=== PATIENT | male | born 1950 | race Caucasian/White ===

== ENCOUNTER 2018-07-21 13:22 | Observation (INO) | payer MEDICARE ==
[2018-07-21 13:52] LABS: Basophils % (A) 0 %; Eosinophils # (A) 0.2 k/uL (0-0.7); Eosinophils % (A) 3 %; HGB 13.8 gm/dL (13.0-17.5); Lymphocytes # (A) 1.4 k/uL (1.0-4.8); Lymphocytes % (A) 16 %; MCH 29.2 pg (25.0-35.0); MCHC 33.7 g/dL (31.0-37.0); MCV 86.7 fL (80.0-100.0); Mean Platelet Volume 6.7; Monocytes # (A) 0.5 k/uL (0-1.0); Monocytes % (A) 5 %; Neutrophils # (A) 6.8 k/uL (1.3-7.7); Neutrophils % (A) 75 %; Platelet Count 204 k/uL (150-450); RBC 4.74 m/uL (4.30-5.90); WBC 9.1 k/uL (3.8-10.6)
--- NOTE | 2018-07-21 13:52 | ED ---
General Adult HPI - General Chief complaint: Chest Pain Stated complaint: chest pain Time Seen by Provider: 07/21/18 13:29 Source: patient, RN notes reviewed, old records reviewed Mode of arrival: wheelchair Limitations: no limitations - History of Present Illness Initial comments: 68-year-old male presenting for evaluation of chest tightness. Patient states that over the past several weeks he's had progressive chest tightness which is relieved with nitroglycerin and rest. He has a history of coronary artery disease status post stenting. He was a previous smoker, is not currently smoking. He states that he took 2 nitroglycerin prior to arrival and has no complaints of chest pain or tightness at the time of my evaluation. No vomiting. He did have some associated diaphoresis with this tightness prior to arrival. He follows regularly with cardiology. Currently on aspirin and Plavix. - Related Data Home Medications Medication Instructions Recorded Confirmed Isosorbide Mononitrate ER [Imdur] 30 mg PO DAILY 04/29/15 07/21/18 Metoprolol Succinate (ER) [Toprol 100 mg PO QAM 04/29/15 07/21/18 XL] amLODIPine [Norvasc] 5 mg PO BID 04/29/15 07/21/18 Vit C/E/Zn/Coppr/Lutein/Zeaxan 1 cap PO BID 05/03/15 07/21/18 [Preservision Areds 2 Softgel] Quinapril HCl [Accupril] 20 mg PO BID 07/21/18 07/21/18 Simvastatin 80 mg PO HS 07/21/18 07/21/18 Previous Rx's Medication Instructions Recorded Aspirin 325 mg PO HS #30 tab 05/01/15 Clopidogrel [Plavix] 75 mg PO DAILY #90 tab 05/01/15 Nitroglycerin Sl Tabs [Nitrostat] 0.4 mg SUBLINGUAL Q5M PRN #25 tab 05/01/15 Allergies Allergy/AdvReac Type Severity Reaction Status Date / Time No Known Allergies Allergy Verified 07/21/18 13:50 Review of Systems ROS Statement: Those systems with pertinent positive or pertinent negative responses have been documented in the HPI. ROS Other: All systems not noted in ROS Statement are negative. Past Medical History Past Medical History: Cancer, Chest Pain / Angina, Eye Disorder, GERD/Reflux, Hyperlipidemia, Hypertension Additional Past Medical History / Comment(s): 05/01/15 Pt admitted to floor s/p PCI with stent. Other HX: R LUNG CANCER with surgery 2010, MACULAR DEGENERATION bilaterally, R eye retinal bleed, History of Any Multi-Drug Resistant Organisms: None Reported Past Surgical History: Heart Catheterization, Heart Catheterization With Stent Additional Past Surgical History / Comment(s): 05/01/15 PCI with stent to mid RCA radial approach. Other surgical history; 2010 RIGHT UPPER LOBECTOMY- RIGHT, 2010 AORTIC ANEURYSM REPAIR-STENT, PTCA x 3 vessels -NO STENTs in 1990, 02/19 bilateral cartaract removal with lens implants. Past Anesthesia/Blood Transfusion Reactions: No Reported Reaction Date of Last Stent Placement:: 05/01/15 Past Psychological History: No Psychological Hx Reported Smoking Status: Former smoker Past Alcohol Use History: Occasional Past Drug Use History: Unable to Obtain - Past Family History Mother Family Medical History: Cancer, Myocardial Infarction ([place]) Additional Family Medical History / Comment(s): BREAST CANCER. Mother at age 78 yrs of a [place] Father Family Medical History: Cancer, Prostate Disorder Additional Family Medical History / Comment(s): Father had prostate problems- possibly cancer of prostate and/or colon. He at age 65 yrs. General Exam Limitations: no limitations General appearance: alert, in no apparent distress Head exam: Present: atraumatic, normocephalic Eye exam: Present: normal appearance, PERRL Neck exam: Present: normal inspection, tenderness Respiratory exam: Present: normal lung sounds bilaterally. Absent: respiratory distress Cardiovascular Exam: Present: regular rate, normal rhythm GI/Abdominal exam: Present: soft. Absent: distended, tenderness, guarding Extremities exam: Present: normal inspection, normal capillary refill. Absent: pedal edema, calf tenderness Back exam: Present: normal inspection Neurological exam: Present: alert, oriented X3, CN II-XII intact. Absent: motor sensory deficit Psychiatric exam: Present: normal affect, normal mood Skin exam: Present: warm, dry, intact. Absent: cyanosis, diaphoretic Course Vital Signs 07/21/18 07/21/18 07/21/18 13:26 13:36 13:40 Temperature 97.9 F Pulse Rate 89 80 Respiratory 18 18 16 Rate Blood Pressure 157/92 151/100 O2 Sat by Pulse 98 95 Oximetry 07/21/18 07/21/18 07/21/18 13:50 14:00 14:10 Temperature Pulse Rate 77 81 84 Respiratory 14 18 18 Rate Blood Pressure 145/94 145/94 157/95 O2 Sat by Pulse 96 97 95 Oximetry EKG Findings - EKG Comments: EKG Findings:: EKG: Normal sinus rhythm, LVH, rate of 80, CA interval 166, QRS mormon 92, QTC [address] segment elevation Medical Decision Making - Medical Decision Making 68-year-old male presenting with chief complaint of chest pain. Pain relieved by nitroglycerin. Pain is typical in nature. Patient has history of previous CAD with stenting. He has no pain at the time my evaluation. EKG negative for ST segment elevation. Chest x-ray negative for acute cardiopulmonary disease. Patient has normal CBC, normal CMP, initial troponin is negative. Patient is given aspirin, started on heparin. He will be admitted for serial cardiac enzymes, telemetry, and cardiology consultation. Case is discussed with the admitting physician. - Lab Data Result diagrams: 07/21/18 13:30 07/21/18 13:30 Lab Results 07/21/18 07/21/18 07/21/18 Range/Units 13:30 13:30 13:30 WBC 9.1 (3.8-10.6) k/uL RBC 4.74 (4.30-5.90) m/uL Hgb 13.8 (13.0-17.5) gm/dL Hct 41.0 (39.0-53.0) % MCV 86.7 (80.0-100.0) fL MCH 29.2 (25.0-35.0) pg MCHC 33.7 (31.0-37.0) g/dL RDW 14.0 (11.5-15.5) % Plt Count 204 (150-450) k/uL Neutrophils % 75 % Lymphocytes % 16 % Monocytes % 5 % Eosinophils % 3 % Basophils % 0 % Neutrophils # 6.8 (1.3-7.7) k/uL Lymphocytes # 1.4 (1.0-4.8) k/uL Monocytes # 0.5 (0-1.0) k/uL Eosinophils # 0.2 (0-0.7) k/uL Basophils # 0.0 (0-0.2) k/uL PT 9.4 (9.0-12.0) sec INR 0.9 (<1.2) APTT 26.7 (22.0-30.0) sec Sodium 140 (137-145) mmol/L Potassium 4.2 (3.5-5.1) mmol/L Chloride 106 (98-107) mmol/L Carbon Dioxide 27 (22-30) mmol/L Anion Gap 7 mmol/L BUN 13 (9-20) mg/dL Creatinine 0.66 (0.66-1.25) mg/dL Est GFR (CKD-EPI)AfAm >90 (>60 ml/min/1.73 sqM) Est GFR (CKD-EPI)NonAf >90 (>60 ml/min/1.73 sqM) Glucose 94 (74-99) mg/dL Calcium 9.3 (8.4-10.2) mg/dL Magnesium 2.1 (1.6-2.3) mg/dL Total Bilirubin 0.8 (0.2-1.3) mg/dL AST 31 (17-59) U/L ALT 36 (21-72) U/L Alkaline Phosphatase 133 H (38-126) U/L Troponin I (0.000-0.034) ng/mL Total Protein 7.4 (6.3-8.2) g/dL Albumin 4.5 (3.5-5.0) g/dL 07/21/18 Range/Units 13:30 WBC (3.8-10.6) k/uL RBC (4.30-5.90) m/uL Hgb (13.0-17.5) gm/dL Hct (39.0-53.0) % MCV (80.0-100.0) fL MCH (25.0-35.0) pg MCHC (31.0-37.0) g/dL RDW (11.5-15.5) % Plt Count (150-450) k/uL Neutrophils % % Lymphocytes % % Monocytes % % Eosinophils % % Basophils % % Neutrophils # (1.3-7.7) k/uL Lymphocytes # (1.0-4.8) k/uL Monocytes # (0-1.0) k/uL Eosinophils # (0-0.7) k/uL Basophils # (0-0.2) k/uL PT (9.0-12.0) sec INR (<1.2) APTT (22.0-30.0) sec Sodium (137-145) mmol/L Potassium (3.5-5.1) mmol/L Chloride (98-107) mmol/L Carbon Dioxide (22-30) mmol/L Anion Gap mmol/L BUN (9-20) mg/dL Creatinine (0.66-1.25) mg/dL Est GFR (CKD-EPI)AfAm (>60 ml/min/1.73 sqM) Est GFR (CKD-EPI)NonAf (>60 ml/min/1.73 sqM) Glucose (74-99) mg/dL Calcium (8.4-10.2) mg/dL Magnesium (1.6-2.3) mg/dL Total Bilirubin (0.2-1.3) mg/dL AST (17-59) U/L ALT (21-72) U/L Alkaline Phosphatase (38-126) U/L Troponin I <0.012 (0.000-0.034) ng/mL Total Protein (6.3-8.2) g/dL Albumin (3.5-5.0) g/dL Critical Care Time Critical Care Time: Yes Total Critical Care Time: 35 Disposition Clinical Impression: Unstable angina pectoris, Chest pain Disposition: ADMITTED IP TO THIS [facility] Condition: Stable Is patient prescribed a controlled substance at d/c from ED?: No Referrals: Omar Luque MD [Primary Care Provider] - 1-2 days Decision to Admit Reason: Admit from EC Decision Date: 07/21/18 Decision Time: 14:51
--- NOTE | 2018-07-21 13:59 | XR ---
EXAMINATION TYPE: XR chest 2V DATE OF EXAM: 07/21/2018 COMPARISON: NONE HISTORY: Chest pain, coronary artery disease TECHNIQUE: Frontal and lateral views of the chest are obtained. FINDINGS: There is no focal air space opacity, pleural effusion, or pneumothorax seen. The cardiac silhouette size is within normal limits. The osseous structures are intact. There are overlying car diac leads. Aorta is dense. Surgical clips are present likely over the right hilar region. IMPRESSION: No acute cardiopulmonary process. Postop changes.
[2018-07-21 14:01] LABS: INR 0.9 (<1.2); Partial Thromboplastin Time 26.7 sec (22.0-30.0); Prothrombin Time 9.4 sec (9.0-12.0)
[2018-07-21 14:16] LABS: ALT 36 U/L (21-72); AST 31 U/L (17-59); Albumin 4.5 g/dL (3.5-5.0); Alkaline Phosphatase 133 U/L (38-126); Anion Gap 7 mmol/L; Blood Urea Nitrogen 13 mg/dL (9-20); Calcium 9.3 mg/dL (8.4-10.2); Carbon Dioxide 27 mmol/L (22-30); Chloride 106 mmol/L (98-107); Glucose 94 mg/dL (74-99); Magnesium 2.1 mg/dL (1.6-2.3); Potassium 4.2 mmol/L (3.5-5.1); Sodium 140 mmol/L (137-145); Total Bilirubin 0.8 mg/dL (0.2-1.3); Total Protein 7.4 g/dL (6.3-8.2)
[2018-07-21] MEDS ORDERED: ASPIRIN 325 MG TAB PO STA (14:39)
[2018-07-21] MEDS ORDERED: NITROGLYCERIN SL TABS 0.4 MG TAB SUBLINGUAL PRN ×2 (14:40→20:27)
[2018-07-21] MEDS ORDERED: HEPARIN SODIUM,PORCINE 5,000 UNIT/ML 1 ML VIAL IV PRN (14:44)
[2018-07-21] MEDS ORDERED: ACETAMINOPHEN TAB 325 MG TAB PO PRN (14:44)
[2018-07-21] MEDS ORDERED: NALOXONE 0.4 MG/ML 1 ML VIAL IV PRN (14:44)
[2018-07-21] MEDS ORDERED: HEPARIN SODIUM,PORCINE 5,000 UNIT/ML 1 ML VIAL IV ONE (14:44)
[2018-07-21] MEDS ORDERED: HEPARIN SOD,PORK IN 0.45% NACL 25,000 UNIT in 0.45% NACL 1 250ML.BAG IV SCH (14:45)
[2018-07-21] MEDS: ASPIRIN 325 MG TAB PO SCH (21:14)
[2018-07-21] MEDS: ATORVASTATIN 40 MG TAB PO SCH (21:35)
[2018-07-21] MEDS: amLODIPine 5 MG TAB PO SCH (21:35)
[2018-07-21] MEDS: VIT A,C & E-LUTEIN-MINERALS 1 EACH TAB PO SCH (21:36)
[2018-07-21] MEDS: LISINOPRIL 20 MG TAB PO SCH (21:36)
[2018-07-22 04:21] LABS: Basophils % (A) 1 %; Eosinophils # (A) 0.3 k/uL (0-0.7); Eosinophils % (A) 4 %; HCT 40.2 % (39.0-53.0); HGB 13.2 gm/dL (13.0-17.5); Lymphocytes # (A) 1.8 k/uL (1.0-4.8); Lymphocytes % (A) 26 %; MCHC 32.8 g/dL (31.0-37.0); MCV 88.4 fL (80.0-100.0); Mean Platelet Volume 6.7; Monocytes # (A) 0.5 k/uL (0-1.0); Monocytes % (A) 7 %; Neutrophils # (A) 4.2 k/uL (1.3-7.7); Neutrophils % (A) 61 %; Platelet Count 191 k/uL (150-450); RBC 4.55 m/uL (4.30-5.90); RDW 14.1 % (11.5-15.5); WBC 6.9 k/uL (3.8-10.6)
--- NOTE | 2018-07-22 10:12 | P.CRDCN ---
History of Present Illness History of present illness: This is a pleasant 68-year-old male past medical history significant for coronary artery disease status post balloon angioplasty and stent placement to the RCA, hypertension, dyslipidemia, abdominal aortic aneurysm status post endograft repair, obesity and former nicotine dependence. He follows in the office with Dr. Thompson. We've been asked to see him in consultation secondary to chest discomfort. He states for the previous 2 weeks he has been feeling discomfort in his chest. At first started about 2 weeks ago Wednesday while he was golfing he had to walk the course which is abnormal for him he typically will use a cart while he was finishing his 18-hole round of golf he started feeling a tightness in his chest. He stopped be was doing sat down on the tightness subsided. Again the following Wednesday while he was golfing he had a similar type episode while walking in 18-hole round of golf. This time he took one sublingual nitroglycerin and his symptoms subsided. Then again last night again while golfing and walking the course he made at this time only through 9 holes and he started having an intense tightness in the midsternal region that was radiating to the left shoulder and a little bit into the back. This time he became mildly short of breath, lightheaded and extremely flushed feeling. He took one sublingual nitroglycerin and the symptoms eased up but did not entirely go away. He walks to his car sat down and continued to have chest discomfort. He took a second nitroglycerin and his symptoms began eased but did not completely go away. He felt as though his chest pain was significant enough to where he did not finish his round of golf. He took a third nitroglycerin and came to the hospital. Upon arrival to the emergency department his chest discomfort had subsided. He is seen and examined resting comfortably in bed in no acute distress. He has had no further symptoms of chest discomfort however he states he has not come up out of bed. EKG upon arrival reveals sinus mechanism with no acute ST or T-wave abnormalities noted. Repeat EKG this morning is the same. Chest x-ray is negative for an acute cardiopulmonary process. Laboratory data reviewed, WBC 6.9, hemoglobin 13.2, platelets 191, cardiac enzymes negative 3, sodium 140, potassium 4.2, creatinine 0.66, GFR greater than 90, magnesium 2.1. Current cardiac medications include Toprol 100 mg daily, Plavix 75 mg daily, Imdur 30 mg daily, quinapril 20 mg twice a day, amlodipine 5 mg twice a day, aspirin 325 mg daily and simvastatin 80 mg daily. Most recent cardiac catheterization 2015 revealed 70-80% calcification in mid- RCA, LAD with 30-40% stenosis throughout, circumflex proximal 40-50% narrowing, dilated OM with 50% proximal stenosis, beyond the OM another narrowing of the distal circumflex 60-70%. He underwent successful stent placement to the RCA at that time. Most recent echocardiogram obtained in the office May 2017 reveals preserved LV systolic function with ejection fraction 50%, mild concentric left ventricular hypertrophy, hypokinesia of the inferior wall at the base, mildly dilated RV, mild-mod AR and mild TR. At the time of my exam: CONSTITUTIONAL: Denies fever. Denies chills. EYES: Denies blurred vision. Denies vision changes. Denies eye pain. EARS, NOSE, MOUTH & THROAT: Denies headache. Denies sore throat. Denies ear pain. CARDIOVASCULAR: Denies chest pain. Denies shortness of breath. Denies orthopnea. Denies PND. Denies palpitations. RESPIRATORY: Denies cough. GASTROINTESTINAL: Denies abdominal pain. Denies diarrhea. Denies constipation. Denies nausea. Denies vomiting. MUSCULOSKELETAL: Denies myalgias. INTEGUMENTARY: Denies pruitis. Denies rash. NEUROLOGIC: Denies numbness. Denies tingling. Denies weakness. PSYCHIATRIC: Denies anxiety. Denies depression. ENDOCRINE: Denies fatigue. Denies weight change. Denies polydipsia. Denies polyurina. GENITOURINARY: Denies burning, hematuria or urgency with micturation. HEMATOLOGIC: Denies history of anemia. Denies bleeding. Blood pressure 160/89 heart rate 74 afebrile maintaining oxygen saturation on room air GENERAL: This is a 68-year-old male in no apparent distress at the time of my examination. HEENT: Head is atraumatic, normocephalic. Pupils are equal, round. Sclerae anicteric. Conjunctivae are clear. Mucous membranes of the mouth are moist. Neck is supple. There is no jugular venous distention. No carotid bruit is heard. LUNGS: Clear to auscultation no wheezes, rales or rhonchi. No chest wall tenderness is noted on palpation or with deep breathing. HEART: Regular rate and rhythm without murmurs, rubs or gallops. S1 and S2 heard. ABDOMEN: Soft, nontender. Bowel sounds are heard. No organomegaly noted. EXTREMITIES: No evidence of peripheral edema and no calf tenderness noted. VASCULAR: Radial and dorsalis pedis pulses palpated, no evidence of clubbing. NEUROLOGIC: Patient is awake, alert and oriented x3. ASSESSMENT Unstable angina suggestive of progression of coronary artery disease History of coronary artery disease History of abdominal aortic aneurysm s/p endograft stent placement per vascular surgery Hypertension Dyslipidemia Former nicotine dependence Obesity, BMI 32 PLAN We recommend proceeding with coronary angiography to assess for progression of coronary artery disease. I have discussed the risks, benefits and alternative therapies for the above-mentioned procedure and for both sedation/analgesia as well as necessary blood product administration, if indicated, as they pertain to this patient. The patient has indicated understanding and acceptance of the risks and procedures discussed. Questions have been answered appropriately. He is agreeable to move forward with the above stated procedure. We will contact his primary professor of physical education Dr. Thompson and make plans for the procedure. Obtain 2D echocardiogram and doppler study to assess cardiac structure and function. Continue aspirin, plavix, imdur, toprol, lisinopril, amlodipine and simvastatin as previously ordered. Further recommendations to follow based on clinical course. Nurse Practitioner note has been reviewed, I agree with a documented findings and plan of care. Patient was seen and examined. Past Medical History Past Medical History: Coronary Artery Disease (CAD), Cancer, Chest Pain / Angina, Eye Disorder, GERD/Reflux, Hyperlipidemia, Hypertension Additional Past Medical History / Comment(s): R lung cancer with surgery in 2010, aortic aneurysm with surgery 2010, bilateral macular de generation/bilateral retinal bleeds-gets eye injections q 5 weeks. History of Any Multi-Drug Resistant Organisms: None Reported Past Surgical History: Heart Catheterization, Heart Catheterization With Stent Additional Past Surgical History / Comment(s): 05/01/15 PCI with stent to mid RCA radial approach, 2010 RIGHT UPPER LOBECTOMY, 2010 AORTIC ANEURYSM REPAIR- WITH STENT, PTCA x 3 vessels in 1990, bilateral cartaract removal with lens implants, COLONOSCOPY. Past Anesthesia/Blood Transfusion Reactions: No Reported Reaction Date of Last Stent Placement:: 05/01/15 Smoking Status: Former smoker - Past Family History Mother Family Medical History: Cancer, Myocardial Infarction ([place]) Additional Family Medical History / Comment(s): BREAST CANCER. Mother at age 78 yrs of a [place] Father Family Medical History: Cancer, Prostate Disorder Additional Family Medical History / Comment(s): Father had prostate problems- possibly cancer of prostate and/or colon. He at age 65 yrs. Medications and Allergies Home Medications Medication Instructions Recorded Confirmed Type Isosorbide Mononitrate ER [Imdur] 30 mg PO DAILY 04/29/15 07/21/18 History Metoprolol Succinate (ER) [Toprol 100 mg PO QAM 04/29/15 07/21/18 History XL] amLODIPine [Norvasc] 5 mg PO BID 04/29/15 07/21/18 History Aspirin 325 mg PO HS #30 tab 05/01/15 07/21/18 Rx Clopidogrel [Plavix] 75 mg PO DAILY #90 tab 05/01/15 07/21/18 Rx Nitroglycerin Sl Tabs [Nitrostat] 0.4 mg SUBLINGUAL Q5M PRN #25 tab 05/01/15 07/21/18 Rx Vit C/E/Zn/Coppr/Lutein/Zeaxan 1 cap PO BID 05/03/15 07/21/18 History [Preservision Areds 2 Softgel] Quinapril HCl [Accupril] 20 mg PO BID 07/21/18 07/21/18 History Simvastatin 80 mg PO HS 07/21/18 07/21/18 History Allergies Allergy/AdvReac Type Severity Reaction Status Date / Time No Known Allergies Allergy Verified 07/21/18 13:50 Physical Exam Vitals: Vital Signs Temp Pulse Pulse Resp BP BP Pulse Ox 07/22/18 08:00 18 07/22/18 07:30 97.5 F L 74 18 160/89 96 07/22/18 04:00 98.2 F 73 18 150/80 94 L 07/22/18 03:39 18 07/22/18 00:00 98.3 F 79 18 145/78 95 07/21/18 21:08 95 07/21/18 20:00 18 07/21/18 19:14 98.1 F 77 18 154/84 95 07/21/18 15:44 98.8 F 78 18 156/89 96 05/16/19 15:30 166/86 07/21/18 15:20 166/86 95 07/21/18 15:10 154/88 07/21/18 15:00 98.0 F 75 18 165/90 95 07/21/18 14:50 76 18 165/90 94 L 07/21/18 14:40 76 18 146/86 95 07/21/18 14:30 75 18 146/84 95 07/21/18 14:20 80 17 146/84 96 07/21/18 14:10 84 18 157/95 95 07/21/18 14:00 81 18 145/94 97 07/21/18 13:50 77 14 145/94 96 07/21/18 13:40 80 16 151/100 95 07/21/18 13:36 18 07/21/18 13:26 97.9 F 89 18 157/92 98 Intake and Output 07/21/18 07/22/18 07/22/18 22:59 06:59 14:59 Intake Total 304.112 Balance 304.112 Intake: Intake, IV Titration 64.112 Amount Heparin Sod,Pork in 0.45% 64.112 NaCl 25,000 unit In 0.45 % NaCl 1 250ml.bag @ 10 UNITS/KG/HR 10.07 mls/hr IV .Q24H [facility] Rx#: [id number] Oral 240 Other: Voiding Method Toilet Toilet Toilet # Voids 1 Results 07/22/18 03:52 07/21/18 13:30 Cardiac Enzymes 07/21/18 07/21/18 07/21/18 Range/Units 13:30 13:30 19:38 AST 31 (17-59) U/L Troponin I <0.012 <0.012 (0.000-0.034) ng/mL 07/22/18 Range/Units 01:05 AST (17-59) U/L Troponin I <0.012 (0.000-0.034) ng/mL Coagulation 07/21/18 07/21/18 07/22/18 Range/Units 13:30 21:02 03:52 PT 9.4 (9.0-12.0) sec APTT 26.7 43.2 H 53.2 H (22.0-30.0) sec 07/22/18 Range/Units 07:29 PT (9.0-12.0) sec APTT 55.8 H (22.0-30.0) sec CBC 07/21/18 07/22/18 Range/Units 13:30 03:52 WBC 9.1 6.9 (3.8-10.6) k/uL RBC 4.74 4.55 (4.30-5.90) m/uL Hgb 13.8 13.2 (13.0-17.5) gm/dL Hct 41.0 40.2 (39.0-53.0) % Plt Count 204 191 (150-450) k/uL Comprehensive Metabolic Panel 07/21/18 Range/Units 13:30 Sodium 140 (137-145) mmol/L Potassium 4.2 (3.5-5.1) mmol/L Chloride 106 (98-107) mmol/L Carbon Dioxide 27 (22-30) mmol/L BUN 13 (9-20) mg/dL Creatinine 0.66 (0.66-1.25) mg/dL Glucose 94 (74-99) mg/dL Calcium 9.3 (8.4-10.2) mg/dL AST 31 (17-59) U/L ALT 36 (21-72) U/L Alkaline Phosphatase 133 H (38-126) U/L Total Protein 7.4 (6.3-8.2) g/dL Albumin 4.5 (3.5-5.0) g/dL Current Medications Generic Name Dose Route Start Last Admin Trade Name Freq PRN Reason Stop Dose Admin Acetaminophen 650 mg 07/21/18 14:44 Tylenol Tab PO Q6HR PRN Mild Pain or Fever > 100.5 Amlodipine Besylate 5 mg 07/21/18 21:00 07/21/18 21:35 Norvasc PO 5 mg BID NARESH Administration Aspirin 325 mg 07/21/18 21:00 07/21/18 21:14 Aspirin PO Not Given HS [facility] Atorvastatin Calcium 40 mg 07/21/18 21:00 07/21/18 21:35 Lipitor PO 40 mg HS NARESH Administration Clopidogrel Bisulfate 75 mg 07/22/18 09:00 Plavix PO DAILY [facility] Heparin Sodium (Porcine) 0 unit 07/21/18 14:44 Heparin IV PER PROTOCOL PRN Low PTT Protocol Heparin Sodium/Sodium Chloride 250 mls @ 10.07 mls/hr 07/21/18 14:45 07/21/18 21:43 25,000 unit/ Sodium Chloride IV 12 units/kg/hr .Q24H NARESH 12.084 mls/hr Titration Protocol 10 UNITS/KG/HR Isosorbide Mononitrate 30 mg 07/22/18 09:00 Imdur PO DAILY [facility] Lisinopril 20 mg 07/21/18 21:00 07/21/18 21:36 Zestril PO 20 mg BID [facility] Administration Metoprolol Succinate 100 mg 07/22/18 09:00 Toprol Xl PO QAM [facility] Multivitamins/Minerals 1 each 07/21/18 21:00 07/21/18 21:36 Ivite PO 1 each BID [facility] Administration Naloxone HCl 0.2 mg 07/21/18 14:44 Narcan IV Q2M PRN Opioid Reversal Nitroglycerin 0.4 mg 07/21/18 20:27 Nitrostat SUBLINGUAL Q5M PRN Chest Pain Intake and Output 07/21/18 07/22/18 07/22/18 22:59 06:59 14:59 Intake Total 304.112 Balance 304.112 Intake: Intake, IV Titration 64.112 Amount Heparin Sod,Pork in 0.45% 64.112 NaCl 25,000 unit In 0.45 % NaCl 1 250ml.bag @ 10 UNITS/KG/HR 10.07 mls/hr IV .Q24H [facility] Rx#: [id number] Oral 240 Other: Voiding Method Toilet Toilet Toilet # Voids 1 07/22/18 03:52 07/21/18 13:30
[2018-07-22] MEDS: METOPROLOL SUCCINATE (ER) 100 MG TAB.ER.24H PO SCH (10:37)
[2018-07-22] MEDS: ASPIRIN 325 MG TAB PO SCH (10:37)
[2018-07-22] MEDS: VIT A,C & E-LUTEIN-MINERALS 1 EACH TAB PO SCH ×2 (10:37→20:18)
[2018-07-22] MEDS: CLOPIDOGREL 75 MG TAB PO SCH (10:38)
[2018-07-22] MEDS: LISINOPRIL 20 MG TAB PO SCH ×2 (10:38→20:14)
[2018-07-22] MEDS: ISOSORBIDE MONONITRATE ER 30 MG TAB.ER.24H PO SCH (10:38)
[2018-07-22] MEDS: amLODIPine 5 MG TAB PO SCH ×2 (10:38→20:14)
[2018-07-22] MEDS ORDERED: ALPRAZolam 0.5 MG TAB PO PRN (10:40)
[2018-07-22] MEDS ORDERED: ALPRAZolam 0.25 MG TAB PO PRN (10:40)
--- NOTE | 2018-07-22 10:46 | ECHOF ---
Referral Reason:cp MEASUREMENTS -------- HEIGHT: 175.3 cm WEIGHT: 100.7 kg BP: 160/89 RVIDd: 3.2 cm (< 3.3) IVSd: 1.5 cm (0.6 - 1.1) LVIDd: 4.3 cm (3.9 - 5.3) LVPWd: 1.5 cm (0.6 - 1.1) IVSs: 1.9 cm LVIDs: 3.2 cm LVPWs: 1.9 cm LA Diam: 3.8 cm (2.7 - 3.8) LAESV Index (A-L): 26.58 ml/m Ao Diam: 3.8 cm (2.0 - 3.7) AV Cusp: 2.6 cm (1.5 - 2.6) MV EXCURSION: 17.332 mm (> 18.000) MV EF SLOPE: 49 mm/s (70 - 150) EPSS: 1.1 cm MV E Abdelrahman: 0.92 m/s MV DecT: 209 ms MV A Abdelrahman: 1.14 m/s MV E/A Ratio: 0.81 AR PHT: 644 ms RAP: 5.00 mmHg RVSP: 36.66 mmHg FINDINGS -------- Sinus rhythm. This was a technically difficult study with suboptimal views. The left ventricular size is normal. There is moderate concentric left ventricular hypertrophy. O verall left ventricular systolic function is normal with, an EF between 60 - 65 %. The right ventricle is normal in size. Normal LA size by volume 22+/-6 ml/m2. The right atrium is normal in size. 3 ml of Lumason was utilized for enhancement of images. Interatrial and interventricular septum intact. The aortic valve is trileaflet and appears structurally normal. Mild mitral annular calcification present. Mild tricuspid regurgitation present. There is mild pulmonary hypertension. The right ventricular systolic pressure, as measured by Doppler, is 36.66mmHg. The pulmonic valve was not well visualized. The aortic root is dilated measuring 3.8cm. IVC Not well visulized. There is no pericardial effusion. CONCLUSIONS -------- 1. Sinus rhythm. 2. This was a technically difficult study with suboptimal views. 3. The left ventricular size is normal. 4. There is moderate concentric left ventricular hypertrophy. 5. Overall left ventricular systolic function is normal with, an EF between 60 - 65 %. 6. The right ventricle is normal in size. 7. Normal LA size by volume 22+/-6 ml/m2. 8. The right atrium is normal in size. 9. 3 ml of Lumason was utilized for enhancement of images. 10. Interatrial and interventricular septum intact. 11. The aortic valve is trileaflet and appears structurally normal. 12. Mild mitral annular calcification present. 13. Mild tricuspid regurgitation present. 14. There is mild pulmonary hypertension. 15. The right ventricular systolic pressure, as measured by Doppler, is 36.66mmHg. 16. The pulmonic valve was not well visualized. 17. The aortic root is dilated measuring 3.8cm. 18. IVC Not well visulized. 19. There is no pericardial effusion. SOCIAL MEDIA SPECIALIST: Shaina Reynolds RDCS
[2018-07-22] MEDS ORDERED: LIDOCAINE 1% INJ 10MG/ML (20 ML MDV) ONE (13:22)
[2018-07-22] MEDS ORDERED: VERAPAMIL 2.5 MG/ML 2 ML AMP ONE (13:22)
[2018-07-22] MEDS ORDERED: HEPARIN SODIUM 1,000 UN/ML (10ML VL) ONE (13:22)
[2018-07-22] MEDS ORDERED: IV FLUID CONTINUATION 250 ML IV ONE (13:30)
[2018-07-22] MEDS ORDERED: MIDAZOLAM (PF) 2 MG/2 ML VIAL IV ONE (13:56)
[2018-07-22] MEDS ORDERED: LIDOCAINE 1% INJ 10MG/ML (20 ML MDV) SQ ONE (14:14)
[2018-07-22] MEDS ORDERED: VERAPAMIL SYRINGE (5 MG/10 ML) INTRAARTER ONE ×3 (14:16→15:27)
[2018-07-22] MEDS ORDERED: BIVALIRUDIN BOLUS 250 MG/50 ML IV ONE (14:44)
[2018-07-22] MEDS ORDERED: BIVALIRUDIN 250 MG in SODIUM CHLORIDE 0.9% 35 ML IV ONE (14:44)
[2018-07-22] MEDS ORDERED: IOPAMIDOL-370 125ML BTL INJ ONE (14:49)
--- NOTE | 2018-07-22 14:54 | HP ---
HISTORY AND PHYSICAL DATE OF ADMISSION: 07/21/2018 DATE OF SERVICE: 07/22/2018 PRESENTING COMPLAINT: Chest pain. HISTORY OF PRESENTING COMPLAINT: This is a very pleasant 68-year-old patient of Dr. Omar Luque. Chronic stable medical conditions include GERD, hyperlipidemia, hypertension. Patient's last stent was in 2015. In April of last year the patient did have a negative stress test. The patient 2 weeks ago played 18 holes of golf. On the 17th hole to the 18th hole the patient developed chest tightness, then when he rested it got better. The same thing happened the following week. The patient also on the 9th hole did get pain across the chest. There was no radiation, no perspiration, but patient did feel flushed and rundown. Patient did take a nitroglycerin. He was admitted with unstable angina. Serial cardiac enzymes were ordered. Cardiology was consulted. REVIEW OF SYSTEMS: CONSTITUTIONAL: Tired. HEENT: None. RESPIRATORY: None. CARDIOVASCULAR: As above. GASTROINTESTINAL: None. GENITOURINARY: None. MUSCULOSKELETAL: None. DERMATOLOGICAL: None. HEMATOLOGICAL: None. LYMPHATICS: None. PSYCHIATRY: None. NEUROLOGICAL: None. PAST MEDICAL HISTORY: 1. Coronary artery disease. 2. Eye disorder. 3. GERD. 4. Hyperlipidemia. 5. Hypertension. 6. Right leg cancer with surgery in 2010. 7. Aortic aneurysm with surgery in 2010. 8. Bilateral macular degeneration with retinal bleeds. Gets eye injections every 5 weeks. PAST SURGICAL HISTORY: 1. Cardiac cath with stent in 2015. Stent to the mid RCA. 2. Right upper lobe lobectomy. 3. Aortic aneurysm repair in 2010. 4. Bilateral cataract removal and lens implants. SOCIAL HISTORY: . Patient started smoking in 1965 and was a 2- [id number] smoker of cigarettes and he also smoked pipes. Stopped in 2010. Alcohol occasionally. 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 FAMILY HISTORY: Mother at age 78 from [place] and also breast cancer. HOME MEDICATIONS: 1. Simvastatin 80 mg at bedtime. 2. Aspirin 325 p.o. at bedtime. 3. Norvasc 5 mg b.i.d. 4. PreserVision Areds-2 Soft Gel 1 capsule p.o. b.i.d. 5. Accupril 20 mg b.i.d. 6. Nitrostat 0.4 sublingually q.5 p.r.n. 7. Toprol-XL 100 mg p.o. daily. 8. Imdur ER 30 mg p.o. daily. 9. Plavix 75 mg p.o. daily. ALLERGIES: NONE. PHYSICAL EXAMINATION: VITAL SIGNS ON PRESENTATION: Temperature 97.9, pulse 89, respiration 18, blood pressure 157/92, pulse ox 98% on room air. GENERAL APPEARANCE: Average build. BMI 32.8. Lying in bed, not in distress. EYES: Pupils equal. Conjunctivae normal. HEENT: External appearance of nose and ears normal. Oral cavity normal. NECK: JVD not raised. Mass not palpable. RESPIRATORY: Effort normal. LUNGS: Slightly decreased breath sounds. CARDIOVASCULAR: First and second sounds normal. No edema. ABDOMEN: Soft, non-tender. Liver and spleen not palpable. LYMPHATIC: No lymph node palpable in neck or axillae. PSYCHIATRY: Alert and oriented x3. Mood and affect normal. NEUROLOGICAL: Pupils equal. Cranial nerves grossly intact. Power and sensation grossly intact. INVESTIGATIONS: White count 9.1, hemoglobin 13.8, potassium 4.2. BUN and creatinine are normal. Troponin x3 negative. Two-D echocardiogram showed EF of 60% to 65%, concentric left ventricular hypertrophy. EKG tracing, personally reviewed by me, shows normal sinus rhythm. Chest x-ray film, personally reviewed by me, shows some cardiomegaly; lung armando unremarkable. ASSESSMENT: 1. Unstable angina in a patient with known prior coronary artery disease. 2. Obesity, body mass index 32.8. 3. Coronary artery disease with prior history of stent in 2016. 4. Essential hypertension. 5. Hyperlipidemia. PLAN: Home medications are resumed. Serial cardiac enzymes were ordered. Cardiology was consulted. Later I was informed that the patient will be going for a cardiac catheterization. Care was discussed with the patient. MMODL / IJN: [id number] /
[2018-07-22] MEDS ORDERED: IOPAMIDOL-370 100ML BTL INJ ONE ×2 (15:19→15:28)
[2018-07-22] MEDS ORDERED: HYDROmorphone 1 MG/ML 1 ML SYRINGE ONE (15:23)
[2018-07-22] MEDS ORDERED: NITROGLYCERIN 1000MCG/10ML SYRINGE INTRACORON ONE (15:24)
[2018-07-22] MEDS ORDERED: HYDROmorphone 1 MG/ML 1 ML SYRINGE IVP ONE (15:24)
[2018-07-22] MEDS ORDERED: CLOPIDOGREL 75 MG TAB ONE (15:27)
[2018-07-22] MEDS ORDERED: CLOPIDOGREL 75 MG TAB PO ONE (15:28)
[2018-07-22] MEDS ORDERED: NITROGLYCERIN SL TABS 0.4 MG TAB SUBLINGUAL PRN (15:37)
[2018-07-22] MEDS ORDERED: ZOLPIDEM 5 MG TAB PO PRN (15:37)
[2018-07-22] MEDS ORDERED: RX INFO: IV CONTRAST WAS GIVEN 1 EACH MISC MISCELLANE PRN (15:37)
[2018-07-22] MEDS ORDERED: ATROPINE SULFATE 0.1 MG/ML 10ML SYRINGE IV PRN (15:37)
[2018-07-22] MEDS ORDERED: MAG HYDROX/AL HYDROX/SIMETH 30 ML CUP PO PRN (15:37)
--- NOTE | 2018-07-22 18:39 | PCN ---
PROCEDURE NOTE DATE OF SERVICE: 07/22/2018 PROCEDURE: 1. Left heart catheterization and coronary angiography. 2. Percutaneous transluminal coronary angioplasty and stenting of proximal right coronary artery with a drug-eluting stent. 3. Percutaneous transluminal coronary angioplasty and stenting of proximal and mid circumflex with 2 separate drug-eluting stents. PERFORMED BY: Dr. Hedy Thompson. SEDATION: Moderate conscious sedation time was 77 minutes. The patient received Versed. His oxygen saturation, hemodynamics and EKG were monitored closely. CLINICAL INFORMATION: Mr. Del Valle is a 68-year-old gentleman with a known history of CAD, multiple PCIs. Initially in 1989 and 1990, I performed stenting of the first obtuse marginal branch of circumflex and also mid circumflex. I performed PTCA but did not do any stenting at that time. He almost has 2 separate ostia for the LAD and circumflex. As recently as April of 2015 I performed stenting of a very difficult RCA mid lesion which was also tortuous, calcified, and a 3.5 caliber 9 mm drug-eluting stent was deployed. The patient has been doing remarkably well but of late had symptoms of chest pain which culminated in hospitalization with unstable angina yesterday without elevation of enzymes. He was advised coronary angiography, and after due discussion regarding risks, benefits and options, he was brought in for the procedure. PROCEDURE NOTE: Under local anesthesia and strict aseptic precautions, a 6-Romanian introducer was placed in the right radial artery. Using an Ultimate 1 catheter, I performed selective coronary angiography of the LAD, but I could not get selective injection of the circumflex, which almost came from 2 separate origins. I used a standard right Mable type guide catheter for selective coronary angiography of the right coronary artery. I used an Ultimate 1 catheter to check LV pressures but did not perform an LV gram. I noted that there was a significant lesion in the proximal RCA and also proximal circumflex and proceeded to perform intervention in the same setting. CARDIAC CATHETERIZATION FINDINGS: The left ventricular end-diastolic pressure was about 12 mmHg without any gradient across the aortic valve. CORONARY ANGIOGRAPHY FINDINGS: RIGHT CORONARY ARTERY: Technically a very dominant vessel which has multiple areas of narrowing and ectatic segments, but very proximally there is an eccentric area of narrowing of about 70%, best seen in the cranial projection. The previously stented vessel in the mid RCA is widely patent without any evidence of significant restenosis. There is about a 30% narrowing noted. This large vessel bifurcates into PDA and PLV. The PDA is larger, has minor irregularities. PLV is smaller but provides collaterals to the distal branches of the circumflex. LEFT MAIN CORONARY ARTERY: This does not exist and there are almost 2 separate origins for the LAD and circumflex. LEFT ANTERIOR DESCENDING CORONARY ARTERY: Good-caliber vessel, has moderate calcification. In the proximal one third there is about a 40% proximal lesion, then the caliber improves, gives off diagonal and septal branches, runs all the way to the apex to supply the apical portion of the left ventricle. No significant disease in the LAD. LEFT POSTERIOR CIRCUMFLEX CORONARY ARTERY: Technically this is a nondominant vessel which was dilated in 1989 and 1990. Very tortuous vessel. Proximally has an eccentric 80% to 90% lesion which represents progression of disease. It then gives off a very high obtuse marginal that comes at a 90-degree angle. This has a 50% to 60% narrowing and then it continues as a second obtuse marginal which has a 60% to 70% narrowing. Both these vessels are unchanged. Just before the bifurcation, there is a focal 80% stenosis in the mid circumflex. Proximal circumflex has 80% to 90%. Mid circumflex has 80% lesion. Both the obtuse marginals have significant disease. Technically, both obtuse marginals are very difficult to perform intervention, but the proximal and mid circumflex seem amenable. LEFT VENTRICULOGRAM: This was not performed. FINAL IMPRESSION: This patient has a right-dominant system. No restenosis at the site of previous stenting, but proximal RCA has a 75% eccentric lesion and circumflex proximally and in mid portion has an 80% to 90% and another 70% to 80% lesion in the proximal and mid segments. Both obtuse marginal branches have disease. LAD has 40% narrowing, calcification, but no significant disease. Filling pressures are normal and no gradient across aortic valve. RECOMMENDATIONS: I recommended PCI of both RCA and circumflex and proceeded to perform in the same setting. PERCUTANEOUS CORONARY INTERVENTION PROCEDURE DETAILS: The patient was administered Angiomax bolus and infusion. He also received 300 mg of Plavix orally; patient was already on Plavix. Using a standard right Mable catheter and a run-through wire, I advanced the wire distally and kept it. Without predilatation, proximal RCA was stented with a 3.5 caliber 8 mm Xience stent up to 15 atmospheres. Excellent angiographic result was achieved. Patient had chest pain, but no significant EKG changes. Excellent angiographic result was achieved. I then switched over to a standard left Mable type guide catheter to cannulate the left circumflex coronary artery. The same run-through wire was kept distally in the second obtuse marginal branch. I advanced a 2.5 caliber NC Trek balloon of 12 mm length, but I could not go beyond the bifurcation because of extreme tortuosity and calcification. I pre-dilated both the lesions of the mid and proximal circumflex, but did not go into the obtuse marginal branches. I then deployed a 2.5 caliber 8 mm Xience stent in the mid lesion at 13 atmospheres and then a 3.25 caliber 8 mm Xience stent in the proximal circumflex at 14 atmospheres. Excellent angiographic result was achieved. Patient had chest pain, but no significant EKG changes. The sheath was taken out and a TR band applied as per protocol. Saturation in the fingers of the right hand was 95%. Excellent angiographic result without complication was achieved. Results were discussed with the patient and family and he was sent to the room in stable condition. MMODL / IJN: [id number] /
[2018-07-22] MEDS: SODIUM CHLORIDE 0.9% 1,000 ML IV SCH (18:53)
[2018-07-22] MEDS: ATORVASTATIN 40 MG TAB PO SCH (20:14)
[2018-07-22] MEDS ORDERED: ASPIRIN 81 MG PO SCH (21:00)
[2018-07-22 23:39] VITALS: RESP 18
[2018-07-23] MEDS: SODIUM CHLORIDE 0.9% 1,000 ML IV SCH (04:24)
[2018-07-23 05:51] LABS: Basophils % (A) 1 %; Eosinophils # (A) 0.3 k/uL (0-0.7); Eosinophils % (A) 4 %; HCT 41.1 % (39.0-53.0); HGB 13.1 gm/dL (13.0-17.5); Lymphocytes # (A) 1.1 k/uL (1.0-4.8); Lymphocytes % (A) 14 %; MCH 28.1 pg (25.0-35.0); MCHC 31.9 g/dL (31.0-37.0); MCV 88.2 fL (80.0-100.0); Mean Platelet Volume 7.2; Monocytes # (A) 0.4 k/uL (0-1.0); Monocytes % (A) 6 %; Neutrophils # (A) 5.7 k/uL (1.3-7.7); Neutrophils % (A) 74 %; Platelet Count 180 k/uL (150-450); RBC 4.66 m/uL (4.30-5.90); RDW 14.2 % (11.5-15.5); WBC 7.7 k/uL (3.8-10.6)
[2018-07-23 06:09] LABS: Anion Gap 5 mmol/L; Blood Urea Nitrogen 16 mg/dL (9-20); Calcium 8.9 mg/dL (8.4-10.2); Carbon Dioxide 25 mmol/L (22-30); Chloride 110 mmol/L (98-107); Glucose 90 mg/dL (74-99); Potassium 4.3 mmol/L (3.5-5.1); Sodium 140 mmol/L (137-145)
[2018-07-23] MEDS: LISINOPRIL 20 MG TAB PO SCH (10:04)
[2018-07-23] MEDS: METOPROLOL SUCCINATE (ER) 100 MG TAB.ER.24H PO SCH (10:04)
[2018-07-23] MEDS: ISOSORBIDE MONONITRATE ER 30 MG TAB.ER.24H PO SCH (10:04)
[2018-07-23] MEDS: amLODIPine 5 MG TAB PO SCH (10:04)
[2018-07-23] MEDS: CLOPIDOGREL 75 MG TAB PO SCH (10:04)
[2018-07-23] MEDS: VIT A,C & E-LUTEIN-MINERALS 1 EACH TAB PO SCH (10:10)
--- NOTE | 2018-07-23 11:18 | PN ---
PROGRESS NOTE Mr. Del Valle is a 68-year-old male who presented with symptoms of angina pectoris underwent coronary angioplasty and stenting yesterday by Dr. Hedy Thompson. He underwent stenting of the right coronary artery and circumflex. He is feeling well this morning. His breathing is stable. He denies any chest pain. No dizziness or palpitation. No nausea. He continues to be on aspirin once a day, Lipitor 40 mg daily, Plavix 75 mg daily, Imdur 30 mg daily, lisinopril 20 mg twice a day, metoprolol succinate 100 mg daily. PHYSICAL EXAMINATION: Blood pressure 140/70 with a heart rate in 70s. LUNGS: Clear. Heart regular rate and rhythm. S1, S2. No S3. No rub. ABDOMEN: Soft, nontender. Right radial pulse intact. EXTREMITIES: No edema. LAB DATA: Hemoglobin of 13.1. BUN and creatinine 16 and 0.62. IMPRESSION: 1. Status post 2-vessel stenting. 2. Hypertension. 3. Hyperlipidemia. RECOMMENDATION: Patient should be able to be discharged home today and followed as an outpatient. MMODL / IJN: [id number] /
[2018-07-23 12:25] VITALS: BMI 32.8
[2018-07-23 13:03] VITALS: BP 133/78; PULSE 79; TEMP 98.6
--- NOTE | 2018-07-23 20:30 | DS ---
DISCHARGE SUMMARY DATE OF ADMISSION: 07/21/2018 DATE OF DISCHARGE: 07/23/2018 FINAL DIAGNOSES: 1. Unstable angina in a patient with known prior history of coronary artery disease. 2. Obesity, BMI 32.8. 3. Coronary artery disease with prior history of stent in 2016. 4. Essential hypertension. 5. Hyperlipidemia. PROCEDURE PERFORMED: Cardiac catheterization with angioplasty and stenting with drug eluting stent to the RCA and circumflex. CONSULTATION: Cardiology, Dr. Hedy Thompson/Dr. Lopez. HOSPITAL COURSE: This patient presented with unstable angina. Troponins were negative. 2D echo showed preserved LV function. Cardiac catheterization was done. Stent was placed in the circumflex and RCA. More details in cardiology notes. Today patient is up and about no cardiac symptoms. Care was discussed in detail with the patient. Questions were answered. Discussion and discharge planning more than 35 minutes. EXAMINATION: Temp 98.6, pulse 79, respiratory 18, blood pressure 133/78, pulse ox 95% on room air. Lungs fair entry. Cardiovascular: First and second sounds normal. INVESTIGATIONS: Troponins negative. 2D echo as above. DISCHARGE GO MEDICATIONS: 1. Imdur ER 30 mg daily. 2. Toprol-XL 100 mg p.o. daily. 3. Norvasc 5 mg p.o. b.i.d. 4. Plavix 75 mg p.o. daily. 5. Nitrostat 0.4 sublingual q.5 p.r.n. 6. PreserVision added 1 capsule p.o. b.i.d. 7. Accupril 20 mg p.o. b.i.d. 8. Aspirin 81 mg p.o. at bedtime. 9. Lipitor 40 mg p.o. q.h.s. FOLLOW UP: Follow up with Dr. Hedy Thompson on July 26, 2018. Follow up with Dr. Omar Luque in [address] Luque. MMODL / IJN: [id number] /
== END 2018-07-23 13:48 | disposition home or self-care (01) ==
LOC: EC 13:22 → 1SOBS 14:44 → 3SCARD 07-22 18:08
PROVIDERS: ADMIT Hospitalist; ATTEND Hospitalist
DX: I25.110 Atherosclerotic heart disease of native coronary artery with unstable angina pectoris (principal); E66.9 Obesity, unspecified; Z68.32 Body mass index [BMI] 32.0-32.9, adult; K21.9 Gastro-esophageal reflux disease without esophagitis; H35.30 Unspecified macular degeneration; E78.5 Hyperlipidemia, unspecified; H57.9 Unspecified disorder of eye and adnexa; I11.9 Hypertensive heart disease without heart failure; Z86.79 Personal history of other diseases of the circulatory system; Z85.89 Personal history of malignant neoplasm of other organs and systems; Z85.118 Personal history of other malignant neoplasm of bronchus and lung; Z98.42 Cataract extraction status, left eye; Z98.41 Cataract extraction status, right eye; Z96.1 Presence of intraocular lens; Z79.82 Long term (current) use of aspirin; Z79.899 Other long term (current) drug therapy; Z79.02 Long term (current) use of antithrombotics/antiplatelets; Z87.891 Personal history of nicotine dependence; Z80.3 Family history of malignant neoplasm of breast; Z82.49 Family history of ischemic heart disease and other diseases of the circulatory system
CPT/HCPCS: 96366 ×3; 96376; 96365; 99291; 36415; 93005; 93458; 80053; 80048; 83735; 84484 ×2; 85025 ×3; 85610; 85730 ×2; 71046; G0378 ×3; C8929; C9600 ×2; C1887 ×2; C1769 ×3; C1725; C1874; C1894; J1644 ×2; J2001; J1170; J0583; Q9967 ×2; J2250; 93306

== ENCOUNTER 2018-12-27 19:04 | Emergency (ER) | payer MEDICARE ==
[2018-12-27 19:28] VITALS: RESP 18; TEMP 98.3
[2018-12-27] MEDS ORDERED: SODIUM CHLORIDE 0.9% 1,000 ML IV STA (20:08)
--- NOTE | 2018-12-27 20:14 | ED ---
Neuro HPI - General Chief Complaint: Neuro Symptoms/Deficit Stated Complaint: LT foot numbness Time Seen by Provider: 12/27/18 19:40 Source: patient, RN notes reviewed, old records reviewed Mode of arrival: ambulatory Limitations: no limitations - History of Present Illness Is the patient presenting with stroke symptoms?: No -: hour(s) Initial Comments: This is a 68-year-old male the ER today. Presents today from home for evaluation regards to left leg feeling of heaviness or feeling of left foot be ing asleep. Patient presents with multiple other concerns he does have recent history of 3 stents placed in his heart tenderness and increasing chest pain as of late he originally related to chest pain to a fall that he has been now is maybe not so sure he also has history of stents in his abdominal aorta and is concerned that for evaluation secondary to his leg numbness and tingling. Otherwise patient is currently asymptomatic no chest pain currently no shortness of breath currently does complain of left leg heaviness Location: left leg (Left foot) Place: home Severity: mild Quality: numb, tingling Improves With: none Worsens With: none On Anticoagulants: Yes Context: gradual onset Associated Symptoms: denies other symptoms, other (Patient does admit to occasional chest pain, no current chest pain) Treatments Prior to Arrival: none - Related Data Home Medications: Home Medications Medication Instructions Recorded Confirmed Isosorbide Mononitrate ER [Imdur] 30 mg PO DAILY 04/29/15 12/27/18 Metoprolol Succinate (ER) [Toprol 100 mg PO QAM 04/29/15 12/27/18 XL] amLODIPine [Norvasc] 5 mg PO BID 04/29/15 12/27/18 Vit C/E/Zn/Coppr/Lutein/Zeaxan 1 cap PO BID 05/03/15 12/27/18 [Preservision Areds 2 Softgel] Quinapril HCl [Accupril] 20 mg PO BID 07/21/18 12/27/18 Atorvastatin [Lipitor] 80 mg PO HS 12/27/18 12/27/18 Vitamin B Complex 1 cap PO DAILY 12/27/18 12/27/18 Previous Rx's Medication Instructions Recorded Clopidogrel [Plavix] 75 mg PO DAILY #90 tab 05/01/15 Nitroglycerin Sl Tabs [Nitrostat] 0.4 mg SUBLINGUAL Q5M PRN #25 tab 05/01/15 Aspirin 81 mg PO HS chew 07/23/18 Allergies/Adverse Reactions: Allergies Allergy/AdvReac Type Severity Reaction Status Date / Time No Known Allergies Allergy Verified 12/27/18 20:07 Review of Systems ROS Statement: Those systems with pertinent positive or pertinent negative responses have been documented in the HPI. ROS Other: All systems not noted in ROS Statement are negative. General Exam Limitations: no limitations General appearance: alert, in no apparent distress Head exam: Present: atraumatic, normocephalic, normal inspection Eye exam: Present: normal appearance, PERRL, EOMI. Absent: scleral icterus, conjunctival injection, periorbital swelling ENT exam: Present: normal exam, mucous membranes moist Neck exam: Present: normal inspection. Absent: tenderness, meningismus, lymphadenopathy Respiratory exam: Present: normal lung sounds bilaterally. Absent: respiratory distress, wheezes, rales, rhonchi, stridor Cardiovascular Exam: Present: regular rate, normal rhythm, normal heart sounds. Absent: systolic murmur, diastolic murmur, rubs, gallop, clicks GI/Abdominal exam: Present: soft, normal bowel sounds. Absent: distended, tenderness, guarding, rebound, rigid Extremities exam: Present: normal inspection, full ROM, normal capillary refill, other (Left foot Dorsalis pedis posterior tibialis pulses 2+. Capillary refill less than 2 foot is warm). Absent: tenderness, pedal edema, joint swelling, calf tenderness Back exam: Present: normal inspection Neurological exam: Present: alert, oriented X3, CN II-XII intact Psychiatric exam: Present: normal affect, normal mood Skin exam: Present: warm, dry, intact, normal color. Absent: rash Stroke MDM - Lab Data Result diagrams: 12/27/18 20:37 Lab Results 12/27/18 12/27/18 12/27/18 Range/Units 20:37 20:37 20:37 WBC 9.0 (3.8-10.6) k/uL RBC 4.82 (4.30-5.90) m/uL Hgb 14.5 (13.0-17.5) gm/dL Hct 42.4 (39.0-53.0) % MCV 87.9 (80.0-100.0) fL MCH 30.0 (25.0-35.0) pg MCHC 34.1 (31.0-37.0) g/dL RDW 14.0 (11.5-15.5) % Plt Count 194 (150-450) k/uL Neutrophils % 70 % Lymphocytes % 17 % Monocytes % 7 % Eosinophils % 3 % Basophils % 1 % Neutrophils # 6.3 (1.3-7.7) k/uL Lymphocytes # 1.6 (1.0-4.8) k/uL Monocytes # 0.6 (0-1.0) k/uL Eosinophils # 0.3 (0-0.7) k/uL Basophils # 0.1 (0-0.2) k/uL PT 9.4 (9.0-12.0) sec INR 0.8 (<1.2) APTT 22.5 (22.0-30.0) sec Troponin I <0.012 (0.000-0.034) ng/mL - NIH Stroke Scale 1a. Level of Consciousness: (0) alert 1b. LOC Questions: (0) answers correctly 1c. LOC Commands: (0) performs tasks correctly 2. Best Gaze: (0) normal 3. Visual: (0) no visual loss 4. Facial Palsy: (0) normal symmetrical movement 5a. Motor Arm Left: (0) no drift 5b. Motor Arm Right: (0) no drift 6a. Motor Leg Left: (0) no drift 6b. Motor Leg Right: (0) no drift 7. Limb Ataxia: (0) absent 8. Sensory: (0) normal 9. Best Language: (0) no aphasia 10. Dysarthria: (0) normal 11. Extinction/Inattention: (0) no abnormality - Medical Decision Making 68 male the ER with no neurological findings of significant findings found here in the emergency room. Troponin is negative with no evidence of heart damage from EKG is negative. Patient can be discharged home - EKG Data -: EKG Interpreted by Me (EKG shows sinus of Valsalva, [place] 174, QRS 90, QTc 436) Past Medical History Past Medical History: Coronary Artery Disease (CAD), Cancer, Chest Pain / Angina, Eye Disorder, GERD/Reflux, Hyperlipidemia, Hypertension Additional Past Medical History / Comment(s): R lung cancer with surgery in 2010, aortic aneurysm with surgery 2010, bilateral macular dege neration/bilateral retinal bleeds-gets eye injections q 5 weeks. History of Any Multi-Drug Resistant Organisms: None Reported Past Surgical History: Heart Catheterization, Heart Catheterization With Stent Additional Past Surgical History / Comment(s): 05/01/15 PCI with stent to mid RCA radial approach, 2010 RIGHT UPPER LOBECTOMY, 2010 AORTIC ANEURYSM REPAIR- WITH STENT, PTCA x 3 vessels in 1990, bilateral cartaract removal with lens implants, COLONOSCOPY. Past Anesthesia/Blood Transfusion Reactions: No Reported Reaction Date of Last Stent Placement:: 05/01/15 Past Psychological History: No Psychological Hx Reported Smoking Status: Former smoker - Past Family History Mother Family Medical History: Cancer, Myocardial Infarction ([place]) Additional Family Medical History / Comment(s): BREAST CANCER. Mother at age 78 yrs of a [place] Father Family Medical History: Cancer, Prostate Disorder Additional Family Medical History / Comment(s): Father had prostate problems- possibly cancer of prostate and/or colon. He at age 65 yrs. Course Vital Signs 12/27/18 12/27/18 19:25 19:45 Temperature 98.3 F Pulse Rate 81 77 Respiratory 18 18 Rate Blood Pressure 156/83 159/95 O2 Sat by Pulse 97 98 Oximetry - Reevaluation(s) Reevaluation #1: 12/27/18 20:14 Medical record os revoewed Reevaluation #2: 12/27/18 21:22 Patient still with mild nonspecific symptoms left foot left leg Disposition Clinical Impression: Paresthesia of left foot Disposition: HOME SELF-CARE Condition: Good Instructions (If sedation given, give patient instructions): Paresthesia (ED) Is patient prescribed a controlled substance at d/c from ED?: No Referrals: Omar Luque MD [Primary Care Provider] - 1-2 days
[2018-12-27 20:55] LABS: Basophils # (A) 0.1 k/uL (0-0.2); Basophils % (A) 1 %; Eosinophils # (A) 0.3 k/uL (0-0.7); Eosinophils % (A) 3 %; HCT 42.4 % (39.0-53.0); HGB 14.5 gm/dL (13.0-17.5); Lymphocytes # (A) 1.6 k/uL (1.0-4.8); Lymphocytes % (A) 17 %; MCHC 34.1 g/dL (31.0-37.0); MCV 87.9 fL (80.0-100.0); Mean Platelet Volume 5.8; Monocytes # (A) 0.6 k/uL (0-1.0); Monocytes % (A) 7 %; Neutrophils # (A) 6.3 k/uL (1.3-7.7); Neutrophils % (A) 70 %; Platelet Count 194 k/uL (150-450); RBC 4.82 m/uL (4.30-5.90)
[2018-12-27 21:09] LABS: INR 0.8 (<1.2); Partial Thromboplastin Time 22.5 sec (22.0-30.0); Prothrombin Time 9.4 sec (9.0-12.0)
[2018-12-27 21:29] LABS: ALT 42 U/L (21-72); AST 30 U/L (17-59); African American GFR (CKD) >90 (>60 ml/min/1.73 sqM); Albumin 4.4 g/dL (3.5-5.0); Alkaline Phosphatase 126 U/L (38-126); Anion Gap 8 mmol/L; Blood Urea Nitrogen 13 mg/dL (9-20); Carbon Dioxide 27 mmol/L (22-30); Chloride 106 mmol/L (98-107); Glucose 117 mg/dL (74-99); Magnesium 2.4 mg/dL (1.6-2.3); Phosphorus 3.2 mg/dL (2.5-4.5); Potassium 4.5 mmol/L (3.5-5.1); Sodium 141 mmol/L (137-145); Total Bilirubin 0.5 mg/dL (0.2-1.3); Total Protein 7.5 g/dL (6.3-8.2)
[2018-12-27 21:52] VITALS: BP 154/73; PULSE 72
== END 2018-12-27 21:55 | disposition home or self-care (01) ==
LOC: EC 19:04
DX: R20.2 Paresthesia of skin (principal); R20.0 Anesthesia of skin; I25.119 Atherosclerotic heart disease of native coronary artery with unspecified angina pectoris; E78.5 Hyperlipidemia, unspecified; I10 Essential (primary) hypertension; K21.9 Gastro-esophageal reflux disease without esophagitis; Z79.899 Other long term (current) drug therapy; Z87.891 Personal history of nicotine dependence; Z95.5 Presence of coronary angioplasty implant and graft; Z85.118 Personal history of other malignant neoplasm of bronchus and lung
CPT/HCPCS: 36415; 80053; 83735; 84100; 84484; 85025; 85610; 85730; 93005; 96360; 99284

== ENCOUNTER 2019-01-15 17:34 | Observation (INO) | payer MEDICARE ==
[2019-01-15] MEDS ORDERED: HEPARIN SODIUM,PORCINE 5,000 UNIT/ML 1 ML VIAL IV PRN (18:24)
[2019-01-15] MEDS ORDERED: NITROGLYCERIN-D5W PMX 50 MG in DEXTROSE/WATER 1 250ML.BAG IV STA (18:24)
[2019-01-15] MEDS ORDERED: HEPARIN SODIUM,PORCINE 5,000 UNIT/ML 1 ML VIAL IV ONE (18:24)
--- NOTE | 2019-01-15 18:42 | ED ---
Chest Pain HPI - General Chief Complaint: Chest Pain Stated Complaint: Chest pain Time Seen by Provider: 01/15/19 17:40 Source: patient Mode of arrival: ambulatory Limitations: no limitations - History of Present Illness Initial Comments: The patient is a 69-year-old male who is a transfer from [facility] for chest pain. Does have a history of coronary disease. States that he had one stent placement 2 years ago. Then in July he had an additional [address] Thompson. States that he has had intermittent chest pain over the past 2 weeks. Today the chest pain started suddenly and was severe. He describes it as a squeezing sensation in the middle of his chest. States that the pain is similar from when he did have his NC in July. He took 2 nitros which did help his symptoms. He went into [facility]. Troponins were negative. This did start him on nitro and heparin drip. He recommended transfer to our facility for unstable angina. The patient did agree. He does arrive and states that his pain is only 2 out of 10. No chest pain or shortness of breath. Denies cough or hemoptysis. No ripping or tearing sensation to his back. There are no other alleviating, precipitating or modifying factors - Related Data Home Medications Medication Instructions Recorded Confirmed Isosorbide Mononitrate ER [Imdur] 30 mg PO BID 04/29/15 01/15/19 Metoprolol Succinate (ER) [Toprol 100 mg PO QAM 04/29/15 01/15/19 XL] amLODIPine [Norvasc] 5 mg PO BID 04/29/15 01/15/19 Vit C/E/Zn/Coppr/Lutein/Zeaxan 1 cap PO BID 05/03/15 01/15/19 [Preservision Areds 2 Softgel] Atorvastatin [Lipitor] 80 mg PO DAILY 12/27/18 01/15/19 Vitamin B Complex 1 cap PO DAILY 12/27/18 01/15/19 Aspirin 81 mg PO DAILY 01/15/19 01/15/19 Multivitamins, Thera [Multivitamin 1 tab PO DAILY 01/15/19 01/15/19 (formulary)] Quinapril HCl 20 mg PO BID 01/15/19 01/15/19 Previous Rx's Medication Instructions Recorded Clopidogrel [Plavix] 75 mg PO DAILY #90 tab 05/01/15 Allergies Allergy/AdvReac Type Severity Reaction Status Date / Time No Known Allergies Allergy Verified 01/15/19 19:00 Review of Systems ROS Statement: Those systems with pertinent positive or pertinent negative responses have been documented in the HPI. ROS Other: All systems not noted in ROS Statement are negative. EKG Findings - EKG Comments: EKG Findings:: EKG demonstrates normal sinus rhythm with a ventricular rate of 71. NC interval 174. QRS 86. QTC 445. There are no acute ST segment eleva tions or depressions concerning for ischemic changes Past Medical History Past Medical History: Coronary Artery Disease (CAD), Cancer, Chest Pain / Angina, Eye Disorder, GERD/Reflux, Hyperlipidemia, Hypertension Additional Past Medical History / Comment(s): R lung cancer with surgery in 2010, aortic aneurysm with surgery 2010, bilateral macular degeneration/bilateral retinal bleeds-gets eye injections q 5 weeks. History of Any Multi-Drug Resistant Organisms: None Reported Past Surgical History: Heart Catheterization, Heart Catheterization With Stent Additional Past Surgical History / Comment(s): 05/01/15 PCI with stent to mid RCA radial approach, 2010 RIGHT UPPER LOBECTOMY, 2010 AORTIC ANEURYSM REPAIR- WITH STENT, PTCA x 3 vessels in 1990, bilateral cartaract removal with lens implants, COLONOSCOPY. Past Anesthesia/Blood Transfusion Reactions: No Reported Reaction Date of Last Stent Placement:: 05/01/15 Past Psychological History: No Psychological Hx Reported Smoking Status: Former smoker Past Alcohol Use History: Occasional Past Drug Use History: None Reported - Past Family History Mother Family Medical History: Cancer, Myocardial Infarction ([place]) Additional Family Medical History / Comment(s): BREAST CANCER. Mother at age 78 yrs of a [place] Father Family Medical History: Cancer, Prostate Disorder Additional Family Medical History / Comment(s): Father had prostate problems- possibly cancer of prostate and/or colon. He at age 65 yrs. General Exam Limitations: no limitations General appearance: alert, in no apparent distress Head exam: Present: atraumatic, normocephalic, normal inspection Eye exam: Present: normal appearance, PERRL, EOMI. Absent: scleral icterus, conjunctival injection, periorbital swelling ENT exam: Present: normal exam, mucous membranes moist Neck exam: Present: normal inspection. Absent: tenderness, meningismus, lymphadenopathy Respiratory exam: Present: normal lung sounds bilaterally. Absent: respiratory distress, wheezes, rales, rhonchi, stridor Cardiovascular Exam: Present: regular rate, normal rhythm, normal heart sounds. Absent: systolic murmur, diastolic murmur, rubs, gallop, clicks GI/Abdominal exam: Present: soft, normal bowel sounds. Absent: distended, tenderness, guarding, rebound, rigid Extremities exam: Present: normal inspection, full ROM, normal capillary refill. Absent: tenderness, pedal edema, joint swelling, calf tenderness Back exam: Present: normal inspection Neurological exam: Present: alert, oriented X3, CN II-XII intact Psychiatric exam: Present: normal affect, normal mood Skin exam: Present: warm, dry, intact, normal color. Absent: rash Course Vital Signs 01/15/19 01/15/19 17:37 19:48 Temperature 98.3 F Pulse Rate 71 78 Respiratory 18 20 Rate Blood Pressure 155/91 O2 Sat by Pulse 97 95 Oximetry Chest Pain MDM - MDM On arrival patient is placed into trauma bay 1. A thorough history and physical exam is performed. We did repeat a 12-lead EKG. Patient does arrive on a nitro and heparin drip. I did continue these medications. I reviewed the patient's chart. Laboratory studies were normal. I did order a repeat troponin. Chest x-ray is uploaded. I called and discussed the case with Dr. Pugh who accepted admission. I will place cardiology on consult. Patient remained in stable condition and was transported to the floor Disposition Clinical Impression: Unstable angina pectoris, Chest pain Disposition: ADMITTED IP TO THIS HOSP Condition: Serious Is patient prescribed a controlled substance at d/c from ED?: No Decision to Admit Reason: Admit from EC Decision Date: 01/15/19 Decision Time: 18:52
[2019-01-15] MEDS ORDERED: NALOXONE 0.4 MG/ML 1 ML VIAL IV PRN (18:53)
[2019-01-15 19:30] LABS: ALT 43 U/L (21-72); AST 30 U/L (17-59); African American GFR (CKD) >90 (>60 ml/min/1.73 sqM); Albumin 4.2 g/dL (3.5-5.0); Alkaline Phosphatase 116 U/L (38-126); Anion Gap 9 mmol/L; Blood Urea Nitrogen 13 mg/dL (9-20); Calcium 9.2 mg/dL (8.4-10.2); Carbon Dioxide 26 mmol/L (22-30); Chloride 108 mmol/L (98-107); Glucose 92 mg/dL (74-99); Non-African American GFR(CKD) >90 (>60 ml/min/1.73 sqM); Potassium 4.2 mmol/L (3.5-5.1); Sodium 143 mmol/L (137-145); Total Bilirubin 0.7 mg/dL (0.2-1.3); Total Protein 7.1 g/dL (6.3-8.2)
[2019-01-15] MEDS: HEPARIN SOD,PORK IN 0.45% NACL 25,000 UNIT in 0.45% NACL 1 250ML.BAG IV SCH (19:35)
[2019-01-15 19:39] LABS: Basophils % (A) 0 %; Eosinophils # (A) 0.3 k/uL (0-0.7); Eosinophils % (A) 4 %; HCT 42.1 % (39.0-53.0); HGB 14.2 gm/dL (13.0-17.5); Lymphocytes % (A) 26 %; MCH 30.1 pg (25.0-35.0); MCHC 33.9 g/dL (31.0-37.0); MCV 88.9 fL (80.0-100.0); Mean Platelet Volume 6.3; Monocytes # (A) 0.5 k/uL (0-1.0); Monocytes % (A) 6 %; Neutrophils # (A) 4.7 k/uL (1.3-7.7); Neutrophils % (A) 61 %; Platelet Count 191 k/uL (150-450); RBC 4.73 m/uL (4.30-5.90); RDW 13.8 % (11.5-15.5); WBC 7.8 k/uL (3.8-10.6)
[2019-01-15] MEDS ORDERED: LISINOPRIL 20 MG TAB PO SCH (21:30)
[2019-01-15] MEDS: ATORVASTATIN 80 MG TAB PO SCH (21:36)
[2019-01-15] MEDS: amLODIPine 5 MG TAB PO SCH (21:36)
[2019-01-15 21:54] VITALS: BMI 35.1
[2019-01-16 06:28] LABS: Basophils % (A) 1 %; Eosinophils # (A) 0.2 k/uL (0-0.7); Eosinophils % (A) 3 %; HCT 40.1 % (39.0-53.0); HGB 13.4 gm/dL (13.0-17.5); Lymphocytes # (A) 1.3 k/uL (1.0-4.8); Lymphocytes % (A) 18 %; MCH 30.1 pg (25.0-35.0); MCHC 33.3 g/dL (31.0-37.0); MCV 90.3 fL (80.0-100.0); Mean Platelet Volume 6.1; Monocytes # (A) 0.4 k/uL (0-1.0); Monocytes % (A) 6 %; Neutrophils # (A) 4.8 k/uL (1.3-7.7); Neutrophils % (A) 70 %; Platelet Count 181 k/uL (150-450); RBC 4.44 m/uL (4.30-5.90); RDW 13.8 % (11.5-15.5); WBC 6.9 k/uL (3.8-10.6)
[2019-01-16 06:47] LABS: INR 0.9 (<1.2); Prothrombin Time 10.1 sec (9.0-12.0)
--- NOTE | 2019-01-16 07:37 | P.HPIM ---
History of Present Illness This is a pleasant 7 years old male with past medical history of coronary artery disease, GERD, hyperlipidemia, hypertension, right lung cancer status post surgery in 2010, aortic aneurysm status post surgery in 2010, bilateral macular degeneration. He status post cardiac cath on 07/22/2018 and stent placement of his right coronary artery and circumflex artery This time patient presents with worsening chest pain. Patient was working on his computer yesterday when he started to have sharp central chest pain, patient states his chest pain is similar to last July when he had the cardiac cath and stent, his chest pain is nonradiating about 9/10 in severity that is relieved partially by nitroglycerin, however it recurs shortly and patient decided to come to the hospital. First he went to [facility], and upon con tacting his phys therapist Dr. Thompson it was advised patient to be transferred to the current [facility]. Patient chest pain has proceeded with several episodes of chest tightness through the week when he was playing with his grand- kids and in the garden Currently patient sitting on the side of the bed not in distress, chest pain is well to now at 1/10, while currently he is on heparin and nitro drip Vitals are stable, his blood pressure was slightly elevated on admission like 159/80, currently is 120/66. showing unremarkable CBC, BMP and liver enzymes. Troponins 2 are negative. EKG showing normal sinus rhythm at [address]-T changes with possible LVH and QTC of 445. On admission patient was started on heparin drip and nitroglycerin drip Review of Systems CONSTITUTIONAL: No fever, no malaise, no fatigue. HEENT: No recent visual problems or hearing problems. Denied any sore throat. CARDIOVASCULAR: No orthopnea, PND, no palpitations, no syncope. PULMONARY: no hemoptysis. GASTROINTESTINAL: No diarrhea, no nausea, no vomiting, no abdominal pain. Normoactive bowel sounds. NEUROLOGICAL: No headaches, no weakness, no numbness. HEMATOLOGICAL: Denies any bleeding or petechiae. GENITOURINARY: Denies any burning micturition, frequency, or urgency. MUSCULOSKELETAL/RHEUMATOLOGICAL: Denies any joint pain, swelling, or any muscle pain. ENDOCRINE: Denies any polyuria or polydipsia. Past Medical History Past Medical History: Coronary Artery Disease (CAD), Cancer, Chest Pain / Angina, Eye Disorder, GERD/Reflux, Hyperlipidemia, Hypertension Additional Past Medical History / Comment(s): R lung cancer with surgery in 2010, aortic aneurysm with surgery 2010, bilateral macular degeneration/bilateral retinal bleeds-gets eye injections q 5 weeks. History of Any Multi-Drug Resistant Organisms: None Reported Past Surgical History: Heart Catheterization, Heart Catheterization With Stent Additional Past Surgical History / Comment(s): 05/01/15 PCI with stent to mid RCA radial approach, 2010 RIGHT UPPER LOBECTOMY, 2010 AORTIC ANEURYSM REPAIR- WITH STENT, PTCA x 3 vessels in 1990, bilateral cartaract removal with lens implants, COLONOSCOPY. Past Anesthesia/Blood Transfusion Reactions: No Reported Reaction Date of Last Stent Placement:: 05/01/15 Past Psychological History: No Psychological Hx Reported Smoking Status: Former smoker Past Alcohol Use History: Occasional Past Drug Use History: None Reported - Past Family History Mother Family Medical History: Cancer, Myocardial Infarction ([place]) Additional Family Medical History / Comment(s): BREAST CANCER. Mother at age 78 yrs of a [place] Father Family Medical History: Cancer, Prostate Disorder Additional Family Medical History / Comment(s): Father had prostate problems- possibly cancer of prostate and/or colon. He at age 65 yrs. Medications and Allergies Home Medications Medication Instructions Recorded Confirmed Type Isosorbide Mononitrate ER [Imdur] 30 mg PO BID 04/29/15 01/15/19 History Metoprolol Succinate (ER) [Toprol 100 mg PO QAM 04/29/15 01/15/19 History XL] amLODIPine [Norvasc] 5 mg PO BID 04/29/15 01/15/19 History Clopidogrel [Plavix] 75 mg PO DAILY #90 tab 05/01/15 01/15/19 Rx Vit C/E/Zn/Coppr/Lutein/Zeaxan 1 cap PO BID 05/03/15 01/15/19 History [Preservision Areds 2 Softgel] Atorvastatin [Lipitor] 80 mg PO DAILY 12/27/18 01/15/19 History Vitamin B Complex 1 cap PO DAILY 12/27/18 01/15/19 History Aspirin 81 mg PO DAILY 01/15/19 01/15/19 History Multivitamins, Thera [Multivitamin 1 tab PO DAILY 01/15/19 01/15/19 History (formulary)] Quinapril HCl 20 mg PO BID 01/15/19 01/15/19 History Allergies Allergy/AdvReac Type Severity Reaction Status Date / Time No Known Allergies Allergy Verified 01/15/19 19:00 Physical Exam Vitals: Vital Signs Temp Pulse Pulse Resp BP BP Pulse Ox 01/16/19 03:15 98.2 F 67 16 120/66 95 01/15/19 23:15 98.5 F 78 16 136/69 96 01/15/19 21:00 98.6 F 80 16 159/80 96 01/15/19 19:48 78 20 155/91 95 01/15/19 17:37 98.3 F 71 18 97 Intake and Output 01/15/19 01/15/19 01/16/19 14:59 22:59 06:59 Intake Total 3.333 49.715 Balance 3.333 49.715 Intake: Intake, IV Titration 3.333 49.715 Amount Heparin Sod,Pork in 0.45% 3.333 49.715 NaCl 25,000 unit In 0.45 % NaCl 1 250ml.bag @ 9. 271 UNITS/KG/HR 10 mls/hr IV .Q24H [facility] Rx#: [id number] Other: Weight 107.864 kg 99.2 kg GENERAL: The patient is alert and oriented x3, not in any acute distress. Well developed, well nourished. HEENT: Pupils are round and equally reacting to light. EOMI. No scleral icterus. No conjunctival pallor. Normocephalic, atraumatic. No pharyngeal erythema. No thyromegaly. CARDIOVASCULAR: S1 and S2 present. No murmurs, rubs, or gallops. PULMONARY: Chest is clear to auscultation, no wheezing or crackles. ABDOMEN: Soft, nontender, nondistended, normoactive bowel sounds. No palpable organomegaly. MUSCULOSKELETAL: No joint swelling or deformity. EXTREMITIES: No cyanosis, clubbing, or pedal edema. NEUROLOGICAL: Gross neurological examination did not reveal any focal deficits. SKIN: No rashes. No petechiae Results CBC & Chem 7: 01/16/19 05:23 01/15/19 17:44 Labs: Abnormal Lab Results - Last 24 Hours (Table) 01/15/19 01/15/19 01/16/19 Range/Units 17:44 17:44 03:19 APTT 145.8 H* 30.9 H (22.0-30.0) sec Chloride 108 H (98-107) mmol/L Thrombosis Risk Factor Assmnt - Choose All That Apply Any of the Below Risk Factors Present?: Yes Each Factor Represents 1 point: Obesity (BMI >25) Each Risk Factor Represents 2 Points: Age 61-74 years Thrombosis Risk Factor Assessment Total Risk Factor Score: 3 Thrombosis Risk Factor Assessment Level: Moderate Risk Assessment and Plan Assessment: Chest pain, concerning for unstable angina. In view of recent history of [address] artery disease and [address] in the heart on 07/2018 Hypertension Hyperlipidemia GERD History of right lung cancer status post surgeon 2010 History of aortic aneurysm status post surgery in 2010 Bilateral macular degeneration Plan: This is a pleasant 69 years old male who presents because of chest pains concerning for unstable angina. Follow-up serial troponin, phys therapist evaluation. Continue with heparin drip to evaluated by phys therapist. Continue with M Celeste, metoprolol, aspirin and Plavix. Labs and medication were reviewed.. Continue same treatment. Continue with symptomatic treatment. Resume home medication. Monitor lytes and vitals. DVT and GI prophylaxis. Further recommendations of the clinical course of the patient DVT prophylaxis: heparin GI Prophylaxis: Pepcid PT/OT: Pending Prognosis is guarded
--- NOTE | 2019-01-16 08:27 | P.CRDCN ---
History of Present Illness Consult date: 01/16/19 Requesting physician: Jacki Ramirez Consult reason: chest pain Chief complaint: Chest pain History of present illness: This is a 69-year-old gentleman who follows regularly with Dr. Cynthia Thompson in the office. He has a known history of coronary artery disease with prior stenting, most recently patient was in the hospital in July underwent 3 stent placements at that time, proximal RCA and proximal and mid circumflex at that time. Prior to that patient did have history of previous RCA stenting. History of hypertension, hyperlipidemia, abdominal aortic aneurysm status post endograft repair, prior nicotine dependence. He presented to the hospital on this occasion with symptoms of chest discomfort. According to the patient, on Wednesday of last week he was out raking his leads and had an episode of chest tightness, he went into the house and the symptoms subsided, he again had similar symptoms on Wednesday. Yesterday the patient states he was sitting at his computer and had an episode of sharp chest discomfort he took a nitroglycerin and the symptoms subsided, shortly thereafter the symptoms returned, he took a second nitroglycerin, it took care of the sharp pain but he states he had a pain that radiated across the chest, with the remaining pressure after that. He presented to [facility] and subsequently was transferred here for further evaluation and treatment. His EKG performed there showed a normal sinus rhythm with no acute changes. Lab data performed at [facility], white blood cell count 6.8, hemoglobin 13.7, platelet count 167. BUN 13, creatinine 0.7, sodium 141, potassium 4.0, troponin was negative chest x-ray showed borderline cardiomegaly with possible developing infiltrate in the right lung base. EKG on arrival here showed a normal sinus rhythm with nonspecific ST-T wave changes. I pressure 120/60 with a heart rate in the 60s, afebrile. White blood cell count 6.9, hemoglobin 13, platelet count 181. Sodium 143, potassium 4.2, BUN 13 and creatinine 0.7. Opponents are negative 3. Magnesium 2.4. Patient had an echocardiogram with Doppler study performed in July revealed a normal ejection fraction. At the time of my examination this morning, patient is currently chest pain-free. He is on IV heparin and nitroglycerin drips. Past Medical History Past Medical History: Coronary Artery Disease (CAD), Cancer, Chest Pain / Angina, Eye Disorder, GERD/Reflux, Hyperlipidemia, Hypertension Additional Past Medical History / Comment(s): R lung cancer with surgery in 2010, aortic aneurysm with surgery 2010, bilateral macular degeneration/bilateral retinal bleeds-gets eye injections q 5 weeks. History of Any Multi-Drug Resistant Organisms: None Reported Past Surgical History: Heart Catheterization, Heart Catheterization With Stent Additional Past Surgical History / Comment(s): 05/01/15 PCI with stent to mid RCA radial approach, 2010 RIGHT UPPER LOBECTOMY, 2010 AORTIC ANEURYSM REPAIR- WITH STENT, PTCA x 3 vessels in 1990, bilateral cartaract removal with lens implants, COLONOSCOPY. Past Anesthesia/Blood Transfusion Reactions: No Reported Reaction Date of Last Stent Placement:: 05/01/15 Past Psychological History: No Psychological Hx Reported Smoking Status: Former smoker Past Alcohol Use History: Occasional Past Drug Use History: None Reported - Past Family History Mother Family Medical History: Cancer, Myocardial Infarction ([place]) Additional Family Medical History / Comment(s): BREAST CANCER. Mother at age 78 yrs of a [place] Father Family Medical History: Cancer, Prostate Disorder Additional Family Medical History / Comment(s): Father had prostate problems- possibly cancer of prostate and/or colon. He at age 65 yrs. Medications and Allergies Home Medications Medication Instructions Recorded Confirmed Type Isosorbide Mononitrate ER [Imdur] 30 mg PO BID 04/29/15 01/15/19 History Metoprolol Succinate (ER) [Toprol 100 mg PO QAM 04/29/15 01/15/19 History XL] amLODIPine [Norvasc] 5 mg PO BID 04/29/15 01/15/19 History Clopidogrel [Plavix] 75 mg PO DAILY #90 tab 05/01/15 01/15/19 Rx Vit C/E/Zn/Coppr/Lutein/Zeaxan 1 cap PO BID 05/03/15 01/15/19 History [Preservision Areds 2 Softgel] Atorvastatin [Lipitor] 80 mg PO DAILY 12/27/18 01/15/19 History Vitamin B Complex 1 cap PO DAILY 12/27/18 01/15/19 History Aspirin 81 mg PO DAILY 01/15/19 01/15/19 History Multivitamins, Thera [Multivitamin 1 tab PO DAILY 01/15/19 01/15/19 History (formulary)] Quinapril HCl 20 mg PO BID 01/15/19 01/15/19 History Allergies Allergy/AdvReac Type Severity Reaction Status Date / Time No Known Allergies Allergy Verified 01/15/19 19:00 Physical Exam Vitals: Vital Signs Temp Pulse Pulse Resp BP BP Pulse Ox 01/16/19 03:15 98.2 F 67 16 120/66 95 01/15/19 23:15 98.5 F 78 16 136/69 96 01/15/19 21:00 98.6 F 80 16 159/80 96 01/15/19 19:48 78 20 155/91 95 01/15/19 17:37 98.3 F 71 18 97 Intake and Output 01/15/19 01/16/19 01/16/19 22:59 06:59 14:59 Intake Total 3.333 49.715 Balance 3.333 49.715 Intake: Intake, IV Titration 3.333 49.715 Amount Heparin Sod,Pork in 0.45% 3.333 49.715 NaCl 25,000 unit In 0.45 % NaCl 1 250ml.bag @ 9. 271 UNITS/KG/HR 10 mls/hr IV .Q24H [facility] Rx#: [id number] Other: Weight 107.864 kg 99.2 kg PHYSICAL EXAMINATION: GENERAL: 69-year-old gentleman in no acute distress at the time of my examination HEENT: Head is atraumatic, normocephalic. Pupils equal, round. Sclera anicteric. Conjunctiva are clear. Mucous membranes of the mouth are moist. Neck is supple. There is no elevated jugular venous pressure. No carotid bruit is heard. HEART EXAMINATION: Heart S1, S2 normal. No murmur or gallop heard. CHEST EXAMINATION: Lungs are clear to auscultation and precussion. No chest wall tenderness is noted on palpation or with deep breathing. ABDOMEN: Soft, nontender. Bowel sounds are heard. No organomegaly noted. EXTREMITIES: 2+ peripheral pulses with no evidence of peripheral edema and no calf tenderness noted. NEUROLOGIC patient is awake, alert and oriented 3 . . Results 01/16/19 05:23 01/15/19 17:44 Cardiac Enzymes 01/15/19 01/15/19 01/15/19 Range/Units 17:44 17:44 23:00 AST 30 (17-59) U/L Troponin I <0.012 <0.012 (0.000-0.034) ng/mL 01/16/19 Range/Units 05:23 AST (17-59) U/L Troponin I <0.012 (0.000-0.034) ng/mL Coagulation 01/15/19 01/16/19 01/16/19 Range/Units 17:44 03:19 05:23 PT 10.1 (9.0-12.0) sec APTT 145.8 H* 30.9 H (22.0-30.0) sec CBC 01/15/19 01/16/19 Range/Units 17:44 05:23 WBC 7.8 6.9 (3.8-10.6) k/uL RBC 4.73 4.44 (4.30-5.90) m/uL Hgb 14.2 13.4 (13.0-17.5) gm/dL Hct 42.1 40.1 (39.0-53.0) % Plt Count 191 181 (150-450) k/uL Comprehensive Metabolic Panel 01/15/19 Range/Units 17:44 Sodium 143 (137-145) mmol/L Potassium 4.2 (3.5-5.1) mmol/L Chloride 108 H (98-107) mmol/L Carbon Dioxide 26 (22-30) mmol/L BUN 13 (9-20) mg/dL Creatinine 0.70 (0.66-1.25) mg/dL Glucose 92 (74-99) mg/dL Calcium 9.2 (8.4-10.2) mg/dL AST 30 (17-59) U/L ALT 43 (21-72) U/L Alkaline Phosphatase 116 (38-126) U/L Total Protein 7.1 (6.3-8.2) g/dL Albumin 4.2 (3.5-5.0) g/dL Current Medications Generic Name Dose Route Start Last Admin Trade Name Freq PRN Reason Stop Dose Admin Amlodipine Besylate 5 mg 01/15/19 21:30 01/15/19 21:36 Norvasc PO 5 mg BID [facility] Administration Aspirin 81 mg 01/16/19 09:00 Aspirin PO DAILY [facility] Atorvastatin Calcium 80 mg 01/15/19 21:30 01/15/19 21:36 Lipitor PO 80 mg HS NARESH Administration Clopidogrel Bisulfate 75 mg 01/16/19 09:00 Plavix PO DAILY [facility] Famotidine 20 mg 01/16/19 09:00 Pepcid IV Q12HR [facility] Heparin Sodium (Porcine) 0 unit 01/15/19 18:24 01/16/19 04:14 Heparin IV 4,000 unit PER PROTOCOL PRN Administration Low PTT Protocol Nitroglycerin/Dextrose 50 mg/ 250 mls @ 1.5 mls/hr 01/15/19 18:24 01/15/19 19:28 IV Solution IV 01/16/19 18:23 5 mcg/min .Q24H [facility] 1.5 mls/hr Administration Protocol 5 MCG/MIN Heparin Sodium/Sodium Chloride 250 mls @ 10 mls/hr 01/15/19 18:30 01/16/19 04:15 25,000 unit/ Sodium Chloride IV 9.271 units/kg/hr .Q24H NARESH 10 mls/hr Titration Protocol 9.271 UNITS/KG/HR Isosorbide Mononitrate 30 mg 01/16/19 09:00 Imdur PO BID [facility] Lisinopril 20 mg 01/16/19 09:00 Zestril PO BID [facility] Metoprolol Succinate 100 mg 01/16/19 09:00 Toprol Xl PO QAM [facility] Naloxone HCl 0.2 mg 01/15/19 18:53 Narcan IV Q2M PRN Opioid Reversal Intake and Output 01/15/19 01/16/19 01/16/19 22:59 06:59 14:59 Intake Total 3.333 49.715 Balance 3.333 49.715 Intake: Intake, IV Titration 3.333 49.715 Amount Heparin Sod,Pork in 0.45% 3.333 49.715 NaCl 25,000 unit In 0.45 % NaCl 1 250ml.bag @ 9. 271 UNITS/KG/HR 10 mls/hr IV .Q24H [facility] Rx#: [id number] Other: Weight 107.864 kg 99.2 kg 01/16/19 05:23 01/15/19 17:44 EKG Interpretations (text) EKG shows normal sinus rhythm with no acute changes. Assessment and Plan Plan: Assessment and plan #1 chest discomfort, suggestive of possible unstable angina. Troponins are negative 3. EKG shows normal sinus rhythm with no acute changes. #2 known history of coronary artery disease with prior stent placements, most recently in July of this year patient underwent stenting of the RCA and circumflex #3 hypertension #4 hyperlipidemia #5 prior history of smoking Plan We will continue IV heparin and nitroglycerin drip. Obtain echocardiogram with Doppler study. Patient is also been advised to undergo cardiac catheterization, the risks and the benefits were again explained to the patient in detail and he is willing to proceed. Further recommendations will be based on these findings and the patient's clinical course. DNP note has been reviewed, I agree with a documented findings and plan of care. Patient was seen and examined.
[2019-01-16] MEDS: ASPIRIN 81 MG PO SCH (09:01)
[2019-01-16] MEDS: LISINOPRIL 20 MG TAB PO SCH ×2 (09:01→21:05)
[2019-01-16] MEDS: FAMOTIDINE 20 MG/2 ML VIAL IV SCH ×2 (09:01→21:05)
[2019-01-16] MEDS: CLOPIDOGREL 75 MG TAB PO SCH (09:01)
[2019-01-16] MEDS: amLODIPine 5 MG TAB PO SCH ×2 (09:01→21:05)
[2019-01-16] MEDS: METOPROLOL SUCCINATE (ER) 100 MG TAB.ER.24H PO SCH (09:01)
[2019-01-16] MEDS: ISOSORBIDE MONONITRATE ER 30 MG TAB.ER.24H PO SCH ×2 (09:01→21:05)
[2019-01-16] MEDS ORDERED: ASPIRIN 325 MG TAB PO STA (10:42)
[2019-01-16] MEDS ORDERED: ATORVASTATIN 80 MG TAB PO STA (10:42)
[2019-01-16] MEDS ORDERED: SODIUM CHLORIDE 0.9% 1,000 ML in EMPTY BAG 1 BAG IV ONE (10:42)
[2019-01-16] MEDS ORDERED: ALPRAZolam 0.5 MG TAB PO PRN (10:42)
[2019-01-16] MEDS ORDERED: ALPRAZolam 0.25 MG TAB PO PRN (10:42)
[2019-01-16] MEDS ORDERED: NITROGLYCERIN SL TABS 0.4 MG TAB SUBLINGUAL PRN (10:42)
--- NOTE | 2019-01-16 12:32 | ECHOF ---
Referral Reason:chest pain MEASUREMENTS -------- HEIGHT: 175.3 cm WEIGHT: 98.9 kg BP: 154/88 IVSd: 1.3 cm (0.6 - 1.1) LVIDd: 4.3 cm (3.9 - 5.3) LVPWd: 1.2 cm (0.6 - 1.1) IVSs: 1.5 cm LVIDs: 3.6 cm LVPWs: 1.4 cm LA Diam: 4.3 cm (2.7 - 3.8) Ao Diam: 3.7 cm (2.0 - 3.7) AV Cusp: 1.8 cm (1.5 - 2.6) EPSS: 0.7 cm MV E Abdelrahman: 0.41 m/s MV DecT: 257 ms MV A Abdelrahman: 0.82 m/s MV E/A Ratio: 0.51 RAP: 5.00 mmHg RVSP: 27.81 mmHg MV EF SLOPE: 79.24 mm/s (70 - 150) MV EXCURSION: 22.91 mm (> 18.000) FINDINGS -------- Sinus rhythm. This was a techncally difficult study with suboptimal views, , Lumason utilized for enhancement of im ages. The left ventricular size is normal. There is mild concentric left ventricular hypertrophy. Overa ll left ventricular systolic function is normal with, an EF between 55 - 60 %. The right ventricle is normal in size. The left atrial size is normal. The right atrial size is normal. 5.0mg OF Lumason UTLIZED: 2 OR MORE WALL SEGMENTS NOT VISUALIZED. The aortic valve was not well visualized. Mild mitral regurgitation is present. Mild tricuspid regurgitation present. Right ventricular systolic pressure is normal at < 35 mmHg. There is no evidence of pulmonary hypertension. The right ventricular systolic pressure, as measur ed by Doppler, is 27.81mmHg. The pulmonic valve was not well visualized. Echo free space represents a pericardial fat pad. CONCLUSIONS -------- 1. Sinus rhythm. 2. This was a techncally difficult study with suboptimal views, , Lumason utilized for enhancement of images. 3. The left ventricular size is normal. 4. There is mild concentric left ventricular hypertrophy. 5. Overall left ventricular systolic function is normal with, an EF between 55 - 60 %. 6. The right ventricle is normal in size. 7. The left atrial size is normal. 8. The right atrial size is normal. 9. 5.0mg OF Lumason UTLIZED: 2 OR MORE WALL SEGMENTS NOT VISUALIZED. 10. The aortic valve was not well visualized. 11. Mild mitral regurgitation is present. 12. Mild tricuspid regurgitation present. 13. Right ventricular systolic pressure is normal at < 35 mmHg. 14. There is no evidence of pulmonary hypertension. 15. The pulmonic valve was not well visualized. 16. Echo free space represents a pericardial fat pad. LEGAL EXAMINER: Soheila Moreno RDCS
[2019-01-16] MEDS: HEPARIN SOD,PORK IN 0.45% NACL 25,000 UNIT in 0.45% NACL 1 250ML.BAG IV SCH (17:59)
[2019-01-16] MEDS: SODIUM CHLORIDE 0.9% 1,000 ML IV SCH (18:13)
[2019-01-16] MEDS: ATORVASTATIN 80 MG TAB PO SCH (21:05)
[2019-01-17] MEDS: ASPIRIN 81 MG PO SCH (05:14)
[2019-01-17 05:42] LABS: Basophils % (A) 0 %; Eosinophils # (A) 0.2 k/uL (0-0.7); Eosinophils % (A) 4 %; HCT 39.4 % (39.0-53.0); HGB 13.2 gm/dL (13.0-17.5); Lymphocytes # (A) 1.2 k/uL (1.0-4.8); Lymphocytes % (A) 20 %; MCH 30.1 pg (25.0-35.0); MCHC 33.4 g/dL (31.0-37.0); MCV 90.2 fL (80.0-100.0); Mean Platelet Volume 6.1; Monocytes # (A) 0.4 k/uL (0-1.0); Monocytes % (A) 6 %; Neutrophils # (A) 4.1 k/uL (1.3-7.7); Neutrophils % (A) 66 %; Platelet Count 147 k/uL (150-450); RBC 4.38 m/uL (4.30-5.90); RDW 13.8 % (11.5-15.5); WBC 6.2 k/uL (3.8-10.6)
[2019-01-17 05:49] LABS: INR 0.9 (<1.2); Prothrombin Time 9.9 sec (9.0-12.0)
[2019-01-17] MEDS: LISINOPRIL 20 MG TAB PO SCH ×2 (06:14→20:44)
[2019-01-17] MEDS: METOPROLOL SUCCINATE (ER) 100 MG TAB.ER.24H PO SCH (06:14)
[2019-01-17] MEDS: ISOSORBIDE MONONITRATE ER 30 MG TAB.ER.24H PO SCH ×2 (06:14→20:44)
[2019-01-17] MEDS: ATORVASTATIN 80 MG TAB PO SCH (06:14)
[2019-01-17] MEDS: FAMOTIDINE 20 MG/2 ML VIAL IV SCH (06:14)
[2019-01-17] MEDS: amLODIPine 5 MG TAB PO SCH ×2 (06:14→20:44)
[2019-01-17] MEDS ORDERED: SODIUM CHLORIDE 0.9% 500 ML 500 ML IV ONE (07:10)
[2019-01-17] MEDS ORDERED: LIDOCAINE 1% INJ 10MG/ML (20 ML MDV) ONE (07:34)
[2019-01-17] MEDS ORDERED: VERAPAMIL 2.5 MG/ML 2 ML AMP ONE (07:40)
[2019-01-17] MEDS ORDERED: HEPARIN SODIUM 1,000 UN/ML (10ML VL) ONE (07:41)
[2019-01-17] MEDS: MIDAZOLAM 2 MG/2 ML VIAL IV ONE ×2 (07:43→08:31)
[2019-01-17] MEDS: LIDOCAINE 1% INJ 10MG/ML (20 ML MDV) SQ ONE ×2 (07:47→08:04)
[2019-01-17] MEDS ORDERED: IOPAMIDOL-370 100ML BTL INJ ONE (08:25)
[2019-01-17] MEDS ORDERED: ADENOSINE 90 MG in SODIUM CHLORIDE 0.9% 60 ML IVP ONE ×4 (08:39)
[2019-01-17] MEDS ORDERED: HYDROmorphone 1 MG/ML 1 ML SYRINGE IVP ONE (08:42)
[2019-01-17] MEDS ORDERED: NITROGLYCERIN 1000MCG/10ML SYRINGE INTRACORON ONE (08:43)
[2019-01-17] MEDS ORDERED: IOPAMIDOL-370 125ML BTL INJ ONE (08:49)
[2019-01-17] MEDS ORDERED: RX INFO: IV CONTRAST WAS GIVEN 1 EACH MISC MISCELLANE PRN (09:08)
[2019-01-17] MEDS ORDERED: amLODIPine 5 MG TAB PO SCH (09:15)
--- NOTE | 2019-01-17 09:47 | CC ---
CARDIAC CATHETERIZATION REPORT DATE OF SERVICE: 01/17/2019 PROCEDURE: 1. Left heart catheterization and coronary angiography. 2. Fractional flow reserve assessment of left anterior descending coronary artery. PERFORMED BY: Dr. Hedy Thompson. Moderate conscious sedation time was 70 minutes. CLINICAL INFORMATION: Mr. Donovan Del Valle is a 69-year-old gentleman with a known history of abdominal aortic aneurysm, status post stent grafting, lung cancer status post surgery in the past. Since 1990, he has had coronary artery disease and I performed intervention of the circumflex initially and also of the RCA. As recently as July of this year, I performed stenting of proximal RCA and proximal circumflex before the bifurcation. Beyond the bifurcation of the circumflex, there were 2 branches, both of which had significant disease, but this was stable disease for which I did not do any intervention at this time. Sometime about 10 years ago I performed intervention of both the branches but I had a lot of difficulty and therefore I suggested medical therapy for the branch lesions in the 2 circumflex branches. He came into the hospital with symptoms suggestive of angina and had no elevation of troponin. Coronary angiography was advised. The risks, benefits, options and rationale were explained to the patient and family. PROCEDURE NOTE: Under local anesthesia and strict aseptic precautions, I attempted to get access from the right radial artery, but I had difficulty because of some scar tissue and the pulse was not as good. I switched over to the right femoral. Using a micropuncture needle technique, a 6-Montserratian introducer was placed. Coronary angiography was performed using a standard left and right Mable catheters. I noted that the circumflex and LAD came from separate origins next to each other. The LAD had a questionable ostial lesion and therefore I recommended FFR of this vessel. Using a JL4 standard guide catheter of 6- Montserratian caliber after giving intracoronary nitroglycerin and 5000 units of heparin, I performed FFR using the Verata wire. FFR was 0.81 after an infusion of adenosine and IFR was 0.88. This did not suggest a significant lesion. Therefore I advised medical therapy and I will seek an opinion regarding intervention of the circumflex branches. It appeared that the proximal RCA and proximal circumflex were patent but there was significant disease with calcification in the branches of the circumflex. Patient tolerated the procedure well without complications. An Angio-Seal device was used to secure hemostasis and he was sent to the room in a stable condition. CARDIAC CATHETERIZATION FINDINGS: The left ventricular end-diastolic pressure was 10 mmHg without any gradient across aortic valve. CORONARY ANGIOGRAPHY FINDINGS: RIGHT CORONARY ARTERY: A dominant vessel. Proximal RCA that was stented is patent. Heavy calcification distally bifurcates into PDA and PLV. The entire vessel has mild to moderate irregularities, no significant disease. PDA, however, appears to have some diffuse disease beyond the mid segment with some late filling of LCX branches distally. The right coronary opacifies in the distal circumflex branches as well. LEFT ANTERIOR DESCENDING CORONARY ARTERY: This comes from a separate origin. The ostium has at least a 40% to 50% blockage. Beyond this, the caliber of the LAD is good, has no significant disease, gives off septal and diagonal branches runs all the way to the apex. Proximal LAD and ostial LAD have what seems to be a 40% to 50% stenosis in caudal projections. This was a moderate lesion and I performed FFR of this lesion. FFR was 0.81 on 2 occasions. The IFR was 0.88. LEFT POSTERIOR CIRCUMFLEX CORONARY ARTERY: This comes off from a separate origin. Proximal circumflex and mid circumflex before the bifurcation are patent with some narrowing as the vessel gets to the bifurcation. Beyond the bifurcation, there are 2 branches, both of which have 80% stenosis, heavy calcification, but this disease is unchanged compared to the previous study from July of this year. Both are good caliber branches and are graftable. However, proximal circumflex that was stented is patent. LEFT VENTRICULOGRAM: Left ventriculogram was not performed. FINAL IMPRESSION: This patient has patent RCA at the site of stenting and patent circumflex at the site of previously stented proximal area. However, the 2 branches of the circumflex have significant disease with calcification. The LAD had a moderate ostial and proximal disease but the FFR did not reveal any hemodynamically significant lesion and FFR was 0.81 on 2 occasions. RECOMMENDATIONS: For now I am recommending medical therapy and I will seek an opinion regarding circumflex intervention for this patient or we will pursue aggressive medical therapy for the time being. I will seek a second opinion for circumflex intervention and treat him medically for the time being. The patient is at this time reluctant to have any surgery performed. I discussed my thoughts in detail with the patient and family. MMODL / IJN: [id number] / BILL
[2019-01-17] MEDS: SODIUM CHLORIDE 0.9% 1,000 ML IV SCH ×4 (09:49→20:46)
[2019-01-17] MEDS: CLOPIDOGREL 75 MG TAB PO SCH (09:49)
--- NOTE | 2019-01-17 13:48 | P.PN ---
Objective - Vital Signs Vital signs: Vital Signs Temp 97.1 F L 01/17/19 09:15 Pulse 68 01/17/19 12:00 Resp 18 01/17/19 12:00 BP 132/68 01/17/19 12:00 Pulse Ox 95 01/17/19 12:00 Intake & Output 01/16/19 01/17/19 01/17/19 18:59 06:59 18:59 Intake Total 444.167 4794 57.5 Output Total 1 Balance 357.300 2698 57.5 Weight 98.6 kg Intake: IV 57.5 Intake, IV Titration 229.333 600 Amount Heparin Sod,Pork in 0.45% 217.333 NaCl 25,000 unit In 0.45 % NaCl 1 250ml.bag @ 9. 271 UNITS/KG/HR 10 mls/hr IV .Q24H [facility] Rx#: [id number] Nitroglycerin-D5w Pmx 50 12 mg In Dextrose/Water 1 250ml.bag @ 5 MCG/MIN 1.5 mls/hr IV .Q24H [facility] Rx#: [id number] Sodium Chloride 0.9% 1, 600 000 ml @ 75 mls/hr IV . [id number] [facility] Rx#:[id number] Oral 600 942 Output: Urine 1 Other: Voiding Method Toilet # Voids 3 3 - Exam This is a pleasant 7 years old male with past medical history of coronary artery disease, GERD, hyperlipidemia, hypertension, right lung cancer status post surgery in 2010, aortic aneurysm status post surgery in 2010, bilateral macular degeneration. He status post cardiac cath on 07/22/2018 and stent placement of his right coronary artery and circumflex artery This time patient presents with worsening chest pain. Patient was working on his computer yesterday when he started to have sharp central chest pain, patient states his chest pain is similar to last July when he had the cardiac cath and stent, his chest pain is nonradiating about 9/10 in severity that is relieved partially by nitroglycerin, however it recurs shortly and patient decided to come to the hospital. First he went to [facility], and upon contacting his exhibit cleaner Dr. Thompson it was advised patient to be transferred to the current [facility]. Patient chest pain has proceeded with several episodes of chest tightness through the week when he was playing with his grand- kids and in the garden Currently patient sitting on the side of the bed not in distress, chest pain is well to now at 1/10, while currently he is on heparin and nitro drip Vitals are stable, his blood pressure was slightly elevated on admission like 159/80, currently is 120/66. showing unremarkable CBC, BMP and liver enzymes. Troponins 2 are negative. EKG showing normal sinus rhythm at [address]-T changes with possible LVH and QTC of 445. On admission patient was started on heparin drip and nitroglycerin drip 01/17/2019 Patient lying in bed with no new symptoms. He denies chest pain or dyspnea. Labs and unremarkable. EKG from today showing 71 bpm, sinus rhythm, moderate criteria for LVH may be normal variant with QTC of 445. He underwent cardiac cath showing patent stents and the RCA and circumflex artery and non-significant disease of LAD however patient has significant coronary disease in 2 branches of the circumflex artery. Restaurant Hostess recommended to optimizing medical therapy. And possible second opinion Review of systems CONSTITUTIONAL: No fever, no malaise, no fatigue. HEENT: No recent visual problems or hearing problems. Denied any sore throat. CARDIOVASCULAR: No orthopnea, PND, no palpitations, no syncope. PULMONARY: no hemoptysis. GASTROINTESTINAL: No diarrhea, no nausea, no vomiting, no abdominal pain. Normoactive bowel sounds. NEUROLOGICAL: No headaches, no weakness, no numbness. HEMATOLOGICAL: Denies any bleeding or petechiae. GENITOURINARY: Denies any burning micturition, frequency, or urgency. MUSCULOSKELETAL/RHEUMATOLOGICAL: Denies any joint pain, swelling, or any muscle pain. ENDOCRINE: Denies any polyuria or polydipsia. - Labs CBC & Chem 7: 01/17/19 05:19 01/15/19 17:44 Labs: Abnormal Lab Results - Last 24 Hours (Table) 01/15/19 01/17/19 Range/Units 17:44 05:19 Plt Count 147 L (150-450) k/uL APTT 145.8 H* (22.0-30.0) sec Assessment and Plan Assessment: Chest pain, status post cardiac cath with patent stents and 2 new lesions in 2 branches of the circumflex artery Hypertension Hyperlipidemia GERD History of right lung cancer status post surgeon 2010 History of aortic aneurysm status post surgery in 2010 Bilateral macular degeneration Plan: This is a pleasant 69 years old male who presents because of chest pains concerning for unstable angina. Patient has coronary artery disease. Cardiology team following the patient and follow the recommendation. Continue with optimizing medical disease. Wait for second opinion by exhibit cleaner. Continue with M Celeste, metoprolol, aspirin and Plavix. Labs and medication were reviewed.. Continue same treatment. Continue with symptomatic treatment. Resume home medication. Monitor lytes and vitals. DVT and GI prophylaxis. Further recommendations of the clinical course of the patient DVT prophylaxis: heparin GI Prophylaxis: Pepcid PT/OT: Pending Prognosis is guarded
[2019-01-17] MEDS: FAMOTIDINE 20 MG TAB PO SCH (20:44)
[2019-01-18] MEDS ORDERED: ACETAMINOPHEN TAB 325 MG TAB PO PRN (05:26)
[2019-01-18 06:25] LABS: INR 0.9 (<1.2); Prothrombin Time 9.9 sec (9.0-12.0)
[2019-01-18 06:26] LABS: African American GFR (CKD) >90 (>60 ml/min/1.73 sqM); Anion Gap 7 mmol/L; Blood Urea Nitrogen 12 mg/dL (9-20); Carbon Dioxide 24 mmol/L (22-30); Chloride 109 mmol/L (98-107); Glucose 102 mg/dL (74-99); Non-African American GFR(CKD) >90 (>60 ml/min/1.73 sqM); Potassium 4.1 mmol/L (3.5-5.1); Sodium 140 mmol/L (137-145)
[2019-01-18] MEDS: FAMOTIDINE 20 MG TAB PO SCH ×2 (09:40→21:17)
[2019-01-18] MEDS: CLOPIDOGREL 75 MG TAB PO SCH (09:40)
[2019-01-18] MEDS: ISOSORBIDE MONONITRATE ER 30 MG TAB.ER.24H PO SCH (09:40)
[2019-01-18] MEDS: ASPIRIN 81 MG PO SCH (09:40)
[2019-01-18] MEDS: METOPROLOL SUCCINATE (ER) 100 MG TAB.ER.24H PO SCH (09:40)
[2019-01-18] MEDS: LISINOPRIL 20 MG TAB PO SCH ×2 (09:40→21:15)
[2019-01-18] MEDS: amLODIPine 5 MG TAB PO SCH ×2 (09:40→21:17)
--- NOTE | 2019-01-18 14:28 | P.PN ---
Subjective Progress Note Date: 01/18/19 This is a 69-year-old gentleman who follows regularly with Dr. Cynthia Thompson in the office. He has a known history of coronary artery disease with prior stenting, most recently patient was in the hospital in July underwent 3 stent placements at that time, proximal RCA and proximal and mid circumflex at that time. Prior to that patient did have history of previous RCA stenting. History of hypertension, hyperlipidemia, abdominal aortic aneurysm status post endograft repair, prior nicotine dependence. He presented to the hospital on this occasion with symptoms of chest discomfort. According to the patient, on Wednesday of last week he was out raking his leads and had an episode of chest tightness, he went into the house and the symptoms subsided, he again had similar symptoms on Wednesday. Yesterday the patient states he was sitting at his computer and had an episode of sharp chest discomfort he took a nitroglycerin and the symptoms subsided, shortly thereafter the symptoms returned, he took a second nitroglycerin, it took care of the sharp pain but he states he had a pain that radiated across the chest, with the remaining pressure after that. He presented to [facility] and subsequently was transferred here for further evaluation and treatment. His EKG performed there showed a normal sinus rhythm with no acute changes. Lab data performed at [facility], white blood cell count 6.8, hemoglobin 13.7, platelet count 167. BUN 13, creatinine 0.7, sodium 141, potassium 4.0, troponin was negative chest x-ray showed borderline cardiomegaly with possible developing infiltrate in the right lung base. EKG on arrival here showed a normal sinus rhythm with nonspecific ST-T wave changes. I pressure 120/60 with a heart rate in the 60s, afebrile. White blood cell count 6.9, hemoglobin 13, platelet count 181. Sodium 143, potassium 4.2, BUN 13 and creatinine 0.7. Opponents are negative 3. Magnesium 2.4. Patient had an echocardiogram with Doppler study performed in July revealed a normal ejection fraction. At the time of my examination this morning, patient is currently chest pain-free. He is on IV heparin and nitroglycerin drips. 01/18/2019 Patient was seen and examined this morning, feels well, denies any further episodes of chest pain, he has not yet been ambulating in the hallway. Patient underwent a cardiac catheterization yesterday which revealed a patent RCA at the site of stenting and patent circumflex at the site of previously stented p roximal area however the 2 branches of the circumflex have significant disease with calcification. The LAD has a moderate ostial and proximal disease but the FFR did not reveal any hemodynamically significant lesion. Dr. Thompson's recommendation was to continue maximal medical therapy, he also was going to seek an opinion regarding circumflex intervention for this patient. Dr. Martinez did review the films, the plan at this time is to maximize his medications, have him up ambulating in the hallway this evening, we will observe him until tomorrow morning, if he has no further symptoms then we will discharge him home tomorrow on medical therapy. If the patient however has recurrence of symptoms, he will undergo arthrectomy and stenting of the circumflex. Objective - Vital Signs Vital signs: Vital Signs Temp 98.0 F 01/18/19 08:55 Pulse 81 01/18/19 08:55 Resp 18 01/18/19 08:55 BP 150/78 01/18/19 08:55 Pulse Ox 96 01/18/19 08:55 Intake & Output 01/17/19 01/18/19 01/18/19 18:59 06:59 18:59 Intake Total 1737.5 780 240 Balance 1737.5 780 240 Weight 100 kg Intake: IV 57.5 Intake, IV Titration 600 300 Amount Sodium Chloride 0.9% 1, 600 300 000 ml @ 75 mls/hr IV . [id number] [facility] Rx#:[id number] Oral 1080 480 240 Other: Voiding Method Toilet # Voids 1 3 2 - Exam PHYSICAL EXAMINATION: GENERAL: 69-year-old gentleman in no acute distress at the time of my examination HEENT: Head is atraumatic, normocephalic. Pupils equal, round. Sclera anicteric. Conjunctiva are clear. Mucous membranes of the mouth are moist. Neck is supple. There is no elevated jugular venous pressure. No carotid bruit is heard. HEART EXAMINATION: Heart S1, S2 normal. No murmur or gallop heard. CHEST EXAMINATION: Lungs are clear to auscultation and precussion. No chest wall tenderness is noted on palpation or with deep breathing. ABDOMEN: Soft, nontender. Bowel sounds are heard. No organomegaly noted. EXTREMITIES: 2+ peripheral pulses with no evidence of peripheral edema and no calf tenderness noted. Right groin is soft, no evidence of any hematoma. NEUROLOGIC patient is awake, alert and oriented 3 . - Labs CBC & Chem 7: 01/17/19 05:19 01/18/19 05:14 Labs: Abnormal Lab Results - Last 24 Hours (Table) 01/18/19 Range/Units 05:14 Chloride 109 H (98-107) mmol/L Glucose 102 H (74-99) mg/dL Assessment and Plan Plan: Assessment and plan #1 chest discomfort, suggestive of possible unstable angina. Troponins are negative 3. EKG shows normal sinus rhythm with no acute changes. #2 known history of coronary artery disease with prior stent placements, most recently in July of this year patient underwent stenting of the RCA and circumflex #3 hypertension #4 hyperlipidemia #5 prior history of smoking Plan Patient underwent a cardiac catheterization yesterday which revealed a patent RCA at the site of stenting and a patent circumflex at site of previously stented proximal area. 2 branches off of the circumflex have significant disease with calcification. The LAD has a moderate ostial and proximal lesion but FFR did not reveal any hemodynamically significant lesion and medical therapy was advised. Dr. Martinez did review the films, we will maximize this patient's medications, and ambulate in the hallway this evening. If he has recurrence of chest pain, he will then be scheduled to undergo arthrectomy with angioplasty and stenting tomorrow, if he remains symptom-free the patient will be discharged home in the morning and follow-up with Dr. Cynthia Thompson in the office. DNP note has been reviewed, I agree with a documented findings and plan of care. Patient was seen and examined.
[2019-01-18] MEDS: SODIUM CHLORIDE 0.9% 1,000 ML IV SCH ×2 (14:53→23:08)
[2019-01-18] MEDS: ISOSORBIDE MONONITRATE ER 60 MG TAB.ER.24H PO SCH (21:15)
[2019-01-18] MEDS: RANOLAZINE 500 MG TAB.ER.12H PO SCH (21:15)
[2019-01-18] MEDS: ATORVASTATIN 80 MG TAB PO SCH (21:17)
--- NOTE | 2019-01-19 00:36 | P.PN ---
Subjective Progress Note Date: 01/18/19 Principal diagnosis: This is a pleasant 7 years old male with past medical history of coronary artery disease, GERD, hyperlipidemia, hypertension, right lung cancer status post surg sanjiv in 2010, aortic aneurysm status post surgery in 2010, bilateral macular degeneration. He status post cardiac cath on 07/22/2018 and stent placement of his right coronary artery and circumflex artery This time patient presents with worsening chest pain. Patient was working on his computer yesterday when he started to have sharp central chest pain, patient states his chest pain is similar to last July when he had the cardiac cath and stent, his chest pain is nonradiating about 9/10 in severity that is relieved partially by nitroglycerin, however it recurs shortly and patient decided to come to the hospital. First he went to [facility], and upon contacting his productivity engineer Dr. Thompson it was advised patient to be transferred to the current [facility]. Patient chest pain has proceeded with several episodes of chest tightness through the week when he was playing with his grand- kids and in the garden Currently patient sitting on the side of the bed not in distress, chest pain is well to now at 1/10, while currently he is on heparin and nitro drip Vitals are stable, his blood pressure was slightly elevated on admission like 159/80, currently is 120/66. showing unremarkable CBC, BMP and liver enzymes. Troponins 2 are negative. EKG showing normal sinus rhythm at [address]-T changes with possible LVH and QTC of 445. On admission patient was started on heparin drip and nitroglycerin drip 01/17/2019 Patient lying in bed with no new symptoms. He denies chest pain or dyspnea. Labs and unremarkable. EKG from today showing 71 bpm, sinus rhythm, moderate criteria for LVH may be normal variant with QTC of 445. He underwent cardiac cath showing patent stents and the RCA and circumflex artery and non-significant disease of LAD however patient has significant coronary disease in 2 branches of the circumflex artery. Circuit Designer recommended to optimizing medical therapy. And possible second opinion 01/18/2019 Patient is sitting up in bed after walking around his room in no acute distress. No acute overnight issues. Cardiology is following closely. Patient currently denies any chest pain, shortness of breath, or palpitations at this time. Patient is afebrile. Patient denies any nausea or vomiting and is tolerating diet. Patient underwent cardiac catheterizaion yesterday and awaiting cardiology recommendations after discussing the case with another colleague and will continue with optimizing medical therapy at this time. will continue to monitor closely. Objective - Vital Signs Vital signs: Vital Signs Temp 98.0 F 01/18/19 23:51 Pulse 76 01/19/19 00:00 Resp 18 01/19/19 00:00 BP 134/73 01/18/19 23:51 Pulse Ox 97 01/18/19 23:51 Intake & Output 01/18/19 01/18/19 01/19/19 06:59 18:59 06:59 Intake Total 780 960 Balance 780 960 Weight 100 kg Intake: Intake, IV Titration 300 Amount Sodium Chloride 0.9% 1, 300 000 ml @ 75 mls/hr IV . [id number] [facility] Rx#:[id number] Oral 480 960 Other: Voiding Method Toilet Toilet # Voids 3 2 1 - Exam GENERAL: The patient is alert and oriented x3, not in any acute distress. Well developed, well nourished. HEENT: Pupils are round and equally reacting to light. EOMI. No scleral icterus. No conjunctival pallor. Normocephalic, atraumatic. No pharyngeal erythema. No thyromegaly. CARDIOVASCULAR: S1 and S2 present. No murmurs, rubs, or gallops. PULMONARY: Chest is clear to auscultation, no wheezing or crackles. ABDOMEN: Soft, nontender, nondistended, normoactive bowel sounds. No palpable organomegaly. MUSCULOSKELETAL: No joint swelling or deformity. EXTREMITIES: No cyanosis, clubbing, or pedal edema. NEUROLOGICAL: Gross neurological examination did not reveal any focal deficits. SKIN: No rashes. No petechiae - Labs CBC & Chem 7: 01/17/19 05:19 01/18/19 05:14 Labs: Abnormal Lab Results - Last 24 Hours (Table) 01/18/19 Range/Units 05:14 Chloride 109 H (98-107) mmol/L Glucose 102 H (74-99) mg/dL Assessment and Plan Assessment: -Chest pain, status post cardiac cath with patent stents and 2 new lesions in 2 branches of the circumflex artery -Hypertension -Hyperlipidemia -GERD -History of right lung cancer status post surgery 2010 -History of aortic aneurysm status post surgery in 2011 -Bilateral macular degeneration -DVT prophylaxis: subq heparin -GI prophylaxis: Pepcid Recommendations and discussion: Recommending continuing current medications, management, and symptomatic treatment. Cardiology is following closely. Will continue to monitor closely. Cardiology recommendations are to continue with maximizing medical therapy at this time and will monitor patient closely. If patient remains asymptomatic may consider close follow up in the outpatient setting. Guarded prognosis. Further recommendations to follow. Possible discharge in 24-48 hours.
[2019-01-19 07:45] VITALS: TEMP 98.2
[2019-01-19] MEDS: ASPIRIN 81 MG PO SCH (08:51)
[2019-01-19] MEDS: amLODIPine 5 MG TAB PO SCH (08:51)
[2019-01-19] MEDS: FAMOTIDINE 20 MG TAB PO SCH (08:52)
[2019-01-19] MEDS: ISOSORBIDE MONONITRATE ER 60 MG TAB.ER.24H PO SCH (08:52)
[2019-01-19] MEDS: CLOPIDOGREL 75 MG TAB PO SCH (08:52)
[2019-01-19] MEDS: LISINOPRIL 20 MG TAB PO SCH (08:53)
[2019-01-19] MEDS: METOPROLOL SUCCINATE (ER) 100 MG TAB.ER.24H PO SCH (08:54)
[2019-01-19] MEDS: RANOLAZINE 500 MG TAB.ER.12H PO SCH (08:55)
[2019-01-19 12:14] VITALS: BP 133/81; PULSE 82; RESP 20
[2019-01-19] MEDS: SODIUM CHLORIDE 0.9% 1,000 ML IV SCH (12:15)
--- NOTE | 2019-01-19 13:07 | P.PN ---
Subjective Progress Note Date: 01/19/19 This is a 69-year-old gentleman who follows regularly with Dr. Cynthia Thompson in the office. He has a known history of coronary artery disease with prior stenting, most recently patient was in the hospital in July underwent 3 stent placements at that time, proximal RCA and proximal and mid circumflex at that time. Prior to that patient did have history of previous RCA stenting. History of hypertension, hyperlipidemia, abdominal aortic aneurysm status post endograft repair, prior nicotine dependence. He presented to the hospital on this occasion with symptoms of chest discomfort. According to the patient, on Wednesday of last week he was out raking his leads and had an episode of chest tightness, he went into the house and the symptoms subsided, he again had similar symptoms on Wednesday. Yesterday the patient states he was sitting at his computer and had an episode of sharp chest discomfort he took a nitroglycerin and the symptoms subsided, shortly thereafter the symptoms returned, he took a second nitroglycerin, it took care of the sharp pain but he states he had a pain that radiated across the chest, with the remaining pressure after that. He presented to [facility] and subsequently was transferred here for further evaluation and treatment. His EKG performed there showed a normal sinus rhythm with no acute changes. Lab data performed at [facility], white blood cell count 6.8, hemoglobin 13.7, platelet count 167. BUN 13, creatinine 0.7, sodium 141, potassium 4.0, troponin was negative chest x-ray showed borderline cardiomegaly with possible developing infiltrate in the right lung base. EKG on arrival here showed a normal sinus rhythm with nonspecific ST-T wave changes. I pressure 120/60 with a heart rate in the 60s, afebrile. White blood cell count 6.9, hemoglobin 13, platelet count 181. Sodium 143, potassium 4.2, BUN 13 and creatinine 0.7. Opponents are negative 3. Magnesium 2.4. Patient had an echocardiogram with Doppler study performed in July revealed a normal ejection fraction. At the time of my examination this morning, patient is currently chest pain-free. He is on IV heparin and nitroglycerin drips. 01/18/2019 Patient was seen and examined this morning, feels well, denies any further episodes of chest pain, he has not yet been ambulating in the hallway. Patient underwent a cardiac catheterization yesterday which revealed a patent RCA at the site of stenting and patent circumflex at the site of previously stented p roximal area however the 2 branches of the circumflex have significant disease with calcification. The LAD has a moderate ostial and proximal disease but the FFR did not reveal any hemodynamically significant lesion. Dr. Thompson's recommendation was to continue maximal medical therapy, he also was going to seek an opinion regarding circumflex intervention for this patient. Dr. Martinez did review the films, the plan at this time is to maximize his medications, have him up ambulating in the hallway this evening, we will observe him until tomorrow morning, if he has no further symptoms then we will discharge him home tomorrow on medical therapy. If the patient however has recurrence of symptoms, he will undergo arthrectomy and stenting of the circumflex. 01/19/2019 Patient was seen and examined this morning, he's been up ambulating in the [place] last evening and most of today without any symptoms. He denies any shortness of breath, no chest tightness. Blood pressure 132/80 with a heart rate in the 80s, 97% on room air. Objective - Vital Signs Vital signs: Vital Signs Temp 98.2 F 01/19/19 07:42 Pulse 82 01/19/19 12:00 Resp 20 01/19/19 12:00 BP 133/81 01/19/19 12:00 Pulse Ox 97 01/19/19 12:00 Intake & Output 01/18/19 01/19/19 01/19/19 18:59 06:59 18:59 Intake Total 960 Balance 960 Weight 99 kg Intake: Oral 960 Other: Voiding Method Toilet # Voids 2 2 - Exam PHYSICAL EXAMINATION: GENERAL: 69-year-old gentleman in no acute distress at the time of my examination HEENT: Head is atraumatic, normocephalic. Pupils equal, round. Sclera anicteric. Conjunctiva are clear. Mucous membranes of the mouth are moist. Neck is supple. There is no elevated jugular venous pressure. No carotid bruit is heard. HEART EXAMINATION: Heart S1, S2 normal. No murmur or gallop heard. CHEST EXAMINATION: Lungs are clear to auscultation and precussion. No chest wall tenderness is noted on palpation or with deep breathing. ABDOMEN: Soft, nontender. Bowel sounds are heard. No organomegaly noted. EXTREMITIES: 2+ peripheral pulses with no evidence of peripheral edema and no calf tenderness noted. Right groin is soft, no evidence of any hematoma. NEUROLOGIC patient is awake, alert and oriented 3 . - Labs CBC & Chem 7: 01/17/19 05:19 01/18/19 05:14 Assessment and Plan Plan: Assessment and plan #1 chest discomfort, suggestive of possible unstable angina. Troponins are negative 3. EKG shows normal sinus rhythm with no acute changes. #2 known history of coronary artery disease with prior stent placements, most recently in July of this year patient underwent stenting of the RCA and circumflex #3 hypertension #4 hyperlipidemia #5 prior history of smoking Plan Patient underwent a cardiac catheterization yesterday which revealed a patent RCA at the site of stenting and a patent circumflex at site of previously stented proximal area. 2 branches off of the circumflex have significant disease with calcification. The LAD has a moderate ostial and proximal lesion but FFR did not reveal any hemodynamically significant lesion and medical therapy was advised. Dr. Martinez did review the films, we will maximize this patient's medications, and has ambulated in the hallway several times without any symptoms he may be able to be discharged home today from our perspective. We will continue maximal medical therapy, follow-up appointment with Dr. Cynthia Thompson in the office post discharge. If patient has recurrence of symptoms he's been advised to come back to the hospital, at which time Dr. Martinez states that he would perform arthrectomy with PCI. DNP note has been reviewed, I agree with a documented findings and plan of care. Patient was seen and examined.
--- NOTE | 2019-01-19 15:58 | P.DS ---
Providers Date of admission: 01/17/19 11:16 Expected date of discharge: 01/19/19 Attending physician: Parviz Pugh MD Consults: 01/15/19 18:53 Consult Physician Urgent Consulting Provider: [facility] Consult Reason/Comments: unstable angina Do you want consulting provider notified?: Yes Primary care physician: [facility] Course: Final diagnosis -Chest pain, status post cardiac cath with patent stents and 2 new lesions in 2 branches of the circumflex artery -Hypertension -Hyperlipidemia -GERD -History of right lung cancer status post surgery 2010 -History of aortic aneurysm status post surgery in 2010 -Bilateral macular degeneration -DVT prophylaxis -GI prophylaxis Discharge disposition Patient is being discharged in a stable condition with guarded prognosis to home and will follow up with cardiology in the outpatient setting in one week. Patient will continue on maximum medical therapy at this time. Total time taken is 35 minutes. History of present illness This is a 69-year-old male who was recently admitted with chest pain is being closely monitored. Patient recently underwent stent placement in July 2018. Patient underwent cardiac catheterization during hospitalization this admission which revealed patent RCA at the site of stenting and patent circumflex at the site of previously stented proximal area. There were 2 branches of the circumflex has significant disease with calcification. Patient is reluctant to have surgery at this time. Per cardiology recommendations patient will continue on maximum medical therapy and follow-up with them in the outpatient setting in 1-2 weeks. Currently patient denies any chest pain, shortness of breath, or palpitations at this conrado e. Patient is afebrile. Patient denies any nausea or vomiting and has been tolerating diet. Patient has been walking the halls all morning with no difficulties and having no symptoms of chest pain or shortness of breath. Patient would like to go home today. Guarded prognosis. On exam vital signs are stable. Temp is 98.2 F, pulse is 85, respirations are 16, blood pressure 117/65, oxygen saturation is 97% on room air. Cardio S1, S2 are present. Respiratory system shows diminished breath sounds at the bases with no wheezing or crackles noted. Abdomen is soft, thin, non-tender. Nervous system shows no focal deficits and gait is steady. Please refer to medication reconciliation sheet for a list of medications. Patient Condition at Discharge: Stable Plan - Discharge Summary Discharge Rx Participant: Yes New Discharge Prescriptions: New Isosorbide Mononitrate ER [Imdur] 60 mg PO BID 30 Days #60 tab.er.24h Nitroglycerin Sl Tabs [Nitrostat] 0.4 mg SUBLINGUAL Q5M PRN #30 tab PRN Reason: Chest Pain Famotidine [Pepcid] 20 mg PO Q12HR 30 Days #60 tab Ranolazine [Ranexa] 500 mg PO Q12HR 30 Days #60 tab.er.12h Continue amLODIPine [Norvasc] 5 mg PO BID Metoprolol Succinate (ER) [Toprol XL] 100 mg PO QAM Clopidogrel [Plavix] 75 mg PO DAILY #90 tab Vit C/E/Zn/Coppr/Lutein/Zeaxan [Preservision Areds 2 Softgel] 1 cap PO BID Atorvastatin [Lipitor] 80 mg PO DAILY Vitamin B Complex 1 cap PO DAILY Multivitamins, Thera [Multivitamin (formulary)] 1 tab PO DAILY Aspirin 81 mg PO DAILY Quinapril HCl 20 mg PO BID Discontinued Isosorbide Mononitrate ER [Imdur] 30 mg PO BID Discharge Medication List Metoprolol Succinate (ER) [Toprol XL] 100 mg PO QAM 04/29/15 [History] amLODIPine [Norvasc] 5 mg PO BID 04/29/15 [History] Clopidogrel [Plavix] 75 mg PO DAILY #90 tab 05/01/15 [Rx] Vit C/E/Zn/Coppr/Lutein/Zeaxan [Preservision Areds 2 Softgel] 1 cap PO BID 05/03/15 [History] Atorvastatin [Lipitor] 80 mg PO DAILY 12/27/18 [History] Vitamin B Complex 1 cap PO DAILY 12/27/18 [History] Aspirin 81 mg PO DAILY 01/15/19 [History] Multivitamins, Thera [Multivitamin (formulary)] 1 tab PO DAILY 01/15/19 [History] Quinapril HCl 20 mg PO BID 01/15/19 [History] Famotidine [Pepcid] 20 mg PO Q12HR 30 Days #60 tab 01/19/19 [Rx] Isosorbide Mononitrate ER [Imdur] 60 mg PO BID 30 Days #60 tab.er.24h 01/19/19 [Rx] Nitroglycerin Sl Tabs [Nitrostat] 0.4 mg SUBLINGUAL Q5M PRN #30 tab 01/19/19 [Rx] Ranolazine [Ranexa] 500 mg PO Q12HR 30 Days #60 tab.er.12h 01/19/19 [Rx] Follow up Appointment(s)/Referral(s): Teresa Thompson MD [STAFF PHYSICIAN] - 1 Week (Office will call with follow up appointment. ) Omar Luque MD [Primary Care Provider] - 01/23/19 10:45 am Patient Instructions/Handouts: Coronary Artery Disease (DC), Heart Healthy Diet (DC) Activity/Diet/Wound Care/Special Instructions: CARDIAC CATH Support your puncture site by applying firm, steady pressure whenever you cough, laugh, sneeze or bear down to have a bowel movement (2-day restriction). Watch for any excessive bruising, active bleeding, a firm knot forming under your skin, extreme tenderness and signs of infection (redness, swelling, fever). Shower daily, do not soak puncture in a tub bath, jacuzzi, pool, jaquez etc. for 1 week. This is to prevent risk of infection. Drink plenty of fluids the day of and day after your procedure to flush contrast dye out of your kidneys. Take all medications as directed. Never stop any new medication without your physicians OK. No driving for 2 days after procedure. 10- pound weight lifting restriction for 1 week. Low sodium/low fat diet. 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 In case of any problems, please call [facility] [place] @ [phone]. Activity Limited until follow-up Follow-up with primary care provider upon discharge Follow-up with cardiology as discussed and scheduled Continue current heart healthy diet Discharge Disposition: HOME SELF-CARE
== END 2019-01-19 13:30 | disposition home or self-care (01) ==
LOC: EC 17:34 → 1SOBS 18:53 → 3SCARD 20:38 → INTOOBSV 01-17 11:16 → OBSVTOIN 01-17 11:16 → UNDODISIN 01-19 13:30
PROVIDERS: ADMIT Internal Medicine; ATTEND Internal Medicine
PROC: 4A023N7 Measurement of Cardiac Sampling and Pressure, Left Heart, Percutaneous Approach (ICD-10-PCS; principal; 2019-01-17 07:30)
PROC: B2111ZZ Fluoroscopy of Multiple Coronary Arteries using Low Osmolar Contrast (ICD-10-PCS; principal; 2019-01-17 07:30)
DX: I25.10 Atherosclerotic heart disease of native coronary artery without angina pectoris (principal); E78.5 Hyperlipidemia, unspecified; I10 Essential (primary) hypertension; K21.9 Gastro-esophageal reflux disease without esophagitis; H35.30 Unspecified macular degeneration; Z85.118 Personal history of other malignant neoplasm of bronchus and lung; Z86.79 Personal history of other diseases of the circulatory system; I25.2 Old myocardial infarction; Z79.899 Other long term (current) drug therapy; Z79.82 Long term (current) use of aspirin; Z79.02 Long term (current) use of antithrombotics/antiplatelets; Z95.5 Presence of coronary angioplasty implant and graft; Z98.890 Other specified postprocedural states; Z90.2 Acquired absence of lung [part of]; Z98.42 Cataract extraction status, left eye; Z98.41 Cataract extraction status, right eye; Z87.891 Personal history of nicotine dependence; Z96.1 Presence of intraocular lens; Z82.49 Family history of ischemic heart disease and other diseases of the circulatory system; Z80.3 Family history of malignant neoplasm of breast; Z80.9 Family history of malignant neoplasm, unspecified; E66.9 Obesity, unspecified; Z68.32 Body mass index [BMI] 32.0-32.9, adult
CPT/HCPCS: 96376 ×2; 96366 ×3; 96375; 96368 ×2; 96365; 99285; 36415; 93005; 93571; 93458; 80053; 80048; 84484 ×2; 85025 ×3; 85610 ×3; 85730 ×2; 99152; 99153 ×3; G0378 ×6; C8929; C1760; C1769 ×4; C1887; C1894 ×2; J2250; J1644 ×4; J2001; J1170; J0153; Q9950; Q9967 ×2; 93306

== ENCOUNTER 2019-12-30 00:11 | Observation (INO) | payer MEDICARE ==
[2019-12-30] MEDS ORDERED: NITROGLYCERIN SL TABS 0.4 MG TAB SUBLINGUAL PRN ×4 (00:26→13:06)
--- NOTE | 2019-12-30 00:27 | ED ---
Chest Pain HPI - General Chief Complaint: Chest Pain Stated Complaint: Chest Pain Time Seen by Provider: 12/30/19 00:20 Source: EMS, RN notes reviewed, old records reviewed Mode of arrival: EMS Limitations: no limitations - History of Present Illness Initial Comments: This 69-year-old male who is accepted in transfer for evaluation patient Dese for evaluation regards to chest pain known history of heart disease multiple stents placed. Patient has no other complaints no travel history no sick contacts he does have history of similar complaint complaints in the past multiple hospital admissions for same. Travel history no sick contacts. Symptoms started today, patient accepted in transfer from outside facility for cardiac evaluation Complaint: chest pain -: hour(s) Onset: during rest, during exertion Pain Location: substernal, left chest Pain Radiation: LUE Severity: mild Severity scale (1-10): 3 Quality: tightness, heaviness Consistency: constant Improves With: nothing Worsens With: nothing Context: other (history of same) Anginal Symptoms: dyspnea Other Symptoms: palpitations Treatments Prior to Arrival: none, aspirin, nitroglycerin - Related Data Home Medications Medication Instructions Recorded Confirmed Metoprolol Succinate (ER) [Toprol 100 mg PO QAM 04/29/15 01/15/19 XL] amLODIPine [Norvasc] 5 mg PO BID 04/29/15 01/15/19 Vit C/E/Zn/Coppr/Lutein/Zeaxan 1 cap PO BID 05/03/15 01/15/19 [Preservision Areds 2 Softgel] Atorvastatin [Lipitor] 80 mg PO DAILY 12/27/18 01/15/19 Vitamin B Complex 1 cap PO DAILY 12/27/18 01/15/19 Aspirin 81 mg PO DAILY 01/15/19 01/15/19 Multivitamins, Thera [Multivitamin 1 tab PO DAILY 01/15/19 01/15/19 (formulary)] Quinapril HCl 20 mg PO BID 01/15/19 01/15/19 Previous Rx's Medication Instructions Recorded Clopidogrel [Plavix] 75 mg PO DAILY #90 tab 05/01/15 Famotidine [Pepcid] 20 mg PO Q12HR 30 Days #60 tab 01/19/19 Isosorbide Mononitrate ER [Imdur] 60 mg PO BID 30 Days #60 tab.er.24h 11/14/19 Nitroglycerin Sl Tabs [Nitrostat] 0.4 mg SUBLINGUAL Q5M PRN #30 tab 01/19/19 Ranolazine [Ranexa] 500 mg PO Q12HR 30 Days #60 01/19/19 tab.er.12h Allergies Allergy/AdvReac Type Severity Reaction Status Date / Time No Known Allergies Allergy Verified 12/30/19 00:20 Review of Systems ROS Statement: Those systems with pertinent positive or pertinent negative responses have been documented in the HPI. ROS Other: All systems not noted in ROS Statement are negative. Past Medical History Past Medical History: Coronary Artery Disease (CAD), Cancer, Chest Pain / Angina, Eye Disorder, GERD/Reflux, Hyperlipidemia, Hypertension Additional Past Medical History / Comment(s): R lung cancer with surgery in 2010, aortic aneurysm with surgery 2010, bilateral macular degeneration/bilateral retinal bleeds-gets eye injections q 5 weeks. History of Any Multi-Drug Resistant Organisms: None Reported Past Surgical History: Heart Catheterization, Heart Catheterization With Stent Additional Past Surgical History / Comment(s): 05/01/15 PCI with stent to mid RCA radial approach, 2010 RIGHT UPPER LOBECTOMY, 2010 AORTIC ANEURYSM REPAIR- WITH STENT, PTCA x 3 vessels in 1990, bilateral cartaract removal with lens implants, COLONOSCOPY. Past Anesthesia/Blood Transfusion Reactions: No Reported Reaction Date of Last Stent Placement:: 05/01/15 Past Psychological History: No Psychological Hx Reported Smoking Status: Former smoker Past Alcohol Use History: Occasional Past Drug Use History: None Reported - Past Family History Mother Family Medical History: Cancer, Myocardial Infarction (VT) Additional Family Medical History / Comment(s): BREAST CANCER. Mother at age 78 yrs of a VT Father Family Medical History: Cancer, Prostate Disorder Additional Family Medical History / Comment(s): Father had prostate problems- possibly cancer of prostate and/or colon. He at age 65 yrs. General Exam Limitations: no limitations General appearance: alert, in no apparent distress Head exam: Present: atraumatic, normocephalic, normal inspection Eye exam: Present: normal appearance, PERRL, EOMI. Absent: scleral icterus, conjunctival injection, periorbital swelling ENT exam: Present: normal exam, mucous membranes moist Neck exam: Present: normal inspection. Absent: tenderness, meningismus, lymphadenopathy Respiratory exam: Present: normal lung sounds bilaterally. Absent: respiratory distress, wheezes, rales, rhonchi, stridor Cardiovascular Exam: Present: regular rate, normal rhythm, normal heart sounds. Absent: systolic murmur, diastolic murmur, rubs, gallop, clicks GI/Abdominal exam: Present: soft, normal bowel sounds. Absent: distended, tenderness, guarding, rebound, rigid Extremities exam: Present: normal inspection, full ROM, normal capillary refill. Absent: tenderness, pedal edema, joint swelling, calf tenderness Back exam: Present: normal inspection Neurological exam: Present: alert, oriented X3, CN II-XII intact Psychiatric exam: Present: normal affect, normal mood Skin exam: Present: warm, dry, intact, normal color. Absent: rash Course Vital Signs 12/30/19 00:13 Temperature 98.8 F Pulse Rate 75 Respiratory 18 Rate O2 Sat by Pulse 96 Oximetry - Reevaluation(s) Reevaluation #1: 12/30/19 00:26 Medical record is reviewed 12/30/19 00:26 Transferring paperwork is reviewed with negative troponin normal EKG 12/30/19 00:26 Did speak with transferring physician Reevaluation #2: 12/30/19 00:26 Spoke patient regarding findings and questions here in the ER, questions answered Chest Pain MDM - MDM 69 male DF for evaluation, patient accepted in transfer for evaluation of chest pain, admitted for chest pain observation cardiology to evaluate Disposition Clinical Impression: Chest pain Disposition: ADMITTED IP TO THIS HOSP Condition: Fair Is patient prescribed a controlled substance at d/c from ED?: No Referrals: Omar Luque MD [Primary Care Provider] - 1-2 days
[2019-12-30 08:59] LABS: Basophils % (A) 1 %; Eosinophils # (A) 0.2 k/uL (0-0.7); Eosinophils % (A) 3 %; HCT 39.6 % (39.0-53.0); Lymphocytes # (A) 1.3 k/uL (1.0-4.8); Lymphocytes % (A) 23 %; MCH 30.1 pg (25.0-35.0); MCHC 32.8 g/dL (31.0-37.0); MCV 91.7 fL (80.0-100.0); Mean Platelet Volume 8.3; Monocytes # (A) 0.4 k/uL (0-1.0); Monocytes % (A) 7 %; Neutrophils # (A) 3.6 k/uL (1.3-7.7); Neutrophils % (A) 64 %; Platelet Count 152 k/uL (150-450); RBC 4.32 m/uL (4.30-5.90); RDW 13.6 % (11.5-15.5); WBC 5.6 k/uL (3.8-10.6)
[2019-12-30] MEDS ORDERED: METOPROLOL TARTRATE 25 MG TAB PO SCH (09:00)
[2019-12-30 09:22] LABS: African American GFR (CKD) >90 (>60 ml/min/1.73 sqM); Anion Gap 3 mmol/L; Blood Urea Nitrogen 14 mg/dL (9-20); Calcium 8.9 mg/dL (8.4-10.2); Carbon Dioxide 28 mmol/L (22-30); Chloride 108 mmol/L (98-107); Glucose 107 mg/dL (74-99); Non-African American GFR(CKD) 88 (>60 ml/min/1.73 sqM); Potassium 4.5 mmol/L (3.5-5.1); Sodium 139 mmol/L (137-145)
[2019-12-30] MEDS ORDERED: HEPARIN SODIUM,PORCINE 5,000 UNIT/ML 1 ML VIAL IV ONE (11:17)
[2019-12-30] MEDS ORDERED: HEPARIN SODIUM,PORCINE 5,000 UNIT/ML 1 ML VIAL IV PRN (11:17)
[2019-12-30] MEDS ORDERED: ALPRAZolam 0.5 MG TAB PO PRN ×2 (11:22→13:06)
[2019-12-30] MEDS ORDERED: ASPIRIN 325 MG TAB PO STA (11:22)
[2019-12-30] MEDS ORDERED: ATORVASTATIN 80 MG TAB PO STA (11:22)
[2019-12-30] MEDS ORDERED: SODIUM CHLORIDE 0.9% 1,000 ML in EMPTY BAG 1 BAG IV ONE ×2 (11:22→20:00)
[2019-12-30] MEDS ORDERED: ALPRAZolam 0.25 MG TAB PO PRN ×2 (11:22→13:06)
[2019-12-30] MEDS: FAMOTIDINE 20 MG TAB PO SCH ×2 (11:26→19:42)
[2019-12-30] MEDS: lisinopriL 20 MG TAB PO SCH ×2 (11:27→19:42)
[2019-12-30] MEDS: RANOLAZINE 500 MG TAB.ER.12H PO SCH ×2 (11:27→19:42)
[2019-12-30] MEDS: amLODIPine 5 MG TAB PO SCH ×2 (11:27→19:41)
[2019-12-30] MEDS: ISOSORBIDE MONONITRATE ER 60 MG TAB.ER.24H PO SCH (11:27)
[2019-12-30] MEDS: METOPROLOL SUCCINATE (ER) 100 MG TAB.ER.24H PO SCH (11:28)
[2019-12-30] MEDS: CLOPIDOGREL 75 MG TAB PO SCH (11:28)
[2019-12-30] MEDS: HEPARIN SOD,PORK IN 0.45% NACL 25,000 UNIT in 0.45% NACL 1 250ML.BAG IV SCH (12:03)
--- NOTE | 2019-12-30 13:09 | P.CRDCN ---
History of Present Illness Consult date: 12/30/19 History of present illness: CHIEF COMPLAINT: Chest pain HISTORY OF PRESENT ILLNESS: This is a 69-year old male with a past medical history significant for coronary artery disease with previous PCI, lung cancer, hypertension, hyperlipidemia, and former nicotine dependence. Patient follows in the office with Dr. Thompson. We have been asked to see the patient in consultation for chest pain. Patient examined this morning at the bedside. Patient states he was out shopping yesterday with his at [employer] and was feeling in his usual state of health. He reports carrying boxes in from the car to the porch after shopping and began having some chest tightness. He states he went inside and sat down to rest. The pain persisted for approximately 20 minutes and then went away. He denied radiation to jaw or arm. Denied shortness of breath. He states he had another episode of chest pain around 1800 yesterday when he was walking from one room to another in his house. He states he took sublingual nitro and his pain eased up but did not go away so he decided to come to the emergency room for further evaluation. He states he had another episode of chest discomfort this morning as he was walking in his room. At the time of my examination he denies chest pain or shortness of breath. Patient has a history of heart cath in 2018 revealing patent stents to RCA and circumflex. The patient had 2 branches of the circumflex with significant disease and was referred to [facility] for further evaluation. Patient underwent cardiac cath at [facility] in [place] in April 2019 with PCI to the circumflex. DIAGNOSTICS: EKG reveals sinus rhythm Laboratory data: WBC 5.6. Hemoglobin 13.0. Platelet count 152. Sodium 139. Potassium 4.5. BUN 14. Creatinine 0.86. Troponin negative 3. Current home cardiac medications include Ranexa 500 mg twice a day, quinapril 20 mg twice a day, Norvasc 5 mg twice a day, metoprolol 100 mg daily, Imdur 60 g daily, Plavix 75 mg daily, Lipitor 80 mg daily and aspirin 81 mg daily Echocardiogram completed in January 2019 reveals ejection fraction 55-60%, mild mitral regurgitation, mild tricuspid regurgitation REVIEW OF SYSTEMS: At the time of my exam: CONSTITUTIONAL: Denies fever or chills. HEENT: Denies blurred vision, vision changes, or eye pain. Denies hemoptysis CARDIOVASCULAR: Denies chest pain, orthopnea, PND or palpitations RESPIRATORY: No shortness of breath. GASTROINTESTINAL: Denies abdominal pain. Denies nausea or vomiting. HEMATOLOGIC: Denies bleeding disorders. GENITOURINARY: Denies any blood in urine. SKIN: Denies pruitis. Denies rash. PHYSICAL EXAM: VITAL SIGNS: Reviewed. GENERAL: Well-developed in no acute distress. HEENT: Head is normocephalic. Pupils are equal, round. Sclerae anicteric. Mucous membranes of the mouth are moist. Neck supple. No JVD or thyromegaly LUNGS: Respirations even and unlabored. Lungs essentially clear to auscultation bilaterally. HEART: Regular rate and rhythm. S1 and S2 heard. ABDOMEN: Soft. Nondistended. Nontender. EXTREMITIES: Normal range of motion. No clubbing or cyanosis. Peripheral pulses intact. No lower extremity edema NEUROLOGIC: Awake and alert. Oriented x 3. ASSESSMENT: Unstable angina Coronary artery disease with previous PCI to RCA and circumflex Hypertension Hyperlipidemia History of nicotine dependence, in remission PLAN: Resume home cardiac medications Obtain 2-D echo to assess cardiac structure and function Begin heparin drip Patient to undergo cardiac cath tomorrow with Dr. Thompson Nurse practitioner note has been reviewed by physician. Signing provider agrees with the documented findings, assessment, and plan of care. Past Medical History Past Medical History: Coronary Artery Disease (CAD), Cancer, Chest Pain / Angina, Eye Disorder, GERD/Reflux, Hyperlipidemia, Hypertension Additional Past Medical History / Comment(s): R lung cancer with surgery in 2010, aortic aneurysm with surgery 2010, bilateral macular degeneration/bilateral retinal bleeds-gets eye injections q 5 weeks. History of Any Multi-Drug Resistant Organisms: None Reported Past Surgical History: Heart Catheterization, Heart Catheterization With Stent Additional Past Surgical History / Comment(s): 05/01/15 PCI with stent to mid RCA radial approach, 2010 RIGHT UPPER LOBECTOMY, 2010 AORTIC ANEURYSM REPAIR- WITH STENT, PTCA x 3 vessels in 1990, bilateral cartaract removal with lens implants, COLONOSCOPY. Past Anesthesia/Blood Transfusion Reactions: No Reported Reaction Date of Last Stent Placement:: 05/01/15 Past Psychological History: No Psychological Hx Reported Additional Psychological History / Comment(s): Pt resides with his spouse. He is independent. Smoking Status: Former smoker Past Alcohol Use History: Occasional Additional Past Alcohol Use History / Comment(s): Pt started smoking in 1965 and was a 2ppd smoker of cigarettes and also smoked pipe. He quit in 2010 Past Drug Use History: None Reported - Past Family History Mother Family Medical History: Cancer, Myocardial Infarction (SC) Additional Family Medical History / Comment(s): BREAST CANCER. Mother at age 78 yrs of a SC Father Family Medical History: Cancer, Prostate Disorder Additional Family Medical History / Comment(s): Father had prostate problems- possibly cancer of prostate and/or colon. He at age 65 yrs. Medications and Allergies Home Medications Medication Instructions Recorded Confirmed Type Metoprolol Succinate (ER) [Toprol 100 mg PO DAILY 04/29/15 12/30/19 History XL] amLODIPine [Norvasc] 5 mg PO BID 04/29/15 12/30/19 History Clopidogrel [Plavix] 75 mg PO DAILY #90 tab 05/01/15 12/30/19 Rx Atorvastatin [Lipitor] 80 mg PO HS 12/27/18 12/30/19 History Vitamin B Complex 1 cap PO HS 12/27/18 12/30/19 History Aspirin 81 mg PO DAILY 01/15/19 12/30/19 History Multivitamins, Thera [Multivitamin 1 tab PO HS 01/15/19 12/30/19 History (formulary)] Quinapril HCl 20 mg PO BID 01/15/19 12/30/19 History Nitroglycerin Sl Tabs [Nitrostat] 0.4 mg SUBLINGUAL Q5M PRN #30 tab 01/19/19 12/30/19 Rx Famotidine [Pepcid] 20 mg PO BID 12/30/19 12/30/19 History Isosorbide Mononitrate ER [Imdur] 60 mg PO DAILY 12/30/19 12/30/19 History Ranolazine [Ranexa] 500 mg PO BID 12/30/19 12/30/19 History Allergies Allergy/AdvReac Type Severity Reaction Status Date / Time No Known Allergies Allergy Verified 12/30/19 09:57 Physical Exam Vitals: Vital Signs Temp Pulse Pulse Resp BP BP Pulse Ox 12/30/19 08:40 98.2 F 68 16 124/67 98 12/30/19 03:00 98.3 F 71 17 122/69 96 12/30/19 01:27 97.7 F 72 18 159/74 96 12/30/19 00:13 98.8 F 75 18 131/83 96 Intake and Output 12/29/19 12/30/19 12/30/19 22:59 06:59 14:59 Other: Voiding Method Toilet Toilet # Voids 1 1 Weight 92.986 kg Results 12/30/19 08:46 12/30/19 08:46 Cardiac Enzymes 12/30/19 12/30/19 12/30/19 Range/Units 01:28 04:33 08:46 Troponin I <0.012 <0.012 <0.012 (0.000-0.034) ng/mL CBC 12/30/19 Range/Units 08:46 WBC 5.6 (3.8-10.6) k/uL RBC 4.32 (4.30-5.90) m/uL Hgb 13.0 (13.0-17.5) gm/dL Hct 39.6 (39.0-53.0) % Plt Count 152 (150-450) k/uL Comprehensive Metabolic Panel 12/30/19 Range/Units 08:46 Sodium 139 (137-145) mmol/L Potassium 4.5 (3.5-5.1) mmol/L Chloride 108 H (98-107) mmol/L Carbon Dioxide 28 (22-30) mmol/L BUN 14 (9-20) mg/dL Creatinine 0.86 (0.66-1.25) mg/dL Glucose 107 H (74-99) mg/dL Calcium 8.9 (8.4-10.2) mg/dL Current Medications Generic Name Dose Route Start Last Admin Trade Name Freq PRN Reason Stop Dose Admin Aspirin 325 mg 12/31/19 09:00 Aspirin 325 Mg Tab PO DAILY NARESH Metoprolol Tartrate 25 mg 12/30/19 09:00 Metoprolol Tartrate 25 Mg Tab PO BID NARESH Nitroglycerin 0.4 mg 12/30/19 00:26 Nitroglycerin Sl Tabs 0.4 Mg Tab SUBLINGUAL Q5M PRN Chest Pain Intake and Output 12/29/19 12/30/19 12/30/19 22:59 06:59 14:59 Other: Voiding Method Toilet Toilet # Voids 1 1 Weight 92.986 kg 12/30/19 08:46 12/30/19 08:46
--- NOTE | 2019-12-30 17:57 | HP ---
HISTORY AND PHYSICAL DATE OF SERVICE: 12/30/2019 CHIEF COMPLAINT: Chest pain. HISTORY OF PRESENT ILLNESS: This 69-year-old gentleman with a past medical history of multiple medical problems including CAD, history of chest pain, GERD, hypertension, hyperlipidemia, history of right lung cancer surgery, being followed Dr. Omar Luque in the outpatient setting, complaining of chest pain which is mostly situated in the anterior part of chest as well as the left side of the chest. The patient was evaluated. Troponins are negative. The EKG present on admission showed no acute changes. Cardiology has seen the patient and recommended possible cardiac catheterization. Chest pain was induced by exertion by carrying boxes and was more of a tightness in character. Otherwise without any radiation elsewhere. There is no history of any shortness of breath, diaphoresis, nausea or vomiting associated with chest pain. PAST MEDICAL HISTORY: History of CAD, history of chest pain, DJD, history of hypertension, hyperlipidemia, history of lung cancer surgery. MEDICATIONS: Vitamin B complex, Ranexa, Quinapril, Nitrostat, multivitamins, Norvasc, Toprol, Imdur, Pepcid, Plavix, Lipitor, aspirin. ALLERGIES: None. FAMILY HISTORY: Family history of cancer, myocardial infarction in the family, breast cancer. SOCIAL HISTORY: No history of current smoking. Previous smoker. No history of alcohol intake. REVIEW OF SYSTEMS: ENT: No diminished vision. No diminished hearing. CARDIOVASCULAR: No angina or palpitations. RESPIRATIONS: As mentioned earlier. GI: As mentioned earlier. : No dysuria. NERVOUS SYSTEM: No numbness or weakness. ALLERGY/IMMUNOLOGY: No asthma or hayfever. MUSCULOSKELETAL as mentioned earlier. HEMATOLOGY/ONCOLOGY: No history of anemia. ENDOCRINE as mentioned earlier. CONSTITUTIONAL: As mentioned earlier. DERMATOLOGY: Negative. RHEUMATOLOGY negative. PSYCHIATRY as mentioned earlier. PHYSICAL EXAMINATION: Alert and oriented times three. Pulse 68, blood pressure 124/60, respirations 16, temperature 98.2, pulse ox 98% on room air. HEENT: Conjunctivae normal. NECK: No JVD. CARDIOVASCULAR: S1, S2 muffled. RESPIRATIONS: Breath sounds diminished in the bases. No rhonchi. No crackles. ABDOMEN: Soft, nontender. No mass palpable. LEGS: No edema. No swelling. NERVOUS SYSTEM: Higher functions as mentioned earlier. Moves all 4 limbs. No focal motor or sensory deficits. SKIN: No ulcer, rash or bleeding. JOINTS: No active deforming arthropathy. LABS: CBC within normal limits. Chloride is 108, glucose 107. ASSESSMENT: 1. Chest pain, possible unstable angina. 2. History of coronary artery disease. 3. History of gastroesophageal reflux disease. 4. Hypertension. 5. Hyperlipidemia. 6. History of right lung cancer. 7. History of aortic aneurysm surgery. 8. Bilateral macular degeneration. 9. History of coronary artery disease/stent. 10.Remote history of nicotine dependence. 11.FULL CODE. RECOMMENDATIONS AND DISCUSSION: In this 69-year-old male who presented with multiple complex medical issues, at this time, we will monitor the patient closely. Continue the current medications, management and symptomatic treatment. Otherwise, we will rule out myocardial infarction. Unstable angina protocol. Possible cardiac cath per Cardiology. Guarded prognosis. Further recommendations to follow. BRANDY / GERALD: [id number] /
[2019-12-30] MEDS: ATORVASTATIN 80 MG TAB PO SCH (19:42)
[2019-12-31] MEDS ORDERED: ATORVASTATIN 80 MG TAB PO ONE (07:00)
[2019-12-31] MEDS ORDERED: ASPIRIN 325 MG TAB PO ONE (07:00)
[2019-12-31 07:24] LABS: Basophils % (A) 0 %; Eosinophils # (A) 0.2 k/uL (0-0.7); Eosinophils % (A) 4 %; HCT 39.5 % (39.0-53.0); Lymphocytes # (A) 1.3 k/uL (1.0-4.8); Lymphocytes % (A) 20 %; MCH 30.3 pg (25.0-35.0); MCV 91.9 fL (80.0-100.0); Mean Platelet Volume 7.7; Monocytes # (A) 0.4 k/uL (0-1.0); Monocytes % (A) 6 %; Neutrophils # (A) 4.5 k/uL (1.3-7.7); Neutrophils % (A) 69 %; Platelet Count 151 k/uL (150-450); RBC 4.29 m/uL (4.30-5.90); RDW 13.5 % (11.5-15.5); WBC 6.5 k/uL (3.8-10.6)
[2019-12-31] MEDS: RANOLAZINE 500 MG TAB.ER.12H PO SCH ×2 (08:10→20:25)
[2019-12-31] MEDS: lisinopriL 20 MG TAB PO SCH ×2 (08:10→20:24)
[2019-12-31] MEDS: ASPIRIN 81 MG PO SCH (08:11)
[2019-12-31] MEDS: METOPROLOL SUCCINATE (ER) 100 MG TAB.ER.24H PO SCH (08:11)
[2019-12-31] MEDS: CLOPIDOGREL 75 MG TAB PO SCH (08:11)
[2019-12-31] MEDS: FAMOTIDINE 20 MG TAB PO SCH ×2 (08:11→20:24)
[2019-12-31] MEDS: amLODIPine 5 MG TAB PO SCH ×2 (08:11→20:25)
[2019-12-31] MEDS: ISOSORBIDE MONONITRATE ER 60 MG TAB.ER.24H PO SCH (08:11)
[2019-12-31 08:28] LABS: Cholesterol 158 mg/dL (<200); Triglycerides 141 mg/dL (<150)
[2019-12-31 08:42] LABS: HDL Cholesterol 40 mg/dL (40-60); LDL Cholesterol,Calculated 90 mg/dL (0-99)
[2019-12-31] MEDS ORDERED: ASPIRIN 325 MG TAB PO SCH (09:00)
[2019-12-31] MEDS: HEPARIN SOD,PORK IN 0.45% NACL 25,000 UNIT in 0.45% NACL 1 250ML.BAG IV SCH (12:50)
[2019-12-31] MEDS ORDERED: LIDOCAINE 1% INJ 10MG/ML (20 ML MDV) ONE (13:21)
[2019-12-31] MEDS: MIDAZOLAM 2 MG/2 ML VIAL IV ONE ×2 (13:32→13:35)
[2019-12-31] MEDS ORDERED: IV FLUID CONTINUATION 1,000 ML IV ONE (13:32)
[2019-12-31] MEDS ORDERED: LIDOCAINE 1% INJ 10MG/ML (20 ML MDV) SQ ONE (13:40)
[2019-12-31] MEDS ORDERED: IOPAMIDOL-370 100ML BTL INJ ONE (13:57)
--- NOTE | 2019-12-31 15:32 | PN ---
PROGRESS NOTE DATE OF SERVICE: 12/31/2019 This is a 69-year-old gentleman who was admitted with chest pain. He is scheduled to have a cardiac catheterization by Cardiology. No chest pain. No palpitations. No fever. PHYSICAL EXAMINATION: GENERAL: Patient is alert and oriented times three. VITAL SIGNS: Pulse 71, blood pressure 150/80, respirations 16, temperature 97.8, pulse ox 92% on room air. HEENT: Conjunctivae normal. NECK: No jugular venous distention. RESPIRATORY: Breath sounds diminished at the bases. No rhonchi, no crackles. HEART: S1 and S2, muffled. ABDOMEN: Soft. NERVOUS: No focal deficits. LABORATORY DATA: CBC and BMP noted. Lipid panel is normal. ASSESSMENT: 1. Chest pain, possible unstable angina. 2. History of coronary artery disease. 3. History of gastroesophageal reflux disease. 4. Hypertension. 5. Hyperlipidemia. 6. History of right lung cancer. 7. History of aortic aneurysm surgery. 8. Bilateral macular degeneration. 9. History of *coronary artery disease and stent. 10.Remote history of nicotine dependence. 11.FULL CODE. RECOMMENDATIONS AND DISCUSSION: I recommend to continue current medications, continue symptomatic treatment. Continue with the cardiac cath per Cardiology. Guarded prognosis. Further recommendations to follow. MMODL / IJN: [id number] /
--- NOTE | 2019-12-31 18:02 | CC ---
CARDIAC CATHETERIZATION REPORT DATE OF SERVICE: 12/31/2019 PROCEDURE PERFORMED: Left heart catheterization and coronary angiography. PERFORMED BY: Dr. Hedy Thompson. SEDATION: Moderate conscious sedation time was 24 minutes. Patient was administered Versed. Oxygen saturation, hemodynamics and EKG were monitored closely. CLINICAL INFORMATION: Mr. Donovan Del Valle is a 69-year-old gentleman with a known history of CAD with multivessel PCI involving the circumflex and RCA performed on several occasions. The last PCI of RCA was performed in July of 2018 by me in the proximal portion. The proximal and mid circumflex was stented at [facility] in April of this year. His LAD has a moderate lesion and FFR was negative both in July of last year and April of this year. He came into the hospital with symptoms of unstable angina. He was advised cardiac catheterization after due discussion regarding risks, benefits, and options. This patient has history of abdominal aortic aneurysm with an Endovascular stent grafting and also history of lung cancer status post robotic surgery. He has quit smoking a few years ago. PROCEDURE NOTE: Under local anesthesia and strict aseptic precautions, a 6-[place] introducer was placed in the right femoral artery. Using a JL4 and 4.5 catheters, I performed selective coronary angiography of the LAD and the circumflex which came off from separate origins. A standard right Mable catheter was used for the right coronary artery. A pigtail catheter was used to check LV pressure but LV gram was not performed. The sheath was taken out and Angio-Seal device used to secure hemostasis and he was sent to the room in a stable condition. CARDIAC CATHETERIZATION FINDINGS: Left ventricular end-diastolic pressure was about 12 mmHg and on pullback assessment, there was no gradient across the aortic valve. CORONARY ANGIOGRAPHY FINDINGS: RIGHT CORONARY ARTERY: Technically large dominant vessel. Proximal portion that was stented is widely patent. Midportion has multiple areas of narrowing and calcification. The distal stent before bifurcation is also widely patent and the vessel bifurcates into PDA, PLV. Both the PLV, PDA branches as well as RCA have diffuse disease but no significant obstruction and good flow is noted. Angiographically, the vessel is same as that was seen in the 2019. LEFT ANTERIOR DESCENDING CORONARY ARTERY: This vessel has a 40% ostial lesion, extends along the anterior wall, gives off septal and diagonal branches, runs all the way to the apex. Moderate to heavy calcification. No critical stenosis. Angiographic appearance is similar to that was seen in 2019. LEFT POSTERIOR CIRCUMFLEX CORONARY ARTERY: Nondominant vessel. Proximal portion that was stented, is widely patent with good flow. The first obtuse marginal has a 99% stenosis. This was not attempted and comes off through the stented segment and this angiographic appearance is unchanged, but the proximal and mid circumflex that was stented is widely patent. The second obtuse marginal has a very good flow. The groove branch has diffuse disease unchanged from before. Angiographically, the circumflex looks better than it did in the January of 11/25/2018. LEFT VENTRICULOGRAM: Was not performed. FINAL IMPRESSION: This patient has a right dominant system. No significant disease in the RCA which has heavy calcification. Multiple areas of narrowing for the proximal stent as well as the distal stent before bifurcation, are widely patent. LAD has a 40% lesion. No significant progression of disease. Circumflex in the proximal and midportion is widely patent at the stented segment. Second obtuse marginal is patent but the first obtuse marginal has a 95% stenosis unchanged from before. The left ventricular end- diastolic pressure was 12 mmHg without any gradient across the aortic valve. RECOMMENDATIONS: Findings were reviewed with the patient and family. I explained to them that he will have angina because of diffuse nature of disease and also specifically first obtuse marginal has a tight lesion. We will therefore pursue medical therapy. No intervention necessary. Advised not to do strenuous activity but to pace himself and not push himself. He will be discharged tomorrow on medical therapy. The same regimen is advised which includes Imdur, Ranexa, beta blockers and also statin agents. MMODL / IJN: [id number] /
[2019-12-31] MEDS: ATORVASTATIN 80 MG TAB PO SCH (20:25)
[2019-12-31 21:25] VITALS: TEMP 98.1
[2020-01-01 06:47] LABS: Basophils % (A) 0 %; Eosinophils # (A) 0.2 k/uL (0-0.7); Eosinophils % (A) 3 %; HCT 38.6 % (39.0-53.0); HGB 12.8 gm/dL (13.0-17.5); Lymphocytes % (A) 15 %; MCH 30.5 pg (25.0-35.0); MCHC 33.1 g/dL (31.0-37.0); Mean Platelet Volume 7.4; Monocytes # (A) 0.3 k/uL (0-1.0); Monocytes % (A) 5 %; Neutrophils # (A) 5.1 k/uL (1.3-7.7); Neutrophils % (A) 75 %; Platelet Count 147 k/uL (150-450); RBC 4.19 m/uL (4.30-5.90); RDW 13.4 % (11.5-15.5); WBC 6.8 k/uL (3.8-10.6)
[2020-01-01] MEDS: amLODIPine 5 MG TAB PO SCH (07:54)
[2020-01-01] MEDS: lisinopriL 20 MG TAB PO SCH (07:54)
[2020-01-01] MEDS: RANOLAZINE 500 MG TAB.ER.12H PO SCH (07:54)
[2020-01-01] MEDS: FAMOTIDINE 20 MG TAB PO SCH (07:54)
[2020-01-01] MEDS: ASPIRIN 81 MG PO SCH (07:54)
[2020-01-01] MEDS: CLOPIDOGREL 75 MG TAB PO SCH (07:54)
[2020-01-01] MEDS: ISOSORBIDE MONONITRATE ER 60 MG TAB.ER.24H PO SCH (07:54)
[2020-01-01] MEDS: METOPROLOL SUCCINATE (ER) 100 MG TAB.ER.24H PO SCH (07:54)
[2020-01-01 08:45] VITALS: BP 132/72; PULSE 66; RESP 16
--- NOTE | 2020-01-01 10:08 | P.PN ---
Subjective Progress Note Date: 01/01/20 CHIEF COMPLAINT: Chest pain HISTORY OF PRESENT ILLNESS: Patient is status post cardiac catheterization with Dr. Thompson revealing no significant disease in the RCA. Multiple areas of narrowing for the proximal most as well as the distal stent before the bifurcat ion are widely patent. LAD has 40% stenosis. No significant progression of disease. Circumflex in the proximal and an portion is widely patent at the stented segment. Second obtuse marginal is patent but the first obtuse marginal has a 95% stenosis unchanged from before. Medical management was recommended. Patient currently denies chest pain or pressure. He denies shortness of breath. His vital signs are stable. He is hoping to be discharged home today. PHYSICAL EXAM: VITAL SIGNS: Reviewed. GENERAL: Well-developed in no acute distress. HEENT: Head is normocephalic. Pupils are equal, round. Sclerae anicteric. Mucous membranes of the mouth are moist. Neck supple. No JVD or thyromegaly LUNGS: Respirations even and unlabored. Lungs essentially clear to auscultation bilaterally. HEART: Regular rate and rhythm. S1 and S2 heard. ABDOMEN: Soft. Nondistended. Nontender. EXTREMITIES: Normal range of motion. No clubbing or cyanosis. Peripheral pulses intact. No lower extremity edema. Right groin cath site with pulse present. No hematoma noted. NEUROLOGIC: Awake and alert. Oriented x 3. ASSESSMENT: Unstable angina, status post cardiac catheterization Coronary artery disease with previous PCI to RCA and circumflex Hypertension Hyperlipidemia History of nicotine dependence, in remission PLAN: Continue current medication regimen Patient may be discharged home today from a cardiac perspective Patient to follow up outpatient with Dr. Thompson Nurse practitioner note has been reviewed by physician. Signing provider agrees with the documented findings, assessment, and plan of care. Objective - Vital Signs Vital signs: Vital Signs Temp 98.1 F 01/01/20 07:52 Pulse 66 01/01/20 08:48 Resp 16 01/01/20 08:48 BP 132/72 01/01/20 07:52 Pulse Ox 99 01/01/20 07:52 Intake & Output 12/31/19 01/01/20 01/01/20 18:59 06:59 18:59 Intake Total 50 300 Balance 50 300 Intake: IV 50 Oral 300 Other: Voiding Method Toilet Toilet Toilet # Voids 2 1 - Labs CBC & Chem 7: 10/26/20 06:02 12/30/19 08:46 Labs: Abnormal Lab Results - Last 24 Hours (Table) 01/01/20 Range/Units 06:02 RBC 4.19 L (4.30-5.90) m/uL Hgb 12.8 L (13.0-17.5) gm/dL Hct 38.6 L (39.0-53.0) % Plt Count 147 L (150-450) k/uL
[2020-01-01] MEDS: HEPARIN SOD,PORK IN 0.45% NACL 25,000 UNIT in 0.45% NACL 1 250ML.BAG IV SCH (11:19)
--- NOTE | 2020-01-01 12:52 | P.DS ---
Providers Date of admission: 12/30/19 00:27 Attending physician: Torrey Adams Consults: 12/30/19 00:27 Consult Physician Urgent Consulting Provider: Dionne Lopez Consult Reason/Comments: cp Do you want consulting provider notified?: Yes Primary care physician: Omar Luque [facility] Course: Diagnoses: -Unstable angina status post cardiac cath showing multiple narrowing of the previous stents in the RCA, about 40% lesion of the LAD, and change 95% stenosis of the first obtuse branch. [facility] recommended to continue with medical management and follow-up as an outpatient -Hypertension -Hyperlipidemia -GERD -History of coronary artery disease -History of right lung cancer -History of aortic aneurysm surgery -History of bilateral macular degeneration Hospital course: This is a pleasant 69 years old female with past medical history of coronary artery disease, hypertension, hyperlipidemia and other medical problems as above. Presents with ongoing chest pain. Patient was placed on heparin drip and evaluated by oncology specialist. He underwent cardiac cath which shows multiple vessel stenoses, please see above or the full cardiac cath report Eventually the oncology specialist recommended to continue with medical management, patient is expected to have ongoing chest pain for his stable angina. Patient was instructed to continue with same medication, he told me he has old prescription at home included aspirin and Plavix [facility] eventually cleared him for discharge Problems and management plan were discussed with the patient and he verbalized understanding and acceptance Patient was found stable and can be discharged home however he needs follow-up as an outpatient. Patient was instructed to follow up with PCP Dr. alva within one week and patient agrees. Also patient informed about his appointment with Dr. Thompson on 01/07 and he agrees with the appointments states she will follow-up Gen: patient is a AAOx3, no distress CVS: S1-S2, RRR, no murmur Lungs: B/L CTA, no wheezing Abdomen: soft, no distention, no tenderness, positive bowel sounds Extremity: no leg edema or induration Time spent more than 35 minutes Patient Condition at Discharge: Fair Plan - Discharge Summary Discharge Rx Participant: No New Discharge Prescriptions: Continue amLODIPine [Norvasc] 5 mg PO BID Metoprolol Succinate (ER) [Toprol XL] 100 mg PO DAILY Clopidogrel [Plavix] 75 mg PO DAILY #90 tab Atorvastatin [Lipitor] 80 mg PO HS Vitamin B Complex 1 cap PO HS Multivitamins, Thera [Multivitamin (formulary)] 1 tab PO HS Aspirin 81 mg PO DAILY Quinapril HCl 20 mg PO BID Nitroglycerin Sl Tabs [Nitrostat] 0.4 mg SUBLINGUAL Q5M PRN #30 tab PRN Reason: Chest Pain Famotidine [Pepcid] 20 mg PO BID Isosorbide Mononitrate ER [Imdur] 60 mg PO DAILY Ranolazine [Ranexa] 500 mg PO BID Discharge Medication List Metoprolol Succinate (ER) [Toprol XL] 100 mg PO DAILY 04/29/15 [History] amLODIPine [Norvasc] 5 mg PO BID 04/29/15 [History] Clopidogrel [Plavix] 75 mg PO DAILY #90 tab 05/01/15 [Rx] Atorvastatin [Lipitor] 80 mg PO HS 12/27/18 [History] Vitamin B Complex 1 cap PO HS 12/27/18 [History] Aspirin 81 mg PO DAILY 01/15/19 [History] Multivitamins, Thera [Multivitamin (formulary)] 1 tab PO HS 01/15/19 [History] Quinapril HCl 20 mg PO BID 01/15/19 [History] Nitroglycerin Sl Tabs [Nitrostat] 0.4 mg SUBLINGUAL Q5M PRN #30 tab 01/19/19 [Rx] Famotidine [Pepcid] 20 mg PO BID 12/30/19 [History] Isosorbide Mononitrate ER [Imdur] 60 mg PO DAILY 12/30/19 [History] Ranolazine [Ranexa] 500 mg PO BID 12/30/19 [History] Follow up Appointment(s)/Referral(s): Teresa Thompson MD [STAFF PHYSICIAN] - 01/08/20 3:15 pm (@ main office in [place]. ) Omar Luque MD [Primary Care Provider] - 1-2 days
--- NOTE | 2020-01-06 14:00 | ECHOF ---
Referral Reason:Chest pain MEASUREMENTS -------- HEIGHT: 175.3 cm WEIGHT: 93.0 kg BP: IVSd: 0.9 cm (0.6 - 1.1) LVIDd: 6.1 cm (3.9 - 5.3) LVPWd: 1.3 cm (0.6 - 1.1) IVSs: 1.8 cm LVIDs: 4.1 cm LVPWs: 1.7 cm LA Diam: 4.0 cm (2.7 - 3.8) RVIDd: 4.0 cm (< 3.3) Ao Diam: 4.1 cm (2.0 - 3.7) LA Diam: 4.8 cm (2.7 - 3.8) AV Cusp: 2.3 cm (1.5 - 2.6) EPSS: 0.3 cm MV E Abdelrahman: 0.52 m/s MV DecT: 207 ms MV A Abdelrahman: 0.85 m/s MV E/A Ratio: 0.61 RAP: 5.00 mmHg RVSP: 15.84 mmHg MV EF SLOPE: 81.21 mm/s (70 - 150) MV EXCURSION: 19.52 mm (> 18.000) FINDINGS -------- Sinus rhythm. This was a techncally difficult study with suboptimal views, , Lumason utilized for enhancement of im ages. The left ventricular size is normal. Overall left ventricular systolic function is low-normal with, an EF between 50 - 55 %. The right ventricle is normal in size. The left atrial size is normal. The right atrial size is normal. 5.0mg OF Lumason UTLIZED: 2 OR MORE WALL SEGMENTS NOT VISUALIZED. There is mild aortic regurgitation. Mild mitral regurgitation is present. Mild tricuspid regurgitation present. Right ventricular systolic pressure is normal at < 35 mmHg. There is no pulmonic regurgitation present. The aortic root size is normal. There is no pericardial effusion. CONCLUSIONS -------- 1. This was a techncally difficult study with suboptimal views, , Lumason utilized for enhancement of images. 2. The left ventricular size is normal. 3. Overall left ventricular systolic function is low-normal with, an EF between 50 - 55 %. 4. The right ventricle is normal in size. 5. The left atrial size is normal. 6. The right atrial size is normal. 7. 5.0mg OF Lumason UTLIZED: 2 OR MORE WALL SEGMENTS NOT VISUALIZED. 8. There is mild aortic regurgitation. 9. Mild mitral regurgitation is present. 10. Mild tricuspid regurgitation present. 11. There is no pericardial effusion. BLAST HOLE DRILLER: Soheila Moreno RDCS
== END 2020-01-01 13:02 ==
LOC: EC 00:11 → 3NCARDOBS 00:27
PROVIDERS: ADMIT Hospitalist; ATTEND Hospitalist
DX: I25.110 Atherosclerotic heart disease of native coronary artery with unstable angina pectoris (principal); T82.857A Stenosis of other cardiac prosthetic devices, implants and grafts, initial encounter; R07.89 Other chest pain; I10 Essential (primary) hypertension; E78.5 Hyperlipidemia, unspecified; K21.9 Gastro-esophageal reflux disease without esophagitis; H35.30 Unspecified macular degeneration; M19.90 Unspecified osteoarthritis, unspecified site; I71.9 Aortic aneurysm of unspecified site, without rupture; I25.2 Old myocardial infarction; E78.00 Pure hypercholesterolemia, unspecified; Z85.118 Personal history of other malignant neoplasm of bronchus and lung; Z95.5 Presence of coronary angioplasty implant and graft; Z79.899 Other long term (current) drug therapy; Z79.82 Long term (current) use of aspirin; Z86.69 Personal history of other diseases of the nervous system and sense organs; Z90.2 Acquired absence of lung [part of]; Z95.828 Presence of other vascular implants and grafts; Z98.41 Cataract extraction status, right eye; Z98.42 Cataract extraction status, left eye; Z96.1 Presence of intraocular lens; Z98.890 Other specified postprocedural states; Z87.891 Personal history of nicotine dependence; Z79.02 Long term (current) use of antithrombotics/antiplatelets; Z80.3 Family history of malignant neoplasm of breast; Z82.49 Family history of ischemic heart disease and other diseases of the circulatory system; Z84.2 Family history of other diseases of the genitourinary system
CPT/HCPCS: 93005 ×3; 96365; 96376; 99285; 93458; 80061; 80048; 84484; 85025 ×3; 85730 ×2; G0378 ×3; C8929; C1769 ×3; C1760; C1894; J2250; J1644 ×2; J2001; Q9950; Q9967; 93306

== ENCOUNTER 2022-10-24 00:49 | Inpatient (IN) | payer MEDICARE ==
[2022-10-24 01:40] LABS: Basophils % (A) 0 %; Eosinophils # (A) 0.2 k/uL (0-0.7); Eosinophils % (A) 3 %; HCT 36.7 % (39.0-53.0); HGB 12.5 gm/dL (13.0-17.5); Lymphocytes # (A) 1.2 k/uL (1.0-4.8); Lymphocytes % (A) 16 %; MCH 30.6 pg (25.0-35.0); MCHC 34.2 g/dL (31.0-37.0); MCV 89.7 fL (80.0-100.0); Mean Platelet Volume 7.5; Monocytes # (A) 0.7 k/uL (0-1.0); Monocytes % (A) 9 %; Neutrophils # (A) 5.3 k/uL (1.3-7.7); Neutrophils % (A) 70 %; Platelet Count 136 k/uL (150-450); RBC 4.09 m/uL (4.30-5.90); RDW 14.7 % (11.5-15.5); WBC 7.5 k/uL (3.8-10.6)
--- NOTE | 2022-10-24 01:42 | ED ---
General Adult HPI - General Chief complaint: Chest Pain Stated complaint: Chest pain Time Seen by Provider: 10/24/22 00:49 Source: EMS Mode of arrival: EMS Limitations: no limitations - History of Present Illness Initial comments: This is a 72-year-old male with a significant past medical history including hypertension as well as 8 previous cardiac stents as well as a previous AAA with stent since emergency department via EMS for central chest pain. The patient stated that the chest pain woke him up out of a sleep and stated that the chest pain was centered in the center of his chest without radiation. The patient denied any nausea, vomiting as well as any diaphoresis. The patient did state that he took a subungual nitroglycerin at home and stated this had improved his pain but he had continued sensation there. The patient on arrival stated that his pain was significantly improved. The patient denied any shortness of breath, difficulty in breathing as well as any significant chest pain currently. The patient was otherwise resting in bed comfortably. - Related Data Home Medications Medication Instructions Recorded Confirmed Metoprolol Succinate (ER) [Toprol 100 mg PO DAILY 04/29/15 12/30/19 XL] amLODIPine [Norvasc] 5 mg PO BID 04/29/15 12/30/19 Atorvastatin [Lipitor] 80 mg PO HS 12/27/18 12/30/19 Vitamin B Complex 1 cap PO HS 12/27/18 12/30/19 Aspirin 81 mg PO DAILY 01/15/19 12/30/19 Multivitamins, Thera [Multivitamin 1 tab PO HS 01/15/19 12/30/19 (formulary)] Quinapril HCl 20 mg PO BID 01/15/19 12/30/19 Famotidine [Pepcid] 20 mg PO BID 12/30/19 12/30/19 Isosorbide Mononitrate ER [Imdur] 60 mg PO DAILY 12/30/19 12/30/19 Ranolazine [Ranexa] 500 mg PO BID 12/30/19 12/30/19 Previous Rx's Medication Instructions Recorded Clopidogrel [Plavix] 75 mg PO DAILY #90 tab 05/01/15 Nitroglycerin Sl Tabs [Nitrostat] 0.4 mg SUBLINGUAL Q5M PRN #30 tab 01/19/19 Allergies Allergy/AdvReac Type Severity Reaction Status Date / Time No Known Allergies Allergy Verified 12/30/19 09:57 Review of Systems ROS Statement: Those systems with pertinent positive or pertinent negative responses have been documented in the HPI. ROS Other: All systems not noted in ROS Statement are negative. Past Medical History Past Medical History: Coronary Artery Disease (CAD), Cancer, Chest Pain / Angina, Eye Disorder, GERD/Reflux, Hyperlipidemia, Hypertension Additional Past Medical History / Comment(s): R lung cancer with surgery in 2010, aortic aneurysm with surgery 2010, bilateral macular degeneration/bilateral retinal bleeds-gets eye injections q 5 weeks. History of Any Multi-Drug Resistant Organisms: None Reported Past Surgical History: Heart Catheterization, Heart Catheterization With Stent Additional Past Surgical History / Comment(s): 05/01/15 PCI with stent to mid RCA radial approach, 2010 RIGHT UPPER LOBECTOMY, 2010 AORTIC ANEURYSM REPAIR- WITH STENT, PTCA x 3 vessels in 1990, bilateral cartaract removal with lens implants, COLONOSCOPY. Past Anesthesia/Blood Transfusion Reactions: No Reported Reaction Date of Last Stent Placement:: 05/01/15 Past Psychological History: No Psychological Hx Reported Additional Psychological History / Comment(s): Pt resides with his spouse. He is independent. Smoking Status: Former smoker Past Alcohol Use History: Occasional Additional Past Alcohol Use History / Comment(s): Pt started smoking in 1964 and was a 2ppd smoker of cigarettes and also smoked pipe. He quit in 2010 Past Drug Use History: None Reported - Past Family History Mother Family Medical History: Cancer, Myocardial Infarction ([place]) Additional Family Medical History / Comment(s): BREAST CANCER. Mother at age 78 yrs of a [place] Father Family Medical History: Cancer, Prostate Disorder Additional Family Medical History / Comment(s): Father had prostate problems- possibly cancer of prostate and/or colon. He at age 65 yrs. General Exam Limitations: no limitations General appearance: alert, in no apparent distress Head exam: Present: atraumatic, normocephalic, normal inspection Eye exam: Present: normal appearance, PERRL Pupils: Present: normal accommodation ENT exam: Present: normal exam, normal oropharynx, mucous membranes moist Neck exam: Present: normal inspection, full ROM Respiratory exam: Present: normal lung sounds bilaterally. Absent: respiratory distress, chest wall tenderness Cardiovascular Exam: Present: regular rate, normal rhythm, normal heart sounds GI/Abdominal exam: Present: soft, normal bowel sounds Extremities exam: Present: normal inspection, full ROM Back exam: Present: normal inspection, full ROM Neurological exam: Present: alert, oriented X3, CN II-XII intact Psychiatric exam: Present: normal affect, normal mood Skin exam: Present: warm, dry Course Vital Signs 10/24/22 01:13 Temperature 98.6 F Pulse Rate 84 Respiratory 18 Rate Blood Pressure 165/85 O2 Sat by Pulse 98 Oximetry EKG Findings - EKG Comments: EKG Findings:: An EKG was obtained and was interpreted by myself showing a rate of 84, CO interval 159, QR hinduism of 129 and QTC of 416. This EKG showed a normal sinus rhythm with no ST segment elevation or depression noted. There was a right bundle branch block present. Medical Decision Making - Medical Decision Making Was pt. sent in by a medical professional or institution ([facility], CABIN WORKER, urgent care, hospital, or [place] health care facility...) When possible be specific @ -No Did you speak to anyone other than the patient for history (EMS, parent, family, police, friend...)? What history was obtained from this source @ -No Did you review nursing and triage notes (agree or disagree)? Why? @ -I reviewed and agree with nursing and triage notes Were old charts reviewed (outside hosp., previous admission, EMS record, old EKG, old radiological studies, urgent care reports/EKG's, [place] health care facility records)? Report findings @ -No old charts were reviewed Differential Diagnosis (chest pain, altered mental status, abdominal pain women, abdominal pain men, vaginal bleeding, weakness, fever, dyspnea, syncope, headache, dizziness, GI bleed, back pain, seizure, CVA, palpatations, mental health)? @ -ACS, pneumonia, pneumothorax EKG interpreted by me (3pts min.). @ -As above X-rays interpreted by me (1pt min.). @ -Chest x-ray was obtained and was interpreted by myself showing no acute process. CT interpreted by me (1pt min.). @ -None done U/S interpreted by me (1pt. min.). @ -None done What testing was considered but not performed or refused? (CT, X-rays, U/S, labs)? Why? @ -None What meds were considered but not given or refused? Why? @ -None Did you discuss the management of the patient with other professionals (professionals i.e. , PA, CABIN WORKER, lab, RT, psych nurse, social media coordinator, music librarian, teacher, first officer and flight instructor, pillowcase cleaner)? Give summary @ -Yes, dating physician was contacted regarding the patient admission to observation. Was smoking cessation discussed for >3mins.? @ -No Was critical care preformed (if so, how long)? @ -No Were there social determinants of health that impacted care today? How? (Homelessness, low income, unemployed, alcoholism, drug addiction, transportation, low edu. Level, literacy, decrease access to med. care, detention, rehab)? @ -No Was there de-escalation of care discussed even if they declined (Discuss DNR or withdrawal of care, Hospice)? DNR status @ -No What co-morbidities impacted this encounter? (DM, HTN, Smoking, COPD, CAD, Cancer, CVA, ARF, Chemo, Hep., AIDS, mental health diagnosis, sleep apnea, morbid obesity)? @ -Hypertension, 8 previous cardiac stents, AAA repair Was patient admitted / discharged? Hospital course, mention meds given and route, prescriptions, significant lab abnormalities, going to OR and other pertinent info. @ -The patient was seen and evaluated emergency department. Physical exam, the patient was resting in bed without any acute distress. Vital signs admission were stable. All laboratory workup and imaging were within normal limits and negative. Due to the patient's significant past medical history and risk factors, the patient will be placed in observation for continued monitoring observation by cardiology. The patient was agreeable to this plan and was placed in observation in stable condition. Undiagnosed new problem with uncertain prognosis? @ -No Drug Therapy requiring intensive monitoring for toxicity (Heparin, Nitro, Insulin, Cardizem)? @ -No Were any procedures done? @ -No Diagnosis/symptom? @ -Chest pain, rule out ACS Acute, or Chronic, or Acute on Chronic? @ -Acute Uncomplicated (without systemic symptoms) or Complicated (systemic symptoms)? @ -Uncomplicated Side effects of treatment? @ -No Exacerbation, Progression, or Severe Exacerbation? @ -No Poses a threat to life or bodily function? How? (Chest pain, [place], [place], pneumonia, PE, COPD, DKA, ARF, appy, cholecystitis, CVA, Diverticulitis, Homicidal, Suicidal, threat to staff... and all critical care pts) @ -Yes, continued chest pain can lead to a [facility] department damage and possible . - Lab Data Result diagrams: 10/24/22 01:10/24/22 01:22 Lab Results 10/24/22 10/24/22 10/24/22 Range/Units 01:22 01: 01:22 WBC 7.5 (3.8-10.6) k/uL RBC 4.09 L (4.30-5.90) m/uL Hgb 12.5 L (13.0-17.5) gm/dL Hct 36.7 L (39.0-53.0) % MCV 89.7 (80.0-100.0) fL MCH 30.6 (25.0-35.0) pg MCHC 34.2 (31.0-37.0) g/dL RDW 14.7 (11.5-15.5) % Plt Count 136 L (150-450) k/uL MPV 7.5 Neutrophils % 70 % Lymphocytes % 16 % Monocytes % 9 % Eosinophils % 3 % Basophils % 0 % Neutrophils # 5.3 (1.3-7.7) k/uL Lymphocytes # 1.2 (1.0-4.8) k/uL Monocytes # 0.7 (0-1.0) k/uL Eosinophils # 0.2 (0-0.7) k/uL Basophils # 0.0 (0-0.2) k/uL PT 9.3 (9.0-12.0) sec INR 0.9 (<1.2) APTT 24.4 (22.0-30.0) sec Sodium 140 (137-145) mmol/L Potassium 3.6 (3.5-5.1) mmol/L Chloride 108 H (98-107) mmol/L Carbon Dioxide 25 (22-30) mmol/L Anion Gap 7 mmol/L BUN 18 (9-20) mg/dL Creatinine 0.60 L (0.66-1.25) mg/dL Est GFR (CKD-EPI)AfAm >90 (>60 ml/min/1.73 sqM) Est GFR (CKD-EPI)NonAf >90 (>60 ml/min/1.73 sqM) Glucose 99 (74-99) mg/dL Calcium 8.7 (8.4-10.2) mg/dL Magnesium 2.3 (1.6-2.3) mg/dL Total Bilirubin 0.5 (0.2-1.3) mg/dL AST 27 (17-59) U/L ALT 25 (4-49) U/L Alkaline Phosphatase 105 (38-126) U/L Troponin I (0.000-0.034) ng/mL NT-Pro-B Natriuret Pep 67 pg/mL Total Protein 6.8 (6.3-8.2) g/dL Albumin 3.9 (3.5-5.0) g/dL Lipase 144 (23-300) U/L 10/24/22 Range/Units 01:22 WBC (3.8-10.6) k/uL RBC (4.30-5.90) m/uL Hgb (13.0-17.5) gm/dL Hct (39.0-53.0) % MCV (80.0-100.0) fL MCH (25.0-35.0) pg MCHC (31.0-37.0) g/dL RDW (11.5-15.5) % Plt Count (150-450) k/uL MPV Neutrophils % % Lymphocytes % % Monocytes % % Eosinophils % % Basophils % % Neutrophils # (1.3-7.7) k/uL Lymphocytes # (1.0-4.8) k/uL Monocytes # (0-1.0) k/uL Eosinophils # (0-0.7) k/uL Basophils # (0-0.2) k/uL PT (9.0-12.0) sec INR (<1.2) APTT (22.0-30.0) sec Sodium (137-145) mmol/L Potassium (3.5-5.1) mmol/L Chloride (98-107) mmol/L Carbon Dioxide (22-30) mmol/L Anion Gap mmol/L BUN (9-20) mg/dL Creatinine (0.66-1.25) mg/dL Est GFR (CKD-EPI)AfAm (>60 ml/min/1.73 sqM) Est GFR (CKD-EPI)NonAf (>60 ml/min/1.73 sqM) Glucose (74-99) mg/dL Calcium (8.4-10.2) mg/dL Magnesium (1.6-2.3) mg/dL Total Bilirubin (0.2-1.3) mg/dL AST (17-59) U/L ALT (4-49) U/L Alkaline Phosphatase (38-126) U/L Troponin I <0.012 (0.000-0.034) ng/mL NT-Pro-B Natriuret Pep pg/mL Total Protein (6.3-8.2) g/dL Albumin (3.5-5.0) g/dL Lipase (23-300) U/L Disposition Clinical Impression: Chest pain Disposition: ADMITTED IP TO THIS [facility] Condition: Stable Is patient prescribed a controlled substance at d/c from ED?: No Referrals: Omar Luque MD [Primary Care Provider] - 1-2 days Time of Disposition: 02:45 Decision to Admit Reason: Admit from EC Decision Date: 10/24/22 Decision Time: 02:45
[2022-10-24 01:48] LABS: INR 0.9 (<1.2); Partial Thromboplastin Time 24.4 sec (22.0-30.0); Prothrombin Time 9.3 sec (9.0-12.0)
[2022-10-24 02:11] LABS: ALT 25 U/L (4-49); AST 27 U/L (17-59); African American GFR (CKD) >90 (>60 ml/min/1.73 sqM); Albumin 3.9 g/dL (3.5-5.0); Alkaline Phosphatase 105 U/L (38-126); Anion Gap 7 mmol/L; Blood Urea Nitrogen 18 mg/dL (9-20); Calcium 8.7 mg/dL (8.4-10.2); Carbon Dioxide 25 mmol/L (22-30); Chloride 108 mmol/L (98-107); Glucose 99 mg/dL (74-99); Lipase 144 U/L (23-300); Magnesium 2.3 mg/dL (1.6-2.3); Non-African American GFR(CKD) >90 (>60 ml/min/1.73 sqM); Potassium 3.6 mmol/L (3.5-5.1); Sodium 140 mmol/L (137-145); Total Bilirubin 0.5 mg/dL (0.2-1.3); Total Protein 6.8 g/dL (6.3-8.2)
[2022-10-24 02:19] LABS: NT-Pro-B-Type Natriuretic Pept 67 pg/mL
--- NOTE | 2022-10-24 02:49 | XR ---
EXAMINATION TYPE: XR chest 2V DATE OF EXAM: 10/24/2022 1:37 AM COMPARISON: Chest radiographs from 07/21/2018 TECHNIQUE: XR chest 2V Frontal and lateral views of the chest. CLINICAL INDICATION:Male, 72 years old with history of CP; FINDINGS: Lungs/Pleura: There is no evidence of pleural effusion, focal consolidation, or pneumothorax. Chroni c senescent parenchymal change. Pulmonary vascularity: Unremarkable. Heart/mediastinum: Cardiomediastinal silhouette is unremarkable. Musculoskeletal: Multiple level degenerative disc disease changes seen throughout the spine. IMPRESSION: No acute cardiopulmonary disease/process.
[2022-10-24] MEDS ORDERED: NALOXONE 0.4 MG/ML 1 ML VIAL IV PRN (02:57)
--- NOTE | 2022-10-24 10:32 | P.CRDCN ---
History of Present Illness Consult date: 10/24/22 Chief complaint: chest pain History of present illness: The patient is a pleasant 72-year-old gentleman who sees Dr. Thompson irregularly with a past medical history significant for extensive CAD was prior angioplasty and stenting multiple times in the past as well as hypertension and dyslipidemia. The last heart catheterization was performed and showed intermediate disease involving the right coronary artery and left anterior descending artery with critical disease involving large OM branch. Subsequently the patient underwent PCI of that appointment [facility] according to beside that the heart catheterization revealed extremely calcified right and left coronary system. The patient was in his usual state of health yesterday w hen he woke up from sleep complaining of discomfort in the middle of the chest as a sharp kind of discomfort was no radiation to the arms or neck or shoulders or back inhis symptoms of shortness of breath or sweating or dizziness or presyncope or syncope. He decided to come to the hospital he took nitroglycerin with improvement in the discomfort. When he was seen and evaluated this morning he stated that the chest discomfort has improved but he still have about 1/10 discomfort in the chest. He stated that walking to the bathroom was bringing the pain again. No shortness of breath at this point. The EKG showed sinus mechanism was no significant ST or T-wave abnormalities. The first set of troponin came in to be unremarkable. No further sets of troponin ordered. Also the chest x-ray did not show any acute abnormalities. Examination is remarkable for stable vital signs was mild sinus tachycardia and clear breathing sounds bilaterally and no lower extremity edema noted. The last echo from 2019 revealed normal LV systolic function Assessment Chest discomfort concerning for angina [place] extensive CAD as described above Hypertension Dyslipidemia Plan Restart the patient on his antianginal medications Restart the patient on antiplatelet medications Obtain further cardiac workup including serial cardiac enzymes Follow-up with the patient Past Medical History Past Medical History: Coronary Artery Disease (CAD), Cancer, Chest Pain / A ngina, Eye Disorder, GERD/Reflux, Hyperlipidemia, Hypertension Additional Past Medical History / Comment(s): R lung cancer with surgery in 2010, aortic aneurysm with surgery 2010, bilateral macular degeneration/bilateral retinal bleeds-gets eye injections q 5 weeks. History of Any Multi-Drug Resistant Organisms: None Reported Past Surgical History: Heart Catheterization, Heart Catheterization With Stent Additional Past Surgical History / Comment(s): 2/24/16 PCI with stent to mid RCA radial approach, 2010 RIGHT UPPER LOBECTOMY, 2010 AORTIC ANEURYSM REPAIR- WITH STENT, PTCA x 3 vessels in 1990, bilateral cartaract removal with lens implants, COLONOSCOPY. Past Anesthesia/Blood Transfusion Reactions: No Reported Reaction Date of Last Stent Placement:: 05/01/15 Smoking Status: Former smoker - Past Family History Mother Family Medical History: Cancer, Myocardial Infarction ([place]) Additional Family Medical History / Comment(s): BREAST CANCER. Mother at age 78 yrs of a [place] Father Family Medical History: Cancer, Prostate Disorder Additional Family Medical History / Comment(s): Father had prostate problems- possibly cancer of prostate and/or colon. He at age 65 yrs. Medications and Allergies Home Medications Medication Instructions Recorded Confirmed Type Metoprolol Succinate (ER) [Toprol 100 mg PO DAILY 04/29/15 12/30/19 History XL] amLODIPine [Norvasc] 5 mg PO BID 04/29/15 12/30/19 History Clopidogrel [Plavix] 75 mg PO DAILY #90 tab 05/01/15 12/30/19 Rx Atorvastatin [Lipitor] 80 mg PO HS 12/27/18 12/30/19 History Vitamin B Complex 1 cap PO HS 12/27/18 12/30/19 History Aspirin 81 mg PO DAILY 01/15/19 12/30/19 History Multivitamins, Thera [Multivitamin 1 tab PO HS 01/15/19 12/30/19 History (formulary)] Quinapril HCl 20 mg PO BID 01/15/19 12/30/19 History Nitroglycerin Sl Tabs [Nitrostat] 0.4 mg SUBLINGUAL Q5M PRN #30 tab 01/19/19 12/30/19 Rx Famotidine [Pepcid] 20 mg PO BID 12/30/19 12/30/19 History Isosorbide Mononitrate ER [Imdur] 60 mg PO DAILY 12/30/19 12/30/19 History Ranolazine [Ranexa] 500 mg PO BID 12/30/19 12/30/19 History Allergies Allergy/AdvReac Type Severity Reaction Status Date / Time No Known Allergies Allergy Verified 12/30/19 09:57 Physical Exam Vitals: Vital Signs Temp Pulse Pulse Resp BP BP Pulse Ox 10/24/22 07:00 98.1 F 80 67 18 147/93 151/78 95 10/24/22 05:03 82 18 151/85 97 10/24/22 01:13 98.6 F 84 18 165/85 98 Intake and Output 10/23/22 10/24/22 10/24/22 22:59 06:59 14:59 Other: # Voids 0 Weight 94.801 kg 94.801 kg Results 10/24/22 01:22 10/24/22 01:22 Cardiac Enzymes 10/24/22 10/24/22 Range/Units 01:22 01:22 AST 27 (17-59) U/L Troponin I <0.012 (0.000-0.034) ng/mL Coagulation 10/24/22 Range/Units 01:22 PT 9.3 (9.0-12.0) sec APTT 24.4 (22.0-30.0) sec CBC 10/24/22 Range/Units 01:22 WBC 7.5 (3.8-10.6) k/uL RBC 4.09 L (4.30-5.90) m/uL Hgb 12.5 L (13.0-17.5) gm/dL Hct 36.7 L (39.0-53.0) % Plt Count 136 L (150-450) k/uL Comprehensive Metabolic Panel 10/24/22 Range/Units 01:22 Sodium 140 (137-145) mmol/L Potassium 3.6 (3.5-5.1) mmol/L Chloride 108 H (98-107) mmol/L Carbon Dioxide 25 (22-30) mmol/L BUN 18 (9-20) mg/dL Creatinine 0.60 L (0.66-1.25) mg/dL Glucose 99 (74-99) mg/dL Calcium 8.7 (8.4-10.2) mg/dL AST 27 (17-59) U/L ALT 25 (4-49) U/L Alkaline Phosphatase 105 (38-126) U/L Total Protein 6.8 (6.3-8.2) g/dL Albumin 3.9 (3.5-5.0) g/dL Current Medications Generic Name Dose Route Start Last Admin Trade Name Freq PRN Reason Stop Dose Admin Naloxone HCl 0.2 mg 10/24/22 02:57 Naloxone 0.4 Mg/Ml 1 Ml Vial IV Q2M PRN Opioid Reversal Intake and Output 10/23/22 10/24/22 10/24/22 22:59 06:59 14:59 Other: # Voids 0 Weight 94.801 kg 94.801 kg Patient Weight 10/25/22 06:59 Weight 94.801 kg 10/24/22 01:22 10/24/22 01:22
[2022-10-24] MEDS: METOPROLOL SUCCINATE (ER) 100 MG TAB.ER.24H PO SCH (15:12)
[2022-10-24] MEDS: CLOPIDOGREL 75 MG TAB PO SCH (15:12)
--- NOTE | 2022-10-24 19:09 | P.HPIM ---
History of Present Illness H&P Date: 10/24/22 Chief Complaint: Chest pain 72-year-old male with a significant past medical history including hypertension as well as 8 previous cardiac stents as well as a previous AAA with stent since emergency department via EMS for central chest pain. The patient stated that the chest pain woke him up out of a sleep and stated that the chest pain was centered in the center of his chest without radiation. The patient denied any nausea, vomiting as well as any diaphoresis. The patient did state that he took a subungual nitroglycerin at home and stated this had improved his pain but he had continued sensation there. The patient on arrival stated that his pain was significantly improved. The patient denied any shortness of breath, difficulty in breathing as well as any significant chest pain currently. The patient was otherwise resting in bed comfortably. EKG reveals rate of 84, NC interval of 159, no acute ST or T-wave changes, right bundle branch block Chest x-ray does not reveal any acute process Blood work reveals WBC 7.5, hemoglobin of 12.5, platelet count of 136, sodium 146, potassium 3.6, BUN/creatinine of 18/0.6 and blood glucose of 99, troponin of less than 0.012 Review of Systems REVIEW OF SYSTEMS: CONSTITUTIONAL: No fever, no malaise, no fatigue. HEENT: No recent visual problems or hearing problems. Denied any sore throat. CARDIOVASCULAR: No chest pain, orthopnea, PND, no palpitations, no syncope. PULMONARY: No shortness of breath, no cough, no hemoptysis. GASTROINTESTINAL: No diarrhea, no nausea, no vomiting, no abdominal pain. NEUROLOGICAL: No headaches, no weakness, no numbness. HEMATOLOGICAL: Denies any bleeding or petechiae. GENITOURINARY: Denies any burning micturition, frequency, or urgency. MUSCULOSKELETAL/RHEUMATOLOGICAL: Denies any joint pain, swelling, or any muscle pain. ENDOCRINE: Denies any polyuria or polydipsia. The rest of the 14-point review of systems is negative. Past Medical History Past Medical History: Coronary Artery Disease (CAD), Cancer, Chest Pain / Angina, Eye Disorder, GERD/Reflux, Hyperlipidemia, Hypertension Additional Past Medical History / Comment(s): R lung cancer with surgery in 2010, aortic aneurysm with surgery 2010, bilateral macular degeneration/bilate ral retinal bleeds-gets eye injections q 5 weeks. History of Any Multi-Drug Resistant Organisms: None Reported Past Surgical History: Heart Catheterization, Heart Catheterization With Stent Additional Past Surgical History / Comment(s): 05/01/15 PCI with stent to mid RCA radial approach, 2010 RIGHT UPPER LOBECTOMY, 2010 AORTIC ANEURYSM REPAIR- WITH STENT, PTCA x 3 vessels in 1990, bilateral cartaract removal with lens i mplants, COLONOSCOPY. Past Anesthesia/Blood Transfusion Reactions: No Reported Reaction Date of Last Stent Placement:: 05/01/15 Smoking Status: Former smoker - Past Family History Mother Family Medical History: Cancer, Myocardial Infarction (MD) Additional Family Medical History / Comment(s): BREAST CANCER. Mother at age 78 yrs of a MD Father Family Medical History: Cancer, Prostate Disorder Additional Family Medical History / Comment(s): Father had prostate problems- possibly cancer of prostate and/or colon. He at age 65 yrs. Medications and Allergies Home Medications Medication Instructions Recorded Confirmed Type Metoprolol Succinate (ER) [Toprol 100 mg PO DAILY 04/29/15 10/24/22 History XL] amLODIPine [Norvasc] 5 mg PO BID 04/29/15 10/24/22 History Clopidogrel [Plavix] 75 mg PO DAILY #90 tab 05/01/15 10/24/22 Rx Atorvastatin [Lipitor] 80 mg PO HS 12/27/18 10/24/22 History Vitamin B Complex 1 cap PO HS 12/27/18 10/24/22 History Aspirin 81 mg PO DAILY 01/15/19 10/24/22 History Multivitamins, Thera [Multivitamin 1 tab PO HS 01/15/19 10/24/22 History (formulary)] Famotidine [Pepcid] 20 mg PO BID 12/30/19 10/24/22 History Isosorbide Mononitrate ER [Imdur] 60 mg PO DAILY 12/30/19 10/24/22 History Ranolazine [Ranexa] 500 mg PO BID 12/30/19 10/24/22 History Prednisolone Acetate/Pf 1 drop BOTH EYES DAILY 10/24/22 10/24/22 History [Prednisolone Acet 1% Eye Drop] Vit C/E/Zn/Coppr/Lutein/Zeaxan 1 cap PO BID 10/24/22 10/24/22 History [Preservision Areds 2 Softgel] lisinopriL [Zestril] 20 mg PO BID 10/24/22 10/24/22 History prednisoLONE ACETATE 1% OPHTH 1 drop LEFT EYE HS 10/24/22 10/24/22 History [Pred Forte 1%] Allergies Allergy/AdvReac Type Severity Reaction Status Date / Time No Known Allergies Allergy Verified 10/24/22 12:15 Physical Exam Vitals: Vital Signs Temp Pulse Pulse Resp BP BP Pulse Ox 10/24/22 07:00 98.1 F 80 67 18 147/93 151/78 95 10/24/22 05:03 82 18 151/85 97 10/24/22 01:13 98.6 F 84 18 165/85 98 Intake and Output 10/23/22 10/24/22 10/24/22 22:59 06:59 14:59 Other: # Voids 0 Weight 94.801 kg 94.801 kg General appearance: alert, in no apparent distress Head exam: Present: atraumatic, normocephalic, normal inspection Eye exam: Present: normal appearance, PERRL Pupils: Present: normal accommodation ENT exam: Present: normal exam, normal oropharynx, mucous membranes moist Neck exam: Present: normal inspection, full ROM Respiratory exam: Present: normal lung sounds bilaterally. Absent: respiratory distress, chest wall tenderness Cardiovascular Exam: Present: regular rate, normal rhythm, normal heart sounds GI/Abdominal exam: Present: soft, normal bowel sounds Extremities exam: Present: normal inspection, full ROM Back exam: Present: normal inspection, full ROM Neurological exam: Present: alert, oriented X3, CN II-XII intact Psychiatric exam: Present: normal affect, normal mood Skin exam: Present: warm, dry Results CBC & Chem 7: 10/24/22 01:22 10/24/22 01:22 Labs: Abnormal Lab Results - Last 24 Hours (Table) 10/24/22 10/24/22 Range/Units 01:22 01:22 RBC 4.09 L (4.30-5.90) m/uL Hgb 12.5 L (13.0-17.5) gm/dL Hct 36.7 L (39.0-53.0) % Plt Count 136 L (150-450) k/uL Chloride 108 H (98-107) mmol/L Creatinine 0.60 L (0.66-1.25) mg/dL Assessment and Plan Assessment: 1. Chest discomfort/unstable angina - Patient has extensive history of CAD as described above - We will admit to telemetry; monitor EKG and cardiac enzymes - 2-D echo Consult cardiology for further recommendations - Continue with aspirin, statin, Plavix, beta blockers and Imdur 2. Hypertension; Imdur 60 mg daily, lisinopril 20 mg twice a day, Norvasc 5 mg twice a day and metoprolol 100 mg daily 3. Hyperlipidemia; Lipitor 80 mg by mouth daily at bedtime 4. Gastroesophageal reflux disease; Pepcid 20 mg twice a day DVT prophylaxis; SCDs CODE STATUS; full code
[2022-10-24] MEDS: amLODIPine 5 MG TAB PO SCH (20:27)
[2022-10-24] MEDS: ATORVASTATIN 80 MG TAB PO SCH (20:27)
[2022-10-24] MEDS: lisinopriL 20 MG TAB PO SCH (20:27)
[2022-10-24] MEDS: RANOLAZINE 500 MG TAB.ER.12H PO SCH (20:28)
[2022-10-24] MEDS: MULTIVITAMINS, THERA 1 EACH TAB PO SCH (20:28)
[2022-10-24] MEDS: prednisoLONE ACETATE 1% OPHTH DROPS 5 ML BTL LEFT EYE SCH (20:28)
[2022-10-24] MEDS: FAMOTIDINE 20 MG TAB PO SCH (20:28)
[2022-10-25] MEDS: amLODIPine 5 MG TAB PO SCH (08:29)
[2022-10-25] MEDS: CLOPIDOGREL 75 MG TAB PO SCH (08:29)
[2022-10-25] MEDS: lisinopriL 20 MG TAB PO SCH ×2 (08:29→20:05)
[2022-10-25] MEDS: METOPROLOL SUCCINATE (ER) 100 MG TAB.ER.24H PO SCH (08:29)
[2022-10-25] MEDS: FAMOTIDINE 20 MG TAB PO SCH ×2 (08:29→20:05)
[2022-10-25] MEDS: RANOLAZINE 500 MG TAB.ER.12H PO SCH ×2 (08:29→20:05)
[2022-10-25] MEDS: ASPIRIN 81 MG PO SCH (08:29)
[2022-10-25] MEDS: ISOSORBIDE MONONITRATE ER 60 MG TAB.ER.24H PO SCH (08:29)
[2022-10-25] MEDS: prednisoLONE ACETATE 1% OPHTH DROPS 5 ML BTL BOTH EYES SCH (08:30)
[2022-10-25 09:08] LABS: Basophils % (A) 0 %; Eosinophils # (A) 0.2 k/uL (0-0.7); Eosinophils % (A) 3 %; HGB 12.6 gm/dL (13.0-17.5); Lymphocytes % (A) 16 %; MCHC 33.1 g/dL (31.0-37.0); MCV 90.6 fL (80.0-100.0); Mean Platelet Volume 7.7; Monocytes # (A) 0.4 k/uL (0-1.0); Monocytes % (A) 6 %; Neutrophils # (A) 4.7 k/uL (1.3-7.7); Neutrophils % (A) 73 %; Platelet Count 144 k/uL (150-450); RBC 4.19 m/uL (4.30-5.90); RDW 14.7 % (11.5-15.5); WBC 6.4 k/uL (3.8-10.6)
[2022-10-25 10:27] LABS: African American GFR (CKD) >90 (>60 ml/min/1.73 sqM); Anion Gap 5 mmol/L; Blood Urea Nitrogen 13 mg/dL (9-20); Calcium 8.6 mg/dL (8.4-10.2); Carbon Dioxide 27 mmol/L (22-30); Chloride 107 mmol/L (98-107); Glucose 106 mg/dL (74-99); Non-African American GFR(CKD) >90 (>60 ml/min/1.73 sqM); Sodium 139 mmol/L (137-145)
--- NOTE | 2022-10-25 12:06 | P.PN ---
Subjective Progress Note Date: 10/25/22 Principal diagnosis: CP The patient is a pleasant 72-year-old gentleman who sees Dr. Thompson irregularly with a past medical history significant for extensive CAD was prior angioplasty and stenting multiple times in the past as well as hypertension and dyslipidemia. The last heart catheterization was performed and showed intermediate disease involving the right coronary artery and left anterior descending artery with critical disease involving large OM branch. Subsequently the patient underwent PCI of that appointment [facility] according to beside that the heart catheterization revealed extremely calcified right and left coronary system. The patient was in his usual state of health yesterday when he woke up from sleep complaining of discomfort in the middle of the chest as a sharp kind of discomfort was no radiation to the arms or neck or shoulders or back inhis symptoms of shortness of breath or sweating or dizziness or presyncope or syncope. He decided to come to the hospital he took nitroglycerin with improvement in the discomfort. When he was seen and evaluated this morning he stated that the chest discomfort has improved but he still have about 1/10 discomfort in the chest. He stated that walking to the bathroom was bringing the pain again. No shortness of breath at this point. The EKG showed sinus mechanism was no significant ST or T-wave abnormalities. The first set of troponin came in to be unremarkable. No further sets of troponin ordered. Also the chest x-ray did not show any acute abnormalities. Examination is remarkable for stable vital signs was mild sinus tachycardia and clear breathing sounds bilaterally and no lower extremity edema noted. The last echo from 2019 revealed normal LV systolic function October 252022 The patient was seen and evaluated this morning. He continues to be symptomatic, he continues to have chest discomfort with exertion and better with a resting concerning for severe CAD. He is on maximize medical treatment including four anti-ischemic medication consistent of beta chad as well as dihydropyridine calcium channel chad as well as oral nitrates as well as Ranexa. The patient need to undergo coronary angiogram and he is in full understanding and agreement. The examination is remarkable for regular rhythm with systolic murmur and clear breathing sounds bilaterally and no lower extremity edema noted Assessment Chest discomfort concerning for angina [place] extensive CAD as described above Hypertension Dyslipidemia Plan Continue the current medical regimen Increase the dose of amlodipine Proceed with coronary angiogram Objective - Vital Signs Vital signs: Vital Signs Temp 98.1 F 10/25/22 07:00 Pulse 67 08/20/23 07:00 Resp 18 10/25/22 07:00 BP 143/80 10/25/22 07:00 Pulse Ox 94 L 10/25/22 07:00 FiO2 Intake & Output 10/24/22 10/25/22 10/25/22 18:59 06:59 18:59 Intake Total 240 120 Balance 240 120 Weight 94.801 kg Intake: Oral 240 120 Other: # Voids 1 1 - Labs CBC & Chem 7: 10/25/22 08:19 10/25/22 08:19 Labs: Abnormal Lab Results - Last 24 Hours (Table) 10/25/22 10/25/22 Range/Units 08:19 08:19 RBC 4.19 L (4.30-5.90) m/uL Hgb 12.6 L (13.0-17.5) gm/dL Hct 38.0 L (39.0-53.0) % Plt Count 144 L (150-450) k/uL Glucose 106 H (74-99) mg/dL
[2022-10-25] MEDS: MULTIVITAMINS, THERA 1 EACH TAB PO SCH (20:05)
[2022-10-25] MEDS: prednisoLONE ACETATE 1% OPHTH DROPS 5 ML BTL LEFT EYE SCH (20:05)
[2022-10-25] MEDS: ATORVASTATIN 80 MG TAB PO SCH (20:05)
[2022-10-25] MEDS ORDERED: amLODIPine 10 MG TAB PO SCH (21:00)
--- NOTE | 2022-10-25 21:48 | P.PN ---
Subjective Progress Note Date: 10/25/22 72-year-old male with a significant past medical history including hypertension as well as 8 previous cardiac stents as well as a previous AAA with stent since emergency department via EMS for central chest pain. The patient stated that the chest pain woke him up out of a sleep and stated that the chest pain was centered in the center of his chest without radiation. The patient denied any nausea, vomiting as well as any diaphoresis. The patient did state that he took a subungual nitroglycerin at home and stated this had improved his pain but he had continued sensation there. The patient on arrival stated that his pain was significantly improved. The patient denied any shortness of breath, difficulty in breathing as well as any significant chest pain currently. The patient was otherwise resting in bed comfortably. EKG reveals rate of 84, IA interval of 159, no acute ST or T-wave changes, right bundle branch block Chest x-ray does not reveal any acute process Blood work reveals WBC 7.5, hemoglobin of 12.5, platelet count of 136, sodium 146, potassium 3.6, BUN/creatinine of 18/0.6 and blood glucose of 99, troponin of less than 0.012 10/25/2022 The patient was seen and evaluated in room sitting up in bedside chair. He continues to be symptomatic, he continues to have chest discomfort with exertion and better with a resting concerning for severe CAD. He is on maximize medical treatment including four anti-ischemic medication consistent of beta chad as well as dihydropyridine calcium channel chad as well as oral nitrates as well as Ranexa. ---Continue the current medical regimen -Increase the dose of amlodipine ---Proceed with coronary angiogram Objective - Vital Signs Vital signs: Vital Signs Temp 98.1 F 10/25/22 19:37 Pulse 67 10/25/22 19:37 Resp 16 10/25/22 19:37 BP 143/71 10/25/22 19:37 Pulse Ox 96 10/25/22 19:37 FiO2 Intake & Output 10/25/22 10/25/22 10/26/22 06:59 18:59 06:59 Intake Total 240 Balance 240 Intake: Oral 240 Other: # Voids 1 1 - Exam General appearance: alert, in no apparent distress Head exam: Present: atraumatic, normocephalic, normal inspection Neck exam: Present: normal inspection, full ROM Respiratory exam: Present: normal lung sounds bilaterally. Absent: respiratory distress, chest wall tenderness Cardiovascular Exam: Present: regular rate, normal rhythm, normal heart sounds GI/Abdominal exam: Present: soft, normal bowel sounds Extremities exam: Present: normal inspection, full ROM Neurological exam: Present: alert, oriented X3, CN II-XII intact Skin exam: Present: warm, dry - Labs CBC & Chem 7: 10/25/22 08:19 10/25/22 08:19 Labs: Abnormal Lab Results - Last 24 Hours (Table) 10/25/22 10/25/22 Range/Units 08:19 08:19 RBC 4.19 L (4.30-5.90) m/uL Hgb 12.6 L (13.0-17.5) gm/dL Hct 38.0 L (39.0-53.0) % Plt Count 144 L (150-450) k/uL Glucose 106 H (74-99) mg/dL Assessment and Plan Assessment: 1. Chest discomfort/unstable angina - Patient has extensive history of CAD as described above - We will admit to telemetry; monitor EKG and cardiac enzymes - 2-D echo Consult cardiology for further recommendations - Continue with aspirin, statin, Plavix, beta blockers and Imdur 2. Hypertension; Imdur 60 mg daily, lisinopril 20 mg twice a day, Norvasc 5 mg twice a day and metoprolol 100 mg daily 3. Hyperlipidemia; Lipitor 80 mg by mouth daily at bedtime 4. Gastroesophageal reflux disease; Pepcid 20 mg twice a day DVT prophylaxis; SCDs CODE STATUS; full code
[2022-10-26] MEDS: FAMOTIDINE 20 MG TAB PO SCH ×2 (08:39→20:35)
[2022-10-26] MEDS: ASPIRIN 81 MG PO SCH (08:39)
[2022-10-26] MEDS: RANOLAZINE 500 MG TAB.ER.12H PO SCH ×2 (08:39→20:35)
[2022-10-26] MEDS: METOPROLOL SUCCINATE (ER) 100 MG TAB.ER.24H PO SCH (08:39)
[2022-10-26] MEDS: prednisoLONE ACETATE 1% OPHTH DROPS 5 ML BTL BOTH EYES SCH (08:39)
[2022-10-26] MEDS: ISOSORBIDE MONONITRATE ER 60 MG TAB.ER.24H PO SCH (08:39)
[2022-10-26] MEDS: CLOPIDOGREL 75 MG TAB PO SCH (08:39)
[2022-10-26] MEDS: amLODIPine 10 MG TAB PO SCH (08:39)
[2022-10-26] MEDS ORDERED: VALSARTAN 160 MG TAB PO SCH (09:00)
[2022-10-26] MEDS: lisinopriL 20 MG TAB PO SCH ×2 (09:12→20:35)
[2022-10-26] MEDS: CHLORTHALIDONE 25 MG TAB PO SCH (09:12)
--- NOTE | 2022-10-26 10:28 | P.PN ---
Subjective Progress Note Date: 10/26/22 The patient is a pleasant 72-year-old gentleman who sees Dr. Thompson irregularly with a past medical history significant for extensive CAD was prior angioplasty and stenting multiple times in the past as well as hypertension and dyslipidemia. The last heart catheterization was performed and showed intermed iate disease involving the right coronary artery and left anterior descending artery with critical disease involving large OM branch. Subsequently the patient underwent PCI of that appointment [facility] according to beside that the heart catheterization revealed extremely calcified right and left coronary system. The patient was in his usual state of health yesterday when he woke up from sleep complaining of discomfort in the middle of the chest as a sharp kind of discomfort was no radiation to the arms or neck or shoulders or back inhis symptoms of shortness of breath or sweating or dizziness or presyncope or syncope. He decided to come to the hospital he took nitroglycerin with improvement in the discomfort. When he was seen and evaluated this morning he stated that the chest discomfort has improved but he still have about 1/10 discomfort in the chest. He stated that walking to the bathroom was bringing the pain again. No shortness of breath at this point. The EKG showed sinus mechanism was no significant ST or T-wave abnormalities. The first set of troponin came in to be unremarkable. No further sets of troponin ordered. Also the chest x-ray did not show any acute abnormalities. Examination is remarkable for stable vital signs was mild sinus tachycardia and clear breathing sounds bilaterally and no lower extremity edema noted. The last echo from 2019 re vealed normal LV systolic function October 252022 The patient was seen and evaluated this morning. He continues to be symptomatic, he continues to have chest discomfort with exertion and better with a resting concerning for severe CAD. He is on maximize medical treatment including four anti-ischemic medication consistent of beta chad as well as dihydropyridine calcium channel chad as well as oral nitrates as well as Ranexa. The patient need to undergo coronary angiogram and he is in full understanding and agreement. 10/26 Patient is seen today in follow-up. He is scheduled for cardiac catheterization on Wednesday with Dr. Thompson. Blood pressure by machine is consistently elevated 159-161 systolic. A manual blood pressure 132/68. Patient states that he has chest pain has been unchanged for the past 2 days after walking. The examination is remarkable for regular rhythm with systolic murmur and clear breathing sounds bilaterally and no lower extremity edema noted Assessment Chest discomfort concerning for angina [place] extensive CAD as described above Hypertension Dyslipidemia Plan Continue the current medical regimen Change amlodipine to once daily dosing Add chlorthalidone 25 mg daily Proceed with coronary angiogram scheduled for Wednesday with Dr. Thompson Monitor blood pressure closely Nurse practitioner note has been reviewed, I agree with the documented findings and plan of care. Patient was seen and examined. Objective - Vital Signs Vital signs: Vital Signs Temp 98.1 F 10/26/22 07:00 Pulse 68 10/26/22 07:00 Resp 16 10/26/22 07:00 BP 159/81 10/26/22 07:00 Pulse Ox 96 10/26/22 07:00 FiO2 Intake & Output 10/25/22 10/26/22 10/26/22 18:59 06:59 18:59 Intake Total 240 Balance 240 Intake: Oral 240 Other: # Voids 1 1 - Labs CBC & Chem 7: 10/25/22 08:19 10/25/22 08:19 Labs: Abnormal Lab Results - Last 24 Hours (Table) 10/25/22 10/25/22 Range/Units 08:19 08:19 RBC 4.19 L (4.30-5.90) m/uL Hgb 12.6 L (13.0-17.5) gm/dL Hct 38.0 L (39.0-53.0) % Plt Count 144 L (150-450) k/uL Glucose 106 H (74-99) mg/dL
[2022-10-26] MEDS: MULTIVITAMINS, THERA 1 EACH TAB PO SCH (20:35)
[2022-10-26] MEDS: prednisoLONE ACETATE 1% OPHTH DROPS 5 ML BTL LEFT EYE SCH (20:35)
[2022-10-26] MEDS: ATORVASTATIN 80 MG TAB PO SCH (20:35)
--- NOTE | 2022-10-26 22:16 | P.PN ---
Progress Note - Text Progress Note Date: 10/26/22 Hospital course: 72-year-old male with a significant past medical history including hypertension as well as 8 previous cardiac stents as well as a previous AAA with stent since emergency department via EMS for central chest pain. The patient stated that the chest pain woke him up out of a sleep and stated that the chest pain was centered in the center of his chest without radiation. The patient denied any nausea, vomiting as well as any diaphoresis. The patient did state that he took a subungual nitroglycerin at home and stated this had improved his pain but he had continued sensation there. The patient on arrival stated that his pain was significantly improved. The patient denied any shortness of breath, difficulty in breathing as well as any significant chest pain currently. The patient was otherwise resting in bed comfortably. EKG reveals rate of 84, SD interval of 159, no acute ST or T-wave changes, right bundle branch block Chest x-ray does not reveal any acute process Blood work reveals WBC 7.5, hemoglobin of 12.5, platelet count of 136, sodium 146, potassium 3.6, BUN/creatinine of 18/0.6 and blood glucose of 99, troponin of less than 0.012 10/25/2022 The patient was seen and evaluated in room sitting up in bedside chair. He continues to be symptomatic, he continues to have chest discomfort with exertion and better with a resting concerning for severe CAD. He is on maximize medical treatment including four anti-ischemic medication consistent of beta chad as well as dihydropyridine calcium channel chad as well as oral nitrates as well as Ranexa. ---Continue the current medical regimen -Increase the dose of amlodipine ---Proceed with coronary angiogram 10/26/2022: I assumed care of the patient today. Sitting up in a chair. Has been up to the bathroom. Does get intermittent mild chest pain. Pending cardiac catheterization tomorrow. No shortness of breath. Active Medications Amlodipine Besylate (Amlodipine 10 Mg Tab) 10 mg PO DAILY [facility] Last Admin: 10/26/22 08:39 Dose: 10 mg Aspirin (Aspirin 81 Mg) 81 mg PO DAILY [facility] Last Admin: 10/26/22 08:39 Dose: 81 mg Atorvastatin Calcium (Atorvastatin 80 Mg Tab) 80 mg PO HS [facility] Last Admin: 10/26/22 20:35 Dose: 80 mg Chlorthalidone (Chlorthalidone 25 Mg Tab) 25 mg PO DAILY [facility] Last Admin: 10/26/22 09:12 Dose: 25 mg Clopidogrel Bisulfate (Clopidogrel 75 Mg Tab) 75 mg PO DAILY [facility] Last Admin: 10/26/22 08:39 Dose: 75 mg Famotidine (Famotidine 20 Mg Tab) 20 mg PO BID [facility] Last Admin: 10/26/22 20:35 Dose: 20 mg Isosorbide Mononitrate (Isosorbide Mononitrate Er 60 Mg Tab.Er.24h) 60 mg PO DAILY [facility] Last Admin: 10/26/22 08:39 Dose: 60 mg Lisinopril (Lisinopril 20 Mg Tab) 20 mg PO BID [facility] Last Admin: 10/26/22 20:35 Dose: 20 mg Metoprolol Succinate (Metoprolol Succinate (Er) 100 Mg Tab.Er.24h) 100 mg PO DAILY [facility] Last Admin: 10/26/22 08:39 Dose: 100 mg Multivitamins (Multivitamins, Thera 1 Each Tab) 1 each PO HS [facility] Last Admin: 10/26/22 20:35 Dose: 1 each Naloxone HCl (Naloxone 0.4 Mg/Ml 1 Ml Vial) 0.2 mg IV Q2M PRN PRN Reason: Opioid Reversal Prednisolone Acetate (Prednisolone Acetate 1% Ophth Drops 5 Ml Btl) 1 drops LEFT EYE HS [facility] Last Admin: 10/26/22 20:35 Dose: 1 drops Prednisolone Acetate (Prednisolone Acetate 1% Ophth Drops 5 Ml Btl) 1 drops BOTH EYES DAILY [facility] Last Admin: 10/26/22 08:39 Dose: 1 drops Ranolazine (Ranolazine 500 Mg Tab.Er.12h) 500 mg PO BID [facility] Last Admin: 10/26/22 20:35 Dose: 500 mg INVESTIGATIONS, reviewed in the clinical context: - Labs CBC & Chem 7: 10/25/22 08:19 10/25/22 08:19 Labs: Abnormal Lab Results - Last 24 Hours (Table) 10/25/22 10/25/22 Range/Units 08:19 08:19 RBC 4.19 L (4.30-5.90) m/uL Hgb 12.6 L (13.0-17.5) gm/dL Hct 38.0 L (39.0-53.0) % Plt Count 144 L (150-450) k/uL Glucose 106 H (74-99) mg/dL Assessment: 1. Chest discomfort/unstable angina: Slow to respond - Patient has extensive history of CAD as described above - We will admit to telemetry; monitor EKG and cardiac enzymes - 2-D echo During cardiac catheterization tomorrow. - Continue with aspirin, statin, Plavix, beta blockers and Imdur 2. Hypertension; Imdur 60 mg daily, lisinopril 20 mg twice a day, Norvasc 5 mg twice a day and metoprolol 100 mg daily 3. Hyperlipidemia; Lipitor 80 mg by mouth daily at bedtime 4. Gastroesophageal reflux disease; Pepcid 20 mg twice a day CODE STATUS; full code Discussed with patient. Pending cardiac catheterization.
[2022-10-27] MEDS ORDERED: HEPARIN SODIUM,PORCINE (1 ML) 2,500 UNIT in SODIUM CHLORIDE 0.9% 250 ML IRRIGATION PRN (07:00)
[2022-10-27] MEDS ORDERED: HEPARIN SODIUM,PORCINE 10,000 UNIT in SODIUM CHLORIDE 0.9% 1,000 ML IRRIGATION PRN (07:00)
[2022-10-27] MEDS ORDERED: ALPRAZolam 0.5 MG TAB PO PRN (07:28)
[2022-10-27] MEDS ORDERED: ATORVASTATIN 80 MG TAB PO STA (07:28)
[2022-10-27] MEDS ORDERED: ASPIRIN 325 MG TAB PO STA (07:28)
[2022-10-27] MEDS ORDERED: NITROGLYCERIN SL TABS 0.4 MG TAB SUBLINGUAL PRN (07:28)
[2022-10-27] MEDS ORDERED: ALPRAZolam 0.25 MG TAB PO PRN (07:28)
[2022-10-27] MEDS: CHLORTHALIDONE 25 MG TAB PO SCH (08:18)
[2022-10-27] MEDS: CLOPIDOGREL 75 MG TAB PO SCH (08:19)
[2022-10-27] MEDS: amLODIPine 10 MG TAB PO SCH (08:19)
[2022-10-27] MEDS: ISOSORBIDE MONONITRATE ER 60 MG TAB.ER.24H PO SCH (08:19)
[2022-10-27] MEDS: FAMOTIDINE 20 MG TAB PO SCH ×2 (08:20→20:48)
[2022-10-27] MEDS: lisinopriL 20 MG TAB PO SCH ×2 (08:20→20:48)
[2022-10-27] MEDS: METOPROLOL SUCCINATE (ER) 100 MG TAB.ER.24H PO SCH (08:20)
[2022-10-27] MEDS: RANOLAZINE 500 MG TAB.ER.12H PO SCH ×2 (08:20→20:48)
[2022-10-27] MEDS: prednisoLONE ACETATE 1% OPHTH DROPS 5 ML BTL BOTH EYES SCH (08:20)
[2022-10-27] MEDS: ASPIRIN 81 MG PO SCH (08:20)
--- NOTE | 2022-10-27 17:13 | P.PN ---
Progress Note - Text Progress Note Date: 10/27/22 Hospital course: 72-year-old male with a significant past medical history including hypertension as well as 8 previous cardiac stents as well as a previous AAA with stent since emergency department via EMS for central chest pain. The patient stated that the chest pain woke him up out of a sleep and stated that the chest pain was centered in the center of his chest without radiation. The patient denied any nausea, vomiting as well as any diaphoresis. The patient did state that he took a subungual nitroglycerin at home and stated this had improved his pain but he had continued sensation there. The patient on arrival stated that his pain was significantly improved. The patient denied any shortness of breath, difficulty in breathing as well as any significant chest pain currently. The patient was otherwise resting in bed comfortably. EKG reveals rate of 84, SC interval of 159, no acute ST or T-wave changes, right bundle branch block Chest x-ray does not reveal any acute process Blood work reveals WBC 7.5, hemoglobin of 12.5, platelet count of 136, sodium 146, potassium 3.6, BUN/creatinine of 18/0.6 and blood glucose of 99, troponin of less than 0.012 10/25/2022 The patient was seen and evaluated in room sitting up in bedside chair. He continues to be symptomatic, he continues to have chest discomfort with exertion and better with a resting concerning for severe CAD. He is on maximize medical treatment including four anti-ischemic medication consistent of beta chad as well as dihydropyridine calcium channel chad as well as oral nitrates as well as Ranexa. ---Continue the current medical regimen -Increase the dose of amlodipine ---Proceed with coronary angiogram 10/26/2022: I assumed care of the patient today. Sitting up in a chair. Has been up to the bathroom. Does get intermittent mild chest pain. Pending cardiac catheterization tomorrow. No shortness of breath. 10/27/2022: Patient was seen this morning.. Continues to have intermittent mild chest pain. On IV heparin. Pending cardiac catheterization. Family at the bedside. Active Medications Alprazolam (Alprazolam 0.25 Mg Tab) 0.25 mg PO Q6HR PRN PRN Reason: Mild Anxiety Alprazolam (Alprazolam 0.5 Mg Tab) 0.5 mg PO Q6HR PRN PRN Reason: Moderate Anxiety Amlodipine Besylate (Amlodipine 10 Mg Tab) 10 mg PO DAILY [facility] Last Admin: 10/27/22 08:19 Dose: 10 mg Aspirin (Aspirin 81 Mg) 81 mg PO DAILY [facility] Last Admin: 10/27/22 08:20 Dose: Not Given Atorvastatin Calcium (Atorvastatin 80 Mg Tab) 80 mg PO HS [facility] Last Admin: 10/26/22 20:35 Dose: 80 mg Chlorthalidone (Chlorthalidone 25 Mg Tab) 25 mg PO DAILY [facility] Last Admin: 10/27/22 08:18 Dose: 25 mg Clopidogrel Bisulfate (Clopidogrel 75 Mg Tab) 75 mg PO DAILY [facility] Last Admin: 10/27/22 08:19 Dose: 75 mg Famotidine (Famotidine 20 Mg Tab) 20 mg PO BID [facility] Last Admin: 10/27/22 08:20 Dose: 20 mg Heparin Sodium (Porcine) 10, (000 unit/ Sodium Chloride) 1,001 mls @ 999 mls/hr IRRIGATION ONCE PRN PRN Reason: INTRA-OP Stop: 10/27/22 23:00 Heparin Sodium (Porcine) 2,500 (unit/ Sodium Chloride) 250.5 mls @ 250 mls/hr IRRIGATION ONCE PRN PRN Reason: INTRA-OP Stop: 10/27/22 23:00 Isosorbide Mononitrate (Isosorbide Mononitrate Er 60 Mg Tab.Er.24h) 60 mg PO DAILY [facility] Last Admin: 10/27/22 08:19 Dose: 60 mg Lisinopril (Lisinopril 20 Mg Tab) 20 mg PO BID [facility] Last Admin: 10/27/22 08:20 Dose: 20 mg Metoprolol Succinate (Metoprolol Succinate (Er) 100 Mg Tab.Er.24h) 100 mg PO DAILY [facility] Last Admin: 10/27/22 08:20 Dose: 100 mg Multivitamins (Multivitamins, Thera 1 Each Tab) 1 each PO HS [facility] Last Admin: 10/26/22 20:35 Dose: 1 each Naloxone HCl (Naloxone 0.4 Mg/Ml 1 Ml Vial) 0.2 mg IV Q2M PRN PRN Reason: Opioid Reversal Nitroglycerin (Nitroglycerin Sl Tabs 0.4 Mg Tab) 0.4 mg SUBLINGUAL Q5M PRN PRN Reason: Chest Pain Prednisolone Acetate (Prednisolone Acetate 1% Ophth Drops 5 Ml Btl) 1 drops LEFT EYE HS [facility] Last Admin: 10/26/22 20:35 Dose: 1 drops Prednisolone Acetate (Prednisolone Acetate 1% Ophth Drops 5 Ml Btl) 1 drops BOTH EYES DAILY [facility] Last Admin: 10/27/22 08:20 Dose: 1 drops Ranolazine (Ranolazine 500 Mg Tab.Er.12h) 500 mg PO BID [facility] Last Admin: 10/27/22 08:20 Dose: 500 mg INVESTIGATIONS, reviewed in the clinical context: - Labs CBC & Chem 7: 10/25/22 08:19 10/25/22 08:19 Labs: Abnormal Lab Results - Last 24 Hours (Table) 10/25/22 10/25/22 Range/Units 08:19 08:19 RBC 4.19 L (4.30-5.90) m/uL Hgb 12.6 L (13.0-17.5) gm/dL Hct 38.0 L (39.0-53.0) % Plt Count 144 L (150-450) k/uL Glucose 106 H (74-99) mg/dL Assessment: 1. Chest discomfort/unstable angina: Slow to respond - Patient has extensive history of CAD as described above Pending cardiac catheterization today - Continue with aspirin, statin, Plavix, beta blockers and Imdur 2. Hypertension; Imdur 60 mg daily, lisinopril 20 mg twice a day, Norvasc 5 mg twice a day and metoprolol 100 mg daily 3. Hyperlipidemia; Lipitor 80 mg by mouth daily at bedtime 4. Gastroesophageal reflux disease; Pepcid 20 mg twice a day -IV heparin monitoring CODE STATUS; full code Discussed with patient and family. Pending cardiac catheterization.
[2022-10-27] MEDS: prednisoLONE ACETATE 1% OPHTH DROPS 5 ML BTL LEFT EYE SCH (20:48)
[2022-10-27] MEDS: ATORVASTATIN 80 MG TAB PO SCH (20:48)
[2022-10-27] MEDS: MULTIVITAMINS, THERA 1 EACH TAB PO SCH (20:48)
[2022-10-28] MEDS ORDERED: ASPIRIN 325 MG TAB PO ONE (06:00)
[2022-10-28 06:08] LABS: Glucose,Whole Blood 114 mg/dL (70-110)
[2022-10-28] MEDS ORDERED: IV FLUID CONTINUATION 800 ML IV ONE (07:10)
[2022-10-28] MEDS: MIDAZOLAM 2 MG/2 ML VIAL IVP ONE ×2 (07:36→07:45)
[2022-10-28] MEDS ORDERED: LIDOCAINE 1% INJ 10MG/ML (20 ML MDV) SQ ONE (07:43)
[2022-10-28] MEDS: HEPARIN SODIUM 1,000 UN/ML (10ML VL) IV ONE ×3 (08:19→09:00)
[2022-10-28] MEDS ORDERED: HEPARIN SODIUM 1,000 UN/ML (10ML VL) IV ONE (08:26)
[2022-10-28] MEDS: NITROGLYCERIN 1000MCG/10ML SYRINGE INTRACORON ONE ×2 (08:27→09:12)
[2022-10-28] MEDS ORDERED: HYDROmorphone 0.5 MG/0.5 ML SYRINGE IVP ONE ×2 (08:30→09:16)
[2022-10-28] MEDS ORDERED: IOPAMIDOL-370 100ML BTL INJ ONE ×3 (08:40→09:19)
[2022-10-28] MEDS ORDERED: CLOPIDOGREL 75 MG TAB PO ONE (09:22)
[2022-10-28] MEDS: ASPIRIN 81 MG PO SCH (09:50)
[2022-10-28] MEDS: CLOPIDOGREL 75 MG TAB PO SCH (09:50)
[2022-10-28] MEDS: METOPROLOL SUCCINATE (ER) 100 MG TAB.ER.24H PO SCH (09:52)
[2022-10-28] MEDS: CHLORTHALIDONE 25 MG TAB PO SCH (09:52)
[2022-10-28] MEDS: ISOSORBIDE MONONITRATE ER 60 MG TAB.ER.24H PO SCH (09:52)
[2022-10-28] MEDS: amLODIPine 10 MG TAB PO SCH (09:52)
[2022-10-28] MEDS: RANOLAZINE 500 MG TAB.ER.12H PO SCH ×2 (09:52→20:09)
[2022-10-28] MEDS: FAMOTIDINE 20 MG TAB PO SCH ×2 (09:52→20:09)
[2022-10-28] MEDS: lisinopriL 20 MG TAB PO SCH ×2 (09:52→20:09)
[2022-10-28] MEDS: prednisoLONE ACETATE 1% OPHTH DROPS 5 ML BTL BOTH EYES SCH (09:53)
--- NOTE | 2022-10-28 13:17 | CC ---
CARDIAC CATHETERIZATION REPORT DATE OF SERVICE: 10/28/2022. PROCEDURES PERFORMED: 1. Left heart catheterization and coronary angiography. 2. Fractional flow reserve assessment of ostial/proximal left anterior descending. 3. Shockwave lithotripsy of proximal left anterior descending. 4. Intravascular ultrasound of proximal and mid left anterior descending. 5. Percutaneous transluminal coronary angioplasty and stenting of ostial left anterior descending with a drug-eluting stent. PERFORMED BY: Dr. Hedy Thompson. ANESTHESIA: Moderate conscious sedation time was 94 minutes. The patient was administered Versed and Dilaudid. Oxygen saturation, hemodynamic, and EKG were monitored closely. CLINICAL INFORMATION: Mr. Donovan Del Valle is a 72-year-old gentleman with a history of hypertension, hyperlipidemia. He also has a previous history of abdominal aortic aneurysm, for which he had an endovascular grafting performed several years ago. He has history of lung cancer, status post robotic surgery. He has quit smoking several years ago. He has significant CAD and over the years, I performed stenting of circumflex and RCA. In July 2018, I performed stenting of RCA in multiple locations. The proximal and mid circumflex was stented at [facility] in April 2019. I performed cardiac cath in December 2019. At that time, he had moderate disease, but no significant stenosis. Ostial/proximal LAD had a 40% lesion and FFR a few months prior to that was unremarkable. He presented to the hospital with symptoms strongly suggestive of unstable angina with negative enzymes. He was advised cardiac cath after due discussion. He understood all details and wished to proceed with the procedure. PROCEDURE NOTE: Under local anesthesia and strict aseptic precautions, a 6-Spanish introducer was placed in the right femoral artery using a micropuncture needle technique. Using standard Mable catheters, I performed coronary angiography. Selective coronary angiography was performed only of the circumflex. He has almost separate ostia for LAD and circumflex. I used a pigtail catheter to check LV pressures. A standard right Mable catheter was used to perform coronary angiography of right coronary artery. I noted that the patient had significant chest pain after injection of the left system and also had mild EKG changes. I then decided to proceed with FFR/IFR assessment of LAD. Following coronary angiography, and IFR, I proceeded to perform intervention. CARDIAC CATHETERIZATION FINDINGS: The left ventricular end-diastolic pressure was 14 mmHg without any gradient across aortic valve. CORONARY ANGIOGRAPHY FINDINGS: The right coronary artery is a dominant vessel. The proximal portion that was stented is widely patent. Midportion has multiple areas of narrowing of up to 40%, but the flow is brisk and angiographic appearance is similar to that from December 2023. The distal stent before bifurcation is widely patent. The PDA and PLV are both seen with mild diffuse disease. No significant stenosis. Angiographically, the vessel is very similar to that seen in December 2019. Left anterior descending coronary artery: This vessel has an ostial lesion of 50% to 60%. Progression of disease is noted. This comes off from a separate ostia. It extends all the way to the anterior wall, giving off septal and diagonal branches. There is moderate to heavy calcification in the proximal portion and the stenosis was at least moderate if not severe. Mid and distal LAD has no significant disease. Left posterior circumflex coronary artery: Nondominant vessel comes from a separate ostia. The proximal stented portion is patent. The first obtuse marginal has a 99% stenosis unchanged from before, this comes off through a coil stent that was placed in the early . Beyond it, the vessel is totally occluded and fills from the right coronary collaterals. The 2nd obtuse marginal flow is good. There is diffuse disease and there is distal occlusion of circumflex which fills from the right injection. LV-gram was not performed. Collateral circulation: There are limited amount of collaterals opacifying the distal circumflex coming from the PLV branch of RCA noted. FINAL IMPRESSION: This patient has a right-dominant system with moderate disease in the RCA, but no significant progression compared to the study from December 2019. Multiple areas of narrowing are noted, but the distal stent and proximal stent are widely patent. LAD has a 60% proximal ostial stenosis. Nondominant circumflex is patent at the stented areas, but distally occluded. First obtuse marginal has a 99% stenosis unchanged from before. Second obtuse marginal is good. Distal circumflex is occluded filling by collaterals from the RCA. RECOMMENDATIONS: I recommended IFR of LAD and intervention and proceeded to perform this in the same setting. PCI PROCEDURE DETAILS: I used a standard left Mable 4.0 guide catheter to cannulate the LAD selectively. I used Omniwire and performed an IFR with appropriate calibration. IFR was 0.46 suggesting that ostial disease was significant with calcification. I then advanced a short run-through wire and kept it distally in the LAD. I performed a shock wave lithotripsy with 3 passes using a 3.5 caliber 12 mm long shock wave laser balloon. After performing shock wave lithotripsy of the proximal/ostial LAD, I then used a 3.75 NC Trek balloon and dilated the whole area. Subsequently, I went ahead and deployed a 4.0 caliber Xience stent and expanded this up to 14 atmospheres and the stent started from the ostium into the proximal portion. Angiographic result was good. I then performed intravascular ultrasound and noted that the stent was somewhat under expanded in the distal portion and there was also a plaque distal to the stent as well. I decided to dilate the entire segment with a 4.5 caliber NC Trek balloon. This was a 12 mm NC Trek balloon and the entire stent as well as distal to the stent was dilated with a 4.5 NC Trek balloon up to 14 atmospheres. Excellent angiographic result was achieved. The patient had chest pain and precordial ST elevation with inflations. Angiographic result was excellent. Intravascular ultrasound suggested some underexpansion and therefore, I used a larger balloon and angiographic appearance was good. The patient received an additional dose of heparin. ACT was 249. He also received 600 mg of Plavix. He will be on aspirin and Plavix without interruption for 1 year. Excellent angiographic result without complication was achieved. Findings were discussed with the patient as well as his and children. I expect he will be discharged tomorrow if he remains stable. MMODL / IJN: [id number] /
--- NOTE | 2022-10-28 19:03 | P.PN ---
Progress Note - Text Progress Note Date: 10/28/22 Hospital course: 72-year-old male with a significant past medical history including hypertension as well as 8 previous cardiac stents as well as a previous AAA with stent since emergency department via EMS for central chest pain. The patient stated that the chest pain woke him up out of a sleep and stated that the chest pain was centered in the center of his chest without radiation. The patient denied any nausea, vomiting as well as any diaphoresis. The patient did state that he took a subungual nitroglycerin at home and stated this had improved his pain but he had continued sensation there. The patient on arrival stated that his pain was significantly improved. The patient denied any shortness of breath, difficulty in breathing as well as any significant chest pain currently. The patient was otherwise resting in bed comfortably. EKG reveals rate of 84, SD interval of 159, no acute ST or T-wave changes, right bundle branch block Chest x-ray does not reveal any acute process Blood work reveals WBC 7.5, hemoglobin of 12.5, platelet count of 136, sodium 146, potassium 3.6, BUN/creatinine of 18/0.6 and blood glucose of 99, troponin of less than 0.012 10/25/2022 The patient was seen and evaluated in room sitting up in bedside chair. He continues to be symptomatic, he continues to have chest discomfort with exertion and better with a resting concerning for severe CAD. He is on maximize medical treatment including four anti-ischemic medication consistent of beta chad as well as dihydropyridine calcium channel chad as well as oral nitrates as well as Ranexa. ---Continue the current medical regimen -Increase the dose of amlodipine ---Proceed with coronary angiogram 10/26/2022: I assumed care of the patient today. Sitting up in a chair. Has been up to the bathroom. Does get intermittent mild chest pain. Pending cardiac catheterization tomorrow. No shortness of breath. 10/27/2022: Patient was seen this morning.. Continues to have intermittent mild chest pain. On IV heparin. Pending cardiac catheterization. Family at the bedside. 10/28/2022: Underwent cardiac catheterization this morning. PTCA stent of osteoma. LAD. By Dr. ALVARO Thompson. Postprocedure laying in bed. Comfortable. Active Medications Alprazolam (Alprazolam 0.25 Mg Tab) 0.25 mg PO Q6HR PRN PRN Reason: Mild Anxiety Alprazolam (Alprazolam 0.5 Mg Tab) 0.5 mg PO Q6HR PRN PRN Reason: Moderate Anxiety Amlodipine Besylate (Amlodipine 10 Mg Tab) 10 mg PO DAILY [facility] Last Admin: 10/28/22 09:52 Dose: 10 mg Aspirin (Aspirin 81 Mg) 81 mg PO DAILY [facility] Last Admin: 10/28/22 09:50 Dose: Not Given Atorvastatin Calcium (Atorvastatin 80 Mg Tab) 80 mg PO HS [facility] Last Admin: 10/27/22 20:48 Dose: 80 mg Chlorthalidone (Chlorthalidone 25 Mg Tab) 25 mg PO DAILY [facility] Last Admin: 10/28/22 09:52 Dose: 25 mg Clopidogrel Bisulfate (Clopidogrel 75 Mg Tab) 75 mg PO DAILY [facility] Last Admin: 10/28/22 09:50 Dose: Not Given Famotidine (Famotidine 20 Mg Tab) 20 mg PO BID [facility] Last Admin: 10/28/22 09:52 Dose: 20 mg Isosorbide Mononitrate (Isosorbide Mononitrate Er 60 Mg Tab.Er.24h) 60 mg PO DAILY [facility] Last Admin: 10/28/22 09:52 Dose: 60 mg Lisinopril (Lisinopril 20 Mg Tab) 20 mg PO BID [facility] Last Admin: 10/28/22 09:52 Dose: 20 mg Metoprolol Succinate (Metoprolol Succinate (Er) 100 Mg Tab.Er.24h) 100 mg PO DAILY [facility] Last Admin: 10/28/22 09:52 Dose: 100 mg Multivitamins (Multivitamins, Thera 1 Each Tab) 1 each PO HS [facility] Last Admin: 10/27/22 20:48 Dose: 1 each Naloxone HCl (Naloxone 0.4 Mg/Ml 1 Ml Vial) 0.2 mg IV Q2M PRN PRN Reason: Opioid Reversal Nitroglycerin (Nitroglycerin Sl Tabs 0.4 Mg Tab) 0.4 mg SUBLINGUAL Q5M PRN PRN Reason: Chest Pain Prednisolone Acetate (Prednisolone Acetate 1% Ophth Drops 5 Ml Btl) 1 drops LEFT EYE HS [facility] Last Admin: 10/27/22 20:48 Dose: 1 drops Prednisolone Acetate (Prednisolone Acetate 1% Ophth Drops 5 Ml Btl) 1 drops BOTH EYES DAILY [facility] Last Admin: 10/28/22 09:53 Dose: 1 drops Ranolazine (Ranolazine 500 Mg Tab.Er.12h) 500 mg PO BID [facility] Last Admin: 10/28/22 09:52 Dose: 500 mg INVESTIGATIONS, reviewed in the clinical context: 10/25/22 08:19 Labs: Abnormal Lab Results - Last 24 Hours (Table) 10/25/22 10/25/22 Range/Units 08:19 08:19 RBC 4.19 L (4.30-5.90) m/uL Hgb 12.6 L (13.0-17.5) gm/dL Hct 38.0 L (39.0-53.0) % Plt Count 144 L (150-450) k/uL Glucose 106 H (74-99) mg/dL Assessment: 1. Unstable angina. Cardiac catheterization done today with stent to LAD. By Dr. ALVARO Thompson. - Continue with aspirin, statin, Plavix, beta blockers and Imdur 2. Hypertension; Imdur 60 mg daily, lisinopril 20 mg twice a day, Norvasc 5 mg twice a day and metoprolol 100 mg daily 3. Hyperlipidemia; Lipitor 80 mg by mouth daily at bedtime 4. Gastroesophageal reflux disease; Pepcid 20 mg twice a day CODE STATUS; full code Discussed with patient and of the bedside. Increase activity as tolerated. Hopefully discharge tomorrow
[2022-10-28] MEDS: prednisoLONE ACETATE 1% OPHTH DROPS 5 ML BTL LEFT EYE SCH (20:09)
[2022-10-28] MEDS: ATORVASTATIN 80 MG TAB PO SCH (20:09)
[2022-10-28] MEDS: MULTIVITAMINS, THERA 1 EACH TAB PO SCH (20:09)
[2022-10-29 06:53] LABS: African American GFR (CKD) 87 (>60 ml/min/1.73 sqM); Anion Gap 4 mmol/L; Blood Urea Nitrogen 17 mg/dL (9-20); Calcium 8.6 mg/dL (8.4-10.2); Carbon Dioxide 30 mmol/L (22-30); Chloride 102 mmol/L (98-107); Glucose 100 mg/dL (74-99); Non-African American GFR(CKD) 75 (>60 ml/min/1.73 sqM); Potassium 4.1 mmol/L (3.5-5.1); Sodium 136 mmol/L (137-145)
[2022-10-29 08:09] VITALS: BP 123/70; PULSE 63; RESP 16; TEMP 98.3
[2022-10-29] MEDS: CLOPIDOGREL 75 MG TAB PO SCH (09:11)
[2022-10-29] MEDS: lisinopriL 20 MG TAB PO SCH (09:11)
[2022-10-29] MEDS: CHLORTHALIDONE 25 MG TAB PO SCH (09:11)
[2022-10-29] MEDS: ISOSORBIDE MONONITRATE ER 60 MG TAB.ER.24H PO SCH (09:11)
[2022-10-29] MEDS: METOPROLOL SUCCINATE (ER) 100 MG TAB.ER.24H PO SCH (09:11)
[2022-10-29] MEDS: ASPIRIN 81 MG PO SCH (09:11)
[2022-10-29] MEDS: RANOLAZINE 500 MG TAB.ER.12H PO SCH (09:11)
[2022-10-29] MEDS: FAMOTIDINE 20 MG TAB PO SCH (09:11)
[2022-10-29] MEDS: amLODIPine 10 MG TAB PO SCH (09:11)
[2022-10-29] MEDS: prednisoLONE ACETATE 1% OPHTH DROPS 5 ML BTL BOTH EYES SCH (09:12)
--- NOTE | 2022-10-29 09:14 | P.PN ---
Progress Note - Text Yesterday patient underwent coronary angiography with significant stenosis of the ostial/proximal LAD with shockwave lithotripsy followed by stenting Patient is doing well today no chest discomfort dizziness or lightheadedness Mildly tender groin mild swelling Patient is ambulating around in the room comfortably He is sitting comfortably in a chair No chest discomfort no undue shortness of breath On examination blood pressure 117/73 mmHg pulse rate in the 70s afebrile Breath sounds are clear no rhonchi no crackles Heart sounds S1 and S2 are normal Impression Patient presented with unstable angina without acute myocardial infarction Coronary artery disease status post coronary stenting to the LAD performed yesterday Doing well. Plan Discharge home today and follow Dr. Thompson Continue amlodipine, aspirin, chlorthalidone, Plavix, Imdur, lisinopril, metoprolol and Ranexa unchanged
--- NOTE | 2022-10-29 18:05 | P.DS ---
Providers Date of admission: 10/27/22 12:32 Expected date of discharge: 10/29/22 Attending physician: Nabil Wyatt Consults: 10/24/22 02:57 Consult Physician Routine Consulting Provider: [facility] Consult Reason/Comments: CP r/o ACS Do you want consulting provider notified?: Yes, Notify in am Primary care physician: [facility] Course: Hospital course: 72-year-old male with a significant past medical history including hypertension as well as 8 previous cardiac stents as well as a previous AAA with stent since emergency department via EMS for central chest pain. The patient stated that the chest pain woke him up out of a sleep and stated that the chest pain was centered in the center of his chest without radiation. The patient denied any nausea, vomiting as well as any diaphoresis. The patient did state that he took a subungual nitroglycerin at home and stated this had improved his pain but he had continued sensation there. The patient on arrival stated that his pain was significantly improved. The patient denied any shortness of breath, difficulty in breathing as well as any significant chest pain currently. The patient was otherwise resting in bed comfortably. EKG reveals rate of 84, GA interval of 159, no acute ST or T-wave changes, right bundle branch block Chest x-ray does not reveal any acute process Blood work reveals WBC 7.5, hemoglobin of 12.5, platelet count of 136, sodium 146, potassium 3.6, BUN/creatinine of 18/0.6 and blood glucose of 99, troponin of less than 0.012 10/25/2022 The patient was seen and evaluated in room sitting up in bedside chair. He continues to be symptomatic, he continues to have chest discomfort with exertion and better with a resting concerning for severe CAD. He is on maximize medical treatment including four anti-ischemic medication consistent of beta chad as well as dihydropyridine calcium channel chad as well as oral nitrates as well as Ranexa. ---Continue the current medical regimen -Increase the dose of amlodipine ---Proceed with coronary angiogram 10/26/2022: I assumed care of the patient today. Sitting up in a chair. Has been up to the bathroom. Does get intermittent mild chest pain. Pending cardiac catheterization tomorrow. No shortness of breath. 10/27/2022: Patient was seen this morning.. Continues to have intermittent mild chest pain. On IV heparin. Pending cardiac catheterization. Family at the bedside. 10/28/2022: Underwent cardiac catheterization this morning. PTCA stent of osteoma. LAD. By Dr. ALVARO Thompson. Postprocedure laying in bed. Comfortable. 10/29/2022: Doing well. Up and about. No chronic symptoms. Seen by Dr. Calvin Joya from [facility]. Cleared. Follow-up with cardiology outpatient. INVESTIGATIONS, reviewed in the clinical context: 10/29/2022: Potassium 4.1 creatinine 0.99 10/25/22 08:19 Labs: Abnormal Lab Results - Last 24 Hours (Table) 10/25/22 10/25/22 Range/Units 08:19 08:19 RBC 4.19 L (4.30-5.90) m/uL Hgb 12.6 L (13.0-17.5) gm/dL Hct 38.0 L (39.0-53.0) % Plt Count 144 L (150-450) k/uL Glucose 106 H (74-99) mg/dL Assessment: 1. Unstable angina. Cardiac catheterization with stent to LAD. By Dr. ALVARO Thompson. - Continue with aspirin, statin, Plavix, beta blockers and Imdur 2. Hypertension; Imdur 60 mg daily, lisinopril 20 mg twice a day, Norvasc 5 mg twice a day and metoprolol 100 mg daily 3. Hyperlipidemia; Lipitor 80 mg by mouth daily at bedtime 4. Gastroesophageal reflux disease; Pepcid 20 mg twice a day CODE STATUS; full code Disposition: Home Patient Condition at Discharge: Stable Plan - Discharge Summary New Discharge Prescriptions: New amLODIPine [Norvasc] 10 mg PO DAILY #30 tab Chlorthalidone [Hygroton] 25 mg PO DAILY #30 tab Nitroglycerin Sl Tabs [Nitrostat] 0.4 mg SUBLINGUAL Q5M PRN #30 tab PRN Reason: Chest Pain Continue Metoprolol Succinate (ER) [Toprol XL] 100 mg PO DAILY Clopidogrel [Plavix] 75 mg PO DAILY #90 tab Atorvastatin [Lipitor] 80 mg PO HS Vitamin B Complex 1 cap PO HS Multivitamins, Thera [Multivitamin (formulary)] 1 tab PO HS Aspirin 81 mg PO DAILY Famotidine [Pepcid] 20 mg PO BID Isosorbide Mononitrate ER [Imdur] 60 mg PO DAILY Ranolazine [Ranexa] 500 mg PO BID lisinopriL [Zestril] 20 mg PO BID Vit C/E/Zn/Coppr/Lutein/Zeaxan [Preservision Areds 2 Softgel] 1 cap PO BID prednisoLONE ACETATE 1% OPHTH [Pred Forte 1%] 1 drop LEFT EYE HS Prednisolone Acetate/Pf [Prednisolone Acet 1% Eye Drop] 1 drop BOTH EYES DAILY Discontinued amLODIPine [Norvasc] 5 mg PO BID Discharge Medication List Metoprolol Succinate (ER) [Toprol XL] 100 mg PO DAILY 04/29/15 [History] Clopidogrel [Plavix] 75 mg PO DAILY #90 tab 05/01/15 [Rx] Atorvastatin [Lipitor] 80 mg PO HS 12/27/18 [History] Vitamin B Complex 1 cap PO HS 12/27/18 [History] Aspirin 81 mg PO DAILY 01/15/19 [History] Multivitamins, Thera [Multivitamin (formulary)] 1 tab PO HS 01/15/19 [History] Famotidine [Pepcid] 20 mg PO BID 12/30/19 [History] Isosorbide Mononitrate ER [Imdur] 60 mg PO DAILY 12/30/19 [History] Ranolazine [Ranexa] 500 mg PO BID 12/30/19 [History] Prednisolone Acetate/Pf [Prednisolone Acet 1% Eye Drop] 1 drop BOTH EYES DAILY 10/24/22 [History] Vit C/E/Zn/Coppr/Lutein/Zeaxan [Preservision Areds 2 Softgel] 1 cap PO BID 10/24/22 [History] lisinopriL [Zestril] 20 mg PO BID 10/24/22 [History] prednisoLONE ACETATE 1% OPHTH [Pred Forte 1%] 1 drop LEFT EYE HS 10/24/22 [History] Chlorthalidone [Hygroton] 25 mg PO DAILY #30 tab 10/29/22 [Rx] Nitroglycerin Sl Tabs [Nitrostat] 0.4 mg SUBLINGUAL Q5M PRN #30 tab 10/29/22 [Rx] amLODIPine [Norvasc] 10 mg PO DAILY #30 tab 10/29/22 [Rx] Follow up Appointment(s)/Referral(s): Teresa Thompson MD [STAFF PHYSICIAN] - 11/04/22 2:30 pm Omar Luque MD [Primary Care Provider] - 1-2 days Patient Instructions/Handouts: *[facility] - After Heart Catheterization - Auto Suspension And Steering Mechanic Instructions Discharge Disposition: HOME SELF-CARE
== END 2022-10-29 12:15 | disposition home or self-care (01) | DRG 247 ==
LOC: EC 00:49 → 6NMEDSUR 02:58 → OBSVTOIN 10-27 12:32
PROVIDERS: ADMIT Hospitalist; ATTEND Hospitalist
PROC: 02F03ZZ Fragmentation in Coronary Artery, One Artery, Percutaneous Approach (ICD-10-PCS; principal; 2022-10-28 07:30)
PROC: B241ZZ3 Ultrasonography of Multiple Coronary Arteries, Intravascular (ICD-10-PCS; principal; 2022-10-28 07:30)
PROC: 4A033BC Measurement of Arterial Pressure, Coronary, Percutaneous Approach (ICD-10-PCS; principal; 2022-10-28 07:30)
PROC: B2111ZZ Fluoroscopy of Multiple Coronary Arteries using Low Osmolar Contrast (ICD-10-PCS; principal; 2022-10-28 07:30)
PROC: 027034Z Dilation of Coronary Artery, One Artery with Drug-eluting Intraluminal Device, Percutaneous Approach (ICD-10-PCS; principal; 2022-10-28 07:30)
PROC: 4A023N7 Measurement of Cardiac Sampling and Pressure, Left Heart, Percutaneous Approach (ICD-10-PCS; principal; 2022-10-28 07:30)
DX: I25.110 Atherosclerotic heart disease of native coronary artery with unstable angina pectoris (principal); I10 Essential (primary) hypertension; K21.9 Gastro-esophageal reflux disease without esophagitis; I71.40 Abdominal aortic aneurysm, without rupture, unspecified; F41.9 Anxiety disorder, unspecified; F10.21 Alcohol dependence, in remission; E78.5 Hyperlipidemia, unspecified; Z95.5 Presence of coronary angioplasty implant and graft; Z95.828 Presence of other vascular implants and grafts; Z85.118 Personal history of other malignant neoplasm of bronchus and lung; Z79.899 Other long term (current) drug therapy; Z79.82 Long term (current) use of aspirin; Z79.02 Long term (current) use of antithrombotics/antiplatelets; Z87.891 Personal history of nicotine dependence
CPT/HCPCS: 0715T; 36415; 71046; 80048; 80053; 83690; 83735; 83880; 84484; 85025; 85610; 85730; 92978; 93005; 93458; 93799; 99285

== ENCOUNTER 2023-08-16 09:02 | Day surgery (SDC) | payer MEDICARE ==
[2023-08-12 15:02] VITALS: BMI 30.5
[~2023-08-16 09:02] MED LIST: ALPRAZolam 0.25 MG TAB PO PRN; ALPRAZolam 0.5 MG TAB PO PRN; ASPIRIN 325 MG TAB PO STA; HEPARIN SODIUM,PORCINE (1 ML) 2,500 UNIT in SODIUM CHLORIDE 0.9% 250 ML IRRIGATION PRN; HEPARIN SODIUM,PORCINE 10,000 UNIT in SODIUM CHLORIDE 0.9% 1,000 ML IRRIGATION PRN; NITROGLYCERIN SL TABS 0.4 MG TAB SUBLINGUAL PRN; SODIUM CHLORIDE 0.9% 1,000 ML in EMPTY BAG 1 BAG IV SCH
[2023-08-16 09:29] VITALS: TEMP 98.2
[2023-08-16] MEDS: SODIUM CHLORIDE 0.9% 1,000 ML IV ONE (09:30)
[2023-08-16] MEDS ORDERED: LIDOCAINE 1% INJ 10MG/ML (20 ML MDV) ONE (10:15)
[2023-08-16] MEDS ORDERED: fentaNYL (PF) 50 MCG/ML 2 ML AMP ONE (10:15)
[2023-08-16] MEDS ORDERED: VERAPAMIL 2.5 MG/ML 2 ML AMP ONE (10:15)
[2023-08-16] MEDS ORDERED: HEPARIN SODIUM 1,000 UN/ML (10ML VL) ONE (10:15)
[2023-08-16] MEDS: MIDAZOLAM 2 MG/2 ML VIAL IVP ONE ×2 (10:41→10:43)
[2023-08-16] MEDS: LIDOCAINE 1% INJ 10MG/ML (20 ML MDV) SQ ONE (10:47)
[2023-08-16] MEDS: HYDROmorphone 0.5 MG/0.5 ML SYRINGE IVP ONE (11:19)
[2023-08-16] MEDS: IOPAMIDOL-370 100ML BTL INJ ONE (11:33)
[2023-08-16] MEDS ORDERED: SODIUM CHLORIDE 0.9% 1,000 ML IV SCH (11:45)
[2023-08-16 13:04] VITALS: RESP 16
--- NOTE | 2023-08-16 13:57 | CC ---
CARDIAC CATHETERIZATION REPORT PROCEDURES PERFORMED: Left heart catheterization, coronary angiography. PERFORMED BY: Dr. Hedy Thompson. ANESTHESIA: Moderate conscious sedation time was 49 minutes. Patient was administered Versed. Oxygen saturation, hemodynamics, and EKG were monitored closely. CLINICAL INFORMATION: Mr. Donovan Del Valle is a 73-year-old gentleman with a known history of CAD. History of lung cancer status post right robotic upper lobectomy. He has also abdominal aortic aneurysm infrarenal with a stent graft performed years ago, recent ultrasound was unremarkable. He has multiple interventions of various vessels. He has had intervention of the right coronary artery as well as LAD and circumflex. He had a circumflex marginal that was jailed, a large vessel that had a 95% stenosis. He also has an LAD that was stented on October 28, 2022 and this was stented with a drug-eluting stent followed by a 4.5 balloon dilatation and intravascular ultrasound. He also had a circumflex intervention before, but the obtuse marginal was not intervened. He had shockwave lithotripsy of proximal and ostial LAD, intravascular ultrasound performed in October 2022. Because of some symptoms suggestive of angina, he was advised cardiac catheterization after due discussion regarding risks, benefits, and options. PROCEDURE NOTE: Under local anesthesia and strict aseptic precautions, I gained access into the right radial, but could not advance the wire. Therefore, I abandoned and went to the right femoral approach. A small pressure bandage was placed over the right radial side with good hemostasis and good pulse. Under strict aseptic precautions, local anesthesia, a 6-Moroccan introducer was placed in the right femoral artery. There was some scar tissue. I used a long Amplatz Stiff wire with a 6.0 regular length sheath. The patient had some discomfort but was performed uneventfully. I used a standard Mable catheters for coronary angiography and then used a 3.5 left Mable to selectively cannulate the LAD. LAD and circumflex almost come from 2 separate origins. I also checked LV pressures with a pigtail catheter but LV gram was not performed. The sheath was then taken out, and Angio-Seal device used to secure hemostasis and was sent to the room in a stable condition. Results were discussed with the patient and . There is no significant progression of disease. LAD stent looks good. The jailed circumflex , the 1st obtuse marginal which is about 99% is unchanged from before. It comes through a coiled stent that was placed in the early . His RCA has moderate disease, but no critical narrowing throughout. Results were discussed with the patient and family and he was sent home. An echocardiogram will be performed prior to discharge. CARDIAC CATHETERIZATION FINDINGS: The left ventricular end-diastolic pressure was about 10 to 12 mmHg without any gradient across aortic valve. CORONARY ANGIOGRAPHY FINDINGS: Right Coronary Artery: This is technically a dominant vessel that was stented before in multiple areas. This has multiple areas of diffuse narrowing, but there is no focal critical stenosis. RCA has a midportion stent about a 30% to 40% narrowing throughout, but no critical stenosis noted distally, it bifurcates into PDA and PLV. PLV is totally occluded, provides some collaterals to the distal circumflex, PDA has about a 30% to 40% narrowing. Angiographic appearance is very similar to October 2022. Left Anterior Descending Coronary Artery: The LAD and circumflex almost have side-by- side origin. Left anterior descending coronary artery was selectively cannulated using a 3.5 curved L Mable catheter. The ostium is widely patent. No damping is noted. Proximal area that was stented in October of 2022 is widely patent with remarkably good flow. Two diagonal branches and several septal branches are free of significant disease. Vessel runs all the way to the apex supplying a sizable amount of myocardium. There is no significant disease in the LAD system. I performed an SCHROEDER caudal as well as BULGARIAN cranial projection, but I could not see any significant narrowing. I did not do any intravascular ultrasound since angiographically the vessel looked very similar to October 2022 at the end of the procedure. Left Posterior Circumflex Coronary Artery: Nondominant vessel comes from a separate ostium. The proximal stented portion is free of significant disease. The proximal stented area is free of significant disease. The first obtuse marginal has a tight narrowing and comes off from a jailed coil stent and this has 95% stenosis and that could be responsible for some of his angina. The continuation of circumflex after that is free of significant disease. The second obtuse marginal is free of significant disease. The angiographic appearance of circumflex system is pretty much unchanged compared to the previous angiogram from October 2022. Left ventriculogram was not performed. FINAL IMPRESSION: This patient has normal filling pressures and no gradient across aortic valve. A right- dominant system with more moderate noncritical diffuse disease in the LAD with no more than 40% narrowing throughout. PLV distally is occluded but provides collaterals to the circumflex, PDA has minor irregularities. Left main does not exist pretty much 2 separate ostia for LAD and circumflex. LAD does not have any critical stenosis. Ostium, there is no damping. There is no significant disease in the entire LAD system in BULGARIAN and SCHROEDER projections. Circumflex is nondominant. The 1st obtuse marginal has a tight stenosis unchanged and rest of the angiographic appearance is pretty much similar to the previous study from 04/27/2022 with some diffuse disease noted in the groove branch. First obtuse marginal has a 95% narrowing. RECOMMENDATIONS: Based on angiographic appearance, there is no progression of disease. We will pursue medical therapy, obtain echocardiogram today, and I will do a stress test as an outpatient to see if there is any ischemia in the LAD distribution. Discussed my thoughts in detail with the patient. He can gradually increase activity. He is on optimal medical therapy. I will see him in the office on the . Also discharge home later on today after hydration. MMODL / IJN: [id number] /
[2023-08-16 16:00] VITALS: BP 141/71; PULSE 67
--- NOTE | 2023-08-16 17:19 | CA ---
Transthoracic Echo Report Name: Donovan Del Valle Age: 73 Gender: M : 1950 Exam Date: 08/16/2023 11:59 Exam Location: [facility] Ht (in): 69 Wt (lb): 205 Ordering Physician: Teresa Thompson MD ([id number]) Attending/Referring Phys: Roll Clamp Operator Monet Chavez RDCS Procedure CPT: Indications: R/O VALVE DX/CLOT Cardiac Hx: POST CATH, PT Supine Technical Quality: Poor, Technically difficult study Contrast 1: Definity Total Dose (mL): 2 Contrast 2: Total Dose (mL): MEASUREMENTS (Male / Female) Normal Values 2D ECHO LV Diastolic Diameter PLAX 5.5 cm 4.2 - 5.9 / 3.9 - 5.3 cm LV Systolic Diameter PLAX 4.3 cm IVS Diastolic Thickness 1.5 cm 0.6 - 1.0 / 0.6 - 0.9 cm LVPW Diastolic Thickness 1.4 cm 0.6 - 1.0 / 0.6 - 0.9 cm LV Relative Wall Thickness 0.5 RV Internal Dim ED PLAX 2.0 cm LA Systolic Diameter LX 4.6 cm 3.0 - 4.0 / 2.7 - 3.8 cm LA Volume 80.9 cm??? 18 - 58 / 22 - 52 cm??? LA Volume Index 37.6 cm???/m??? 16 - 28 cm???/m??? M-MODE Aortic Root Diameter MM 4.1 cm LA Systolic Diameter MM 3.8 cm LA Ao Ratio MM 0.9 AV Cusp Separation MM 1.9 cm DOPPLER AV Peak Velocity 180.2 cm/s AV Peak Gradient 13.0 mmHg AI Peak Velocity 413.8 cm/s AI Peak Gradient 68.5 mmHg AI Pressure Half Time 596.4 ms MV Area PHT 3.2 cm??? Mitral E Point Velocity 57.9 cm/s Mitral A Point Velocity 100.2 cm/s Mitral E to A Ratio 0.6 MV Deceleration Time 234.6 ms TR Peak Velocity 261.9 cm/s TR Peak Gradient 27.4 mmHg FINDINGS Left Ventricle Left ventricular ejection fraction is estimated at 55-60 %. Moderately increased septal wall thickness. Left ventricular cavity size normal. No obvious regional wall motion abnormalities. Right Ventricle Normal right ventricular size and function. Right ventricular systolic pressure within normal limits. Right Atrium Normal right atrial size. Left Atrium Mildly increased left atrial diameter. Moderately increased left atrial volume. Mildly increased left atrial area. Mitral Valve Structurally normal mitral valve. Trace mitral regurgitation. No mitral stenosis. Aortic Valve Trileaflet aortic valve. No aortic stenosis. Moderate aortic regurgitation. Tricuspid Valve Structurally normal tricuspid valve. Mild tricuspid regurgitation. Pulmonic Valve Structurally normal pulmonic valve. No pulmonic regurgitation. No pulmonic stenosis. Pericardium Minimal pericardial effusion (normal variant). Aorta Mild aortic dilatation at the level of the sinuses of valsalva (root) 4.1cm. CONCLUSIONS Preserved LV size and systolic function Previewed by: Dr. Calvin Baez MD (Electronically Signed) Final Date: 16 August 2023 17:18
== END 2023-08-16 16:04 | disposition home or self-care (01) ==
LOC: CATHCVL 09:02
PROVIDERS: ATTEND Internal Medicine Interventional Cardiology
DX: I25.10 Atherosclerotic heart disease of native coronary artery without angina pectoris (principal); I08.3 Combined rheumatic disorders of mitral, aortic and tricuspid valves; I10 Essential (primary) hypertension; E78.00 Pure hypercholesterolemia, unspecified; Z79.82 Long term (current) use of aspirin; Z79.899 Other long term (current) drug therapy; Z85.118 Personal history of other malignant neoplasm of bronchus and lung
CPT/HCPCS: 93458; 99152; 99153; C8929; C1760; C1769 ×4; C1894 ×2; J2250; J2001; J1170; Q9967; 93306

== ENCOUNTER → 2024-01-05 | Outpatient (CLI) | payer MEDICARE ==
[2024-01-06 02:31] LABS: HGB 10.3 g/dL (13.0-17.0); MCH 27.5 pg (27.0-32.0); MCHC 30.3 g/dL (32.0-37.0); MCV 90.9 FL (80.0-97.0); Mean Platelet Volume 10.3 FL (9.5-12.2); NRBC Per 100 WBC 0 X 10*3/uL (0.00-0.01); Platelet Count 205 X 10*3/uL (140-440); RBC 3.74 X 10*6/uL (4.40-5.60); WBC 7.57 X 10*3/uL (4.50-10.00)
[2024-01-06 03:08] LABS: BUN/Creat Ratio 14.67 Ratio (12.00-20.00); Blood Urea Nitrogen 13.2 mg/dL (9.0-27.0); Calcium 8.8 mg/dL (8.7-10.3); Carbon Dioxide 24.9 mmol/L (21.6-31.8); Chloride 106 mmol/L (96-109); Glucose 118 mg/dL (70-110); Sodium 141 mmol/L (135-145)
== END | disposition home or self-care (01) ==
LOC: LABWHC1 15:14
PROVIDERS: ATTEND Internal Medicine Interventional Cardiology
DX: I25.10 Atherosclerotic heart disease of native coronary artery without angina pectoris (principal)
CPT/HCPCS: 36415; 80048; 85027

== ENCOUNTER 2024-01-13 09:00 | Day surgery (SDC) | payer MEDICARE ==
[~2024-01-13 09:00] MED LIST changes: -ASPIRIN 325 MG TAB PO STA; +ATORVASTATIN 80 MG TAB PO STA; -SODIUM CHLORIDE 0.9% 1,000 ML in EMPTY BAG 1 BAG IV SCH
[2024-01-13] MEDS: SODIUM CHLORIDE 0.9% 1,000 ML in EMPTY BAG 1 BAG IV SCH (09:35)
[2024-01-13] MEDS: ASPIRIN 325 MG TAB PO STA (09:35)
[2024-01-13] MEDS: IV FLUID CONTINUATION 1,000 ML IV ONE (09:35)
[2024-01-13 09:38] VITALS: RESP 16; TEMP 98.9
[2024-01-13 09:50] LABS: Basophils % (A) 0 %; Eosinophils # (A) 0.2 k/uL (0-0.7); Eosinophils % (A) 2 %; HCT 35.6 % (39.0-53.0); HGB 11.3 gm/dL (13.0-17.5); Hypochromasia Moderate; Lymphocytes # (A) 1.3 k/uL (1.0-4.8); Lymphocytes % (A) 17 %; MCH 27.6 pg (25.0-35.0); MCHC 31.8 g/dL (31.0-37.0); MCV 86.8 fL (80.0-100.0); Mean Platelet Volume 7.6; Monocytes # (A) 0.5 k/uL (0-1.0); Monocytes % (A) 6 %; Neutrophils % (A) 74 %; Platelet Count 211 k/uL (150-450); RDW 14.9 % (11.5-15.5); WBC 8.1 k/uL (3.8-10.6)
[2024-01-13 10:04] LABS: African American GFR (CKD) >90 (>60 ml/min/1.73 sqM); Anion Gap 5 mmol/L; Blood Urea Nitrogen 17 mg/dL (9-20); Calcium 8.7 mg/dL (8.4-10.2); Carbon Dioxide 25 mmol/L (22-30); Chloride 109 mmol/L (98-107); Glucose 107 mg/dL (74-99); Non-African American GFR(CKD) >90 (>60 ml/min/1.73 sqM); Sodium 139 mmol/L (137-145)
[2024-01-13 10:20] LABS: Potassium 4.4 mmol/L (3.5-5.1)
[2024-01-13] MEDS: MIDAZOLAM 2 MG/2 ML VIAL IVP ONE (10:51)
[2024-01-13] MEDS: LIDOCAINE 1% INJ 10MG/ML (20 ML MDV) SQ ONE (10:57)
[2024-01-13] MEDS: HEPARIN SODIUM,PORCINE 10,000 UNIT in SODIUM CHLORIDE 0.9% 1,000 ML IRRIGATION ONE (11:00)
[2024-01-13] MEDS: HEPARIN SODIUM,PORCINE (1 ML) 2,500 UNIT in SODIUM CHLORIDE 0.9% 250 ML IRRIGATION ONE (11:00)
[2024-01-13] MEDS: VERAPAMIL SYRINGE (5 MG/10 ML) INTRAARTER ONE (11:02)
[2024-01-13] MEDS: HEPARIN SODIUM 1,000 UN/ML (10ML VL) IVP ONE (11:06)
[2024-01-13] MEDS: IOPAMIDOL-370 100ML BTL INJ ONE (11:24)
[2024-01-13] MEDS ORDERED: SODIUM CHLORIDE 0.9% 1,000 ML IV SCH (11:35)
--- NOTE | 2024-01-13 12:06 | P.CARDCATH ---
Date of Procedure: 01/13/24 Description of Procedure: History: Patient was referred for cardiac catheterization to evaluate for progression of CAD. This is a 73-year-old gentleman with a known history of CAD with multiple interventions performed over the last 33 years. He has history of lung cancer with a right upper lobectomy performed several years ago and a infrarenal aortic aneurysm for which she had stent grafting performed several years ago. He has quit smoking for quite a few years now. He has had interventions of the LAD, RCA and circumflex. For proximal circumflex and mid circumflex he had a intervention performed at [facility] with orbital atherectomy and a good result. He has an obtuse marginal that was jailed with a coiled stent in the mid which has a significant blockage and supplies a fair amount of myocardium but the angiographic appearance of nearly 80 to 90% stenosis is not new. He underwent stenting of multiple areas of RCA performed by me over the years. The most recent stent was out of the ostial LAD along with shockwave lithotripsy and drug-eluting stent. Because of symptoms suggestive of angina and patient's concerned that he may have progression of disease I recommended coronary angiography after optimizing medical therapy. Risks benefits options were explained in great detail to patient and they understood all details and wished to proceed with the procedure Procedure Details: The risks, benefits, complications, treatment options, and expected outcomes were discussed with the patient. The patient and/or family concurred with the proposed plan, giving informed consent. Patient was brought to the oven laborer after IV hydration was begun and oral premedication was given. Patient was further sedated with midazolam. Patient was prepped and draped in the usual manner. Under strict aseptic precautions and local anesthesia using ultrasound guidance, a 6 Macedonian introducer was placed in the right radial artery. Using a JL 3/5 and a JR 4/0 catheters I performed coronary angiography and the same JR catheter was used to check LV pressures and LV gram was not performed. After the procedure was completed the sheaths and catheters were all removed. Hemostasis was achieved with TR band. Saturation in the fingers of the right hand was about 94%. Moderate conscious sedation time was [23 minutes. Patient's oxygen saturation hemodynamics and EKG were monitored closely. Findings: Hemodynamics: The left ventricle end-diastolic pressure was 15 mmHg without any gradient across aortic valve Left Main: Patient has an almost separate origins for LAD and circumflex 1 below the other so the left main technically does not exist LAD: The ostium and proximal portion was stented in October 2022. Now it is widely patent with good flow with minor irregularities and the vessel runs all the way to the apex giving septal and diagonal branches. Angiographic appe sera is very similar to the previous study from August of this year and the postintervention angiogram of October 2022. CIRC: Nondominant vessel proximal ostium and stented area is patent midportion has a coiled stent and from this comes a obtuse minor branch which has a 80 to 90% stenosis unchanged. Distal circumflex is totally occluded. Received some collaterals from the right coronary artery RCA: Dominant vessel has multiple stents in various areas there is a stent in the distal portion before bifurcation that is patent. Proximal stent is also patent. After bifurcation the PLV is smaller and has a subtotal occlusion. PDA is larger and has a 40% narrowing with good flow. PLV provides collaterals to the distal circumflex. LV: Not performed Closure Device: TR band Complications: None Estimated Blood Loss: Minimal Impression: This patient has elevated filling pressures no gradient right dominant system with distal subtotal occlusion of the smaller PLV branch that also provides collaterals to distal circumflex. Circumflex distally is occluded totally obtuse marginal has a tight lesion but the proximal and mid portions are widely patent with good flow. LAD has a separate ostium brisk flow no significant disease stented areas in the ostium and proximal portion are widely patent Pre Procedure Diagnosis: Unstable angina with multivessel CAD Final Post Procedure Diagnosis: Multivessel CAD Recommendation: Findings reviewed in great detail with the patient and several of his sons. I am recommending that there are 3 areas of concern 1 is an obtuse marginal branch of circumflex that is jailed, distal circumflex there is occluded, a PLV branch that has subtotal occlusion distally. All these areas are not new and we should optimize medical therapy for this and he should pace himself and not push himself. LAD, RCA do not have any significant lesions that require attention. Given his anatomy I am recommending aggressive medical therapy with risk factor modification. He probably has some diastolic dysfunction as well with elevated end-diastolic pressures. I will add spironolactone 25 mg daily in the morning and Jardiance 10 mg daily in the morning. Patient will be discharged later on today and I will see him in the office next . Discussed at length with patient and family. Complications: None; patient tolerated the procedure well. Disposition: Pacu - hemodynamically stable. Condition: Stable Discharge Disposition: Discharge patient home later on today.
[2024-01-13 12:49] VITALS: PULSE 70
[2024-01-13] MEDS: ACETAMINOPHEN TAB 500 MG TAB PO STA (14:19)
[2024-01-13 17:17] VITALS: BP 146/72
== END 2024-01-13 16:10 | disposition home or self-care (01) ==
LOC: CATHCVL 09:00
PROVIDERS: ATTEND Internal Medicine Interventional Cardiology
DX: I25.110 Atherosclerotic heart disease of native coronary artery with unstable angina pectoris (principal); I10 Essential (primary) hypertension; J44.9 Chronic obstructive pulmonary disease, unspecified; Z85.118 Personal history of other malignant neoplasm of bronchus and lung; Z87.891 Personal history of nicotine dependence; Z95.5 Presence of coronary angioplasty implant and graft; Z79.899 Other long term (current) drug therapy
CPT/HCPCS: 80048; 85025; J2250; J1644 ×3; J2003; Q9967; 93458

== ENCOUNTER → 2024-01-19 | Outpatient (CLI) | payer MEDICARE ==
[2024-01-19 10:52] LABS: African American GFR (CKD) >90 (>60 ml/min/1.73 sqM); Anion Gap 7 mmol/L; Blood Urea Nitrogen 21 mg/dL (9-20); Calcium 8.6 mg/dL (8.4-10.2); Carbon Dioxide 25 mmol/L (22-30); Chloride 108 mmol/L (98-107); Glucose 118 mg/dL (74-99); Non-African American GFR(CKD) 85 (>60 ml/min/1.73 sqM); Potassium 3.9 mmol/L (3.5-5.1); Sodium 140 mmol/L (137-145)
== END | disposition home or self-care (01) ==
LOC: LABWHC1 10:11
PROVIDERS: ATTEND Internal Medicine
DX: I10 Essential (primary) hypertension (principal); I25.10 Atherosclerotic heart disease of native coronary artery without angina pectoris
CPT/HCPCS: 36415; 80048